=== PATIENT | female | born 1955 | race Caucasian/White ===

== ENCOUNTER 2016-05-30 17:50 | Inpatient (IN) | payer MEDICAID ==
[~2016-05-30] VITALS: Ht 165.1 cm; Wt 58.6 kg
[~2016-05-30 17:50] MED LIST: PRED20 PO; TRIA.1%T TOP; Z.0.NO CURRENT MEDS
[2016-05-30 17:57] VITALS: BP 178/81; PULSE 102; RESP 22; TEMP 98.7; O2SAT 94
[2016-05-30] MEDS ORDERED: ONDANSETRON HCL 4 MG/2 ML VIAL IVP ONE (18:00)
[2016-05-30] MEDS ORDERED: PANTOPRAZOLE SODIUM 40 MG VIAL IVP ONE (18:00)
--- NOTE | 2016-05-30 18:08 | PD ---
HPI Chief Complaint: GI Complaint Time Seen by Provider: 17:58 Travel History International Travel<30 days: No Contact w/Intl Traveler<30days: No Traveled to known affect area: No History of Present Illness HPI 60-year-old female with history of lung cancer and [employer] cancer currently being treated by Dr. Rodriguez, presents to the ER today brought in by EMS for several days history of diarrhea, feeling fatigued, and today had blood in her stools. She has been nauseous, not eating well at home. She denies any fevers or any other symptoms. Patient states that she has had C. difficile diarrhea in the past and states it feels like that. She denies any recent antibiotic use. She does not know any sick contacts. Modifying Factors: None Associated Signs & Symptoms: Nausea, diarrhea, blood in the stools Risk Factors: None PFSH Past Medical History Chemotherapy: Yes Cerebrovascular Accident: Yes Diminished Hearing: Yes (TINNITIS) Hypertension: Yes (HAS STOPPED TAKING HER MED) Musculoskeletal: Yes (POSSIBLE TYPE OF ARTHRITIS) Respiratory: Yes Menopausal: Yes Dilation and Curettage (D&C): Yes Past Surgical History Section: Yes Tonsillectomy: Yes Social History Alcohol Use: Yes (STATES SHE HAD 9 SHOTS OF VODKA LAST PM, ONLY DRINKS WHEN HANDS HURT) Tobacco Use: Yes () Substance Use: No Allergies-Medications (Allergen,Severity, Reaction): Coded Allergies: Penicillin (Verified Allergy, Severe, THROAT SWELLS, 05/30/16) Reported Meds & Prescriptions Reported Meds & Active Scripts Active Reported Dexamethasone 4 Mg Tab 4 Mg PO BID Prochlorperazine Maleate 10 Mg Tab 10 Mg PO Q6H PRN Zofran (Ondansetron HCl) 8 Mg Tab 8 Mg PO TID Review of Systems Except as stated in HPI: all other systems reviewed are Neg Physical Exam Narrative GENERAL: Well-nourished, well-developed elderly white female patient in no acute distress. Awake and oriented 3. SKIN: Warm and dry. HEAD: Normocephalic. EYES: No scleral icterus. No injection or drainage. NECK: Supple, trachea midline. CARDIOVASCULAR: Regular rate and rhythm without murmurs, gallops, or rubs. RESPIRATORY: Breath sounds equal bilaterally. No accessory muscle use. GASTROINTESTINAL: Abdomen soft, non-tender, nondistended. RECTAL EXAM: No masses or tenderness, stool is reddish brown. Hemoccult positive. MUSCULOSKELETAL: No cyanosis, or edema. BACK: Nontender without obvious deformity. No CVA tenderness. Data Data Last Documented VS Vital Signs Date Time Temp Pulse Resp B/P Pulse Ox O2 Delivery O2 Flow Rate FiO2 05/30/16 19:12 99 14 170/78 94 Room Air 05/30/16 18:03 94 05/30/16 17:57 98.7 Orders Complete Blood Count With Diff (05/30/16 17:58) Comprehensive Metabolic Panel (05/30/16 17:58) Lipase (05/30/16 17:58) Prothrombin Time / Inr (Pt) (05/30/16 17:58) Act Partial Throm Time (Ptt) (05/30/16 17:58) Urinalysis - C+S If Indicated (05/30/16 17:58) Type And Screen (05/30/16 17:58) Ecg Monitoring (05/30/16 17:58) Iv Access Insert/Monitor (05/30/16 17:58) Oximetry (05/30/16 17:58) Ondansetron Inj (Zofran Inj) (05/30/16 18:00) Pantoprazole Inj (Protonix Inj) (05/30/16 18:00) Sodium Chloride 0.9% Flush (Ns Flush) (05/30/16 18:00) C Diff Toxin Pcr (05/30/16 17:58) Admit Order (Ed Use Only) (05/30/16 19:12) Labs Laboratory Tests Test 05/30/16 05/30/16 18:05 18:50 White Blood Count 6.3 TH/MM3 Red Blood Count 2.80 MIL/MM3 Hemoglobin 10.6 GM/DL Hematocrit 30.5 % Mean Corpuscular Volume 109.1 FL Mean Corpuscular Hemoglobin 37.8 PG Mean Corpuscular Hemoglobin 34.6 % Concent Red Cell Distribution Width 15.3 % Platelet Count 146 TH/MM3 Mean Platelet Volume 7.9 FL Neutrophils (%) (Auto) 90.2 % Lymphocytes (%) (Auto) 2.6 % Monocytes (%) (Auto) 6.5 % Eosinophils (%) (Auto) 0.1 % Basophils (%) (Auto) 0.6 % Neutrophils # (Auto) 5.7 TH/MM3 Lymphocytes # (Auto) 0.2 TH/MM3 Monocytes # (Auto) 0.4 TH/MM3 Eosinophils # (Auto) 0.0 TH/MM3 Basophils # (Auto) 0.0 TH/MM3 CBC Comment DIFF FINAL Differential Comment Prothrombin Time 13.5 SEC Prothromb Time International 1.2 RATIO Ratio Activated Partial 29.7 SEC Thromboplast Time Sodium Level 130 MEQ/L Potassium Level 3.3 MEQ/L Chloride Level 85 MEQ/L Carbon Dioxide Level 26.7 MEQ/L Anion Gap 18 MEQ/L Blood Urea Nitrogen 2 MG/DL Creatinine 0.30 MG/DL Estimat Glomerular Filtration 226 ML/MIN Rate Random Glucose 56 MG/DL Calcium Level 7.6 MG/DL Total Bilirubin 1.1 MG/DL Aspartate Amino Transf 146 U/L (AST/SGOT) Alanine Aminotransferase 67 U/L (ALT/SGPT) Alkaline Phosphatase 460 U/L Total Protein 5.8 GM/DL Albumin 2.3 GM/DL Lipase 36 U/L Blood Type O POSITIVE Antibody Screen NEGATIVE Blood Bank Comment Urine Color YELLOW Urine Turbidity CLEAR Urine pH 5.5 Urine Specific [place] 1.013 Urine Protein 30 mg/dL Urine Glucose (UA) NEG mg/dL Urine Ketones 150 mg/dL Urine Occult Blood NEG Urine Nitrite NEG Urine Bilirubin SMALL Urine Urobilinogen 2.0 MG/DL Urine Leukocyte Esterase NEG Urine RBC LESS THAN 1 /hpf Urine WBC 1 /hpf Urine Squamous Epithelial 1 /hpf Cells Urine Mucus FEW /lpf Microscopic Urinalysis Comment CATH-CULT NOT IND MDM Medical Decision Making Medical Screen Exam Complete: Yes Emergency Medical Condition: Yes Medical Record Reviewed: Yes Interpretation(s) Laboratory Tests Test 05/30/16 18:05 Red Blood Count 2.80 MIL/MM3 (4.00-5.30) Hemoglobin 10.6 GM/DL (11.6-15.3) Hematocrit 30.5 % (35.0-46.0) Mean Corpuscular Volume 109.1 FL (80.0-100.0) Mean Corpuscular Hemoglobin 37.8 PG (27.0-34.0) Platelet Count 146 TH/MM3 (150-450) Neutrophils (%) (Auto) 90.2 % (16.0-70.0) Lymphocytes (%) (Auto) 2.6 % (9.0-44.0) Lymphocytes # (Auto) 0.2 TH/MM3 (1.0-4.8) Prothrombin Time 13.5 SEC (9.8-11.6) Sodium Level 130 MEQ/L (136-145) Potassium Level 3.3 MEQ/L (3.5-5.1) Chloride Level 85 MEQ/L (98-107) Anion Gap 18 MEQ/L (5-15) Blood Urea Nitrogen 2 MG/DL (7-18) Creatinine 0.30 MG/DL (0.50-1.00) Random Glucose 56 MG/DL (74-106) Calcium Level 7.6 MG/DL (8.5-10.1) Total Bilirubin 1.1 MG/DL (0.2-1.0) Aspartate Amino Transf 146 U/L (15-37) (AST/SGOT) Alanine Aminotransferase 67 U/L (10-53) (ALT/SGPT) Alkaline Phosphatase 460 U/L (45-117) Total Protein 5.8 GM/DL (6.4-8.2) Albumin 2.3 GM/DL (3.4-5.0) Lipase 36 U/L (73-393) Differential Diagnosis Nausea, diarrhea, blood in the stoolsGI bleed versus C. difficile toxin versus gastroenteritis versus diverticulitis versus dehydration versus metabolic issues Narrative Course Hemoccult test is positive. H&H is stable. Her abdomen is benign. She was given Protonix in the ER. At this point, my plan would be to admit her for further evaluation. C. difficile toxin was also ordered for further evaluation. Case was discussed with Dr. Kumar for admission. [facility] Point of Care Internal Pos. & Neg. Controls: Passed Fecal Specimen Occult Blood: Positive Diagnosis Primary Impression: GI bleed Admitting Information Admitting Physician Requests: Admit Jacqueline James MD May 30, 2016 18:08
[2016-05-30 18:19] LABS: AUTOMATED NEUTROPHIL # 5.7 TH/MM3 (1.8-7.7); BASOPHIL % 0.6 % (0.0-2.0); EOSINOPHIL % 0.1 % (0.0-4.0); HEMATOCRIT 30.5 % (35.0-46.0); HEMO FLAGS DIFF FINAL; LYMPH % 2.6 % (9.0-44.0); LYMPHOCYTE # 0.2 TH/MM3 (1.0-4.8); MEAN CELL VOLUME 109.1 FL (80.0-100.0); MEAN CORPUSCULAR HEMOGLOBIN 37.8 PG (27.0-34.0); MEAN CORPUSCULAR HGB CONC 34.6 % (32.0-36.0); MONO % 6.5 % (0.0-8.0); NEUT % 90.2 % (16.0-70.0); PLATELET COUNT 146 TH/MM3 (150-450); RED CELL DISTRIBUTION WIDTH 15.3 % (11.6-17.2); WHITE BLOOD COUNT 6.3 TH/MM3 (4.0-11.0)
[2016-05-30 18:37] LABS: APTT (PATIENT) 29.7 SEC (24.3-30.1); INTERNATIONAL NORMALIZED RATIO 1.2 RATIO; PROTHROMBIN TIME - PATIENT 13.5 SEC (9.8-11.6)
[2016-05-30 18:40] LABS: ALKALINE PHOSPHATASE 460 U/L (45-117); ALT (GPT) 67 U/L (10-53); ANION GAP 18 MEQ/L (5-15); AST (GOT) 146 U/L (15-37); BICARBONATE 26.7 MEQ/L (21.0-32.0); BLOOD UREA NITROGEN 2 MG/DL (7-18); CHLORIDE 85 MEQ/L (98-107); GLOMERULAR FILTRATION RATE 226 ML/MIN (>89); POTASSIUM 3.3 MEQ/L (3.5-5.1); SODIUM (NA) 130 MEQ/L (136-145); TOTAL BILIRUBIN ADULT 1.1 MG/DL (0.2-1.0)
[2016-05-30] MEDS ORDERED: PROC10TA PO (19:01)
[2016-05-30] MEDS ORDERED: DEXA4TAB PO (19:01)
[2016-05-30] MEDS ORDERED: ZOFR8TAB PO (19:01)
[2016-05-30 19:09] LABS: BLOOD, URINE NEG (NEG); COMMENT (UR) CATH-CULT NOT IND; CULTURE IF INDICATED CATH CULTURE NOT IND; GLUCOSE,URINE NEG (NEG); KETONE, URINE 150 mg/dL (NEG); MUCUS URINE FEW /lpf (OCC); NITRITE,URINE NEG (NEG); PH, URINE 5.5 (5.0-8.5); SQUAMOUS EPITHELIAL CELL URINE 1 /hpf (0-5); URINE COLOR YELLOW (YELLW/STRAW)
[2016-05-30] MEDS: SODIUM CHLORIDE 0.9% FLUSH 5 ML FLUSH IVF PRN (19:10)
[2016-05-30 19:12] VITALS: BP 170/78; PULSE 99; RESP 14; O2SAT 94
[2016-05-30] MEDS ORDERED: ONDANSETRON HCL 4 MG/2 ML VIAL IV PUSH PRN (19:15)
[2016-05-30] MEDS ORDERED: SODIUM CHLOR 0.9% 1000 ML INJ 1,000 ML IV SCH (20:00)
[2016-05-30 20:09] VITALS: BP 168/74; PULSE 98; RESP 14; O2SAT 96
[2016-05-30 21:20] VITALS: BP 166/68; PULSE 96; RESP 16; O2SAT 96
--- NOTE | 2016-05-30 21:35 | HHI.HP ---
[facility] Service [facility] Primary Care Physician Christian Foss Admission Diagnosis GI bleed/diarrhea Diagnoses: (1) GI bleed Diagnosis: Principal Chief Complaint: rectal bleed Travel History International Travel<30 Days: No Contact w/Intl Traveler <30 Da: No Traveled to Known Affected Are: No History of Present Illness patient is a 60 y/o female with history of cervical and lung cancer, hypertension who presented to ER with rectal bleed. she says that she had one episode of rectal bleed earlier today. she says that she passed some bright-red and blood clots. she denies any abdominal pain, nausea or vomiting but she says that she feels very weak. she says that she never had colonoscopy in the past. she denies any sob but she has some dizziness when she's standing up. she's being followed up by and the last chemo session was about two months ago. Review of Systems Constitutional: COMPLAINS OF: Fatigue, Dizziness, DENIES: Fever, Weight loss, Chills, Night Sweats Eyes: DENIES: Blurred vision, Diplopia, Vision loss, Double Vision Ears, nose, mouth, throat: DENIES: Tinnitus, Vertigo, Throat pain, Epistaxis Respiratory: DENIES: Apneas, Cough, Snoring, Wheezing, Hemoptysis, Sputum production, Shortness of breath Cardiovascular: DENIES: Chest pain, Palpitations, Syncope, Dyspnea on Exertion , PND, Lower Extremity Edema, Orthopnea, Claudication Gastrointestinal: COMPLAINS OF: Bloody stools, DENIES: Abdominal pain, Black stools, Constipation, Diarrhea, Nausea, Vomiting, Difficulty Swallowing, Anorexia Genitourinary: DENIES: Urinary frequency, Urgency, Hematuria, Dysuria Musculoskeletal: DENIES: Joint pain, Muscle aches, Stiffness, Joint Swelling Integumentary: DENIES: Rash Neurologic: DENIES: Abnormal gait, Headache, Localized weakness, Paresthesias, Seizures, Speech Problems, Tremor, Poor Balance Psychiatric: DENIES: Anxiety, Confusion, Mood changes, Depression, Hallucinations, Agitation, Suicidal Ideation, Homicidal Ideation, Delusions Past Family Social History Past Medical History cervical and lung cancer hypertension Past Surgical History tonsillectomy Reported Medications none. Allergies: Coded Allergies: Penicillin (Verified Allergy, Severe, THROAT SWELLS, 05/30/16) Active Ordered Medications Current Medications Ondansetron HCl (Zofran Inj) 4 mg ONCE ONCE IVP Last administered on at 19:09; Start 05/30/16 at 18:00; Stop 05/30/16 at 18:02; Status DC Pantoprazole Sodium (Protonix Inj) 40 mg ONCE ONCE IVP Last administered on at 19:09; Start 05/30/16 at 18:00; Stop 05/30/16 at 18:02; Status DC IV Flush (NS Flush) 2 ml UNSCH PRN IVF FLUSH AFTER USING IV ACCESS Last administered on 05/30/16at 19:10; Start 05/30/16 at 18:00 Pantoprazole Sodium 40 mg 40 mg Q24H IV PUSH ; Start 05/31/16 at 06:00 Sodium Chloride (NS 1000 ml Inj) 1,000 ml @ 100 mls/hr Q10H IV Last administered on 05/30/16at 19:57; Start 05/30/16 at 20:00 Ondansetron HCl (Zofran Inj) 4 mg Q8HR PRN IV PUSH NAUSEA; Start 05/30/16 at 19:15 Family History not relevant. Social History smokes ten cigarettes a day- drinks three times a week. Physical Exam Vital Signs Vital Signs Date Time Temp Pulse Resp B/P Pulse Ox O2 Delivery O2 Flow Rate FiO2 05/30/16 20:09 98 14 168/74 96 Room Air 05/30/16 19:12 99 14 170/78 94 Room Air 05/30/16 18:03 Room Air 94 05/30/16 17:57 98.7 102 22 178/81 94 Physical Exam GENERAL: This is a well-nourished, well-developed patient, in no apparent distress. SKIN: No rashes, ecchymoses or lesions. Cool and dry. HEAD: Atraumatic. Normocephalic. No temporal or scalp tenderness. EYES: Pupils equal round and reactive. Extraocular motions intact. No scleral icterus. No injection or drainage. ENT: Nose without bleeding, purulent drainage or septal hematoma. Throat without erythema, tonsillar hypertrophy or exudate. Uvula midline. Airway patent. NECK: Trachea midline. No JVD or lymphadenopathy. Supple, nontender, no meningeal signs. CARDIOVASCULAR: Regular rate and rhythm without murmurs, gallops, or rubs. RESPIRATORY: Clear to auscultation. Breath sounds equal bilaterally. No wheezes , rales, or rhonchi. GASTROINTESTINAL: Abdomen soft, non-tender, nondistended. No hepato-splenomegaly , or palpable masses. No guarding. MUSCULOSKELETAL: Extremities with mild bilateral pedal edema. NEUROLOGICAL: Awake and alert. Cranial nerves II through XII intact. Motor and sensory grossly within normal limits. Five out of 5 muscle strength in all muscle groups. Normal speech. Laboratory Laboratory Tests Test 05/30/16 05/30/16 18:05 18:50 White Blood Count 6.3 Red Blood Count 2.80 Hemoglobin 10.6 Hematocrit 30.5 Mean Corpuscular Volume 109.1 Mean Corpuscular Hemoglobin 37.8 Mean Corpuscular Hemoglobin 34.6 Concent Red Cell Distribution Width 15.3 Platelet Count 146 Mean Platelet Volume 7.9 Neutrophils (%) (Auto) 90.2 Lymphocytes (%) (Auto) 2.6 Monocytes (%) (Auto) 6.5 Eosinophils (%) (Auto) 0.1 Basophils (%) (Auto) 0.6 Neutrophils # (Auto) 5.7 Lymphocytes # (Auto) 0.2 Monocytes # (Auto) 0.4 Eosinophils # (Auto) 0.0 Basophils # (Auto) 0.0 CBC Comment DIFF FINAL Differential Comment Prothrombin Time 13.5 Prothromb Time International 1.2 Ratio Activated Partial 29.7 Thromboplast Time Sodium Level 130 Potassium Level 3.3 Chloride Level 85 Carbon Dioxide Level 26.7 Anion Gap 18 Blood Urea Nitrogen 2 Creatinine 0.30 Estimat Glomerular Filtration 226 Rate Random Glucose 56 Calcium Level 7.6 Total Bilirubin 1.1 Aspartate Amino Transf 146 (AST/SGOT) Alanine Aminotransferase 67 (ALT/SGPT) Alkaline Phosphatase 460 Total Protein 5.8 Albumin 2.3 Lipase 36 Blood Type O POSITIVE Antibody Screen NEGATIVE Blood Bank Comment Urine Color YELLOW Urine Turbidity CLEAR Urine pH 5.5 Urine Specific [place] 1.013 Urine Protein 30 Urine Glucose (UA) NEG Urine Ketones 150 Urine Occult Blood NEG Urine Nitrite NEG Urine Bilirubin SMALL Urine Urobilinogen 2.0 Urine Leukocyte Esterase NEG Urine RBC LESS THAN 1 Urine WBC 1 Urine Squamous Epithelial 1 Cells Urine Mucus FEW Microscopic Urinalysis Comment CATH-CULT NOT IND Result Diagram: 05/30/16180405/30/161804 Assessment and Plan Assessment and Plan A/P -rectal bleed with diarrhea monitor H/H- continue PPI- will consult GI check the stool for culture -hyponatremia; start IV NS and monitor the level; BMP in am -mild hypokalemia; will replace and monitor -generalized weakness- will consult PT -elevated LFT's- check liver sonogram -history of cervical and lung cancer- f/u with -hypertension; vasotec prn for now- will monitor -DVT prophylaxis with SCD's- no chemical prophylaxis because of GI bleed Discussed Condition With the ER physician and the patient. Problem Qualifiers (1) GI bleed: Qualified Code: K92.2 - Gastrointestinal hemorrhage, unspecified gastrointestinal hemorrhage type Gina Hale MD May 30, 2016 21:35
[2016-05-30] MEDS ORDERED: ENALAPRILAT 1.25 MG/ML VIAL IV PUSH PRN (21:45)
[2016-05-30 22:19] VITALS: BP 170/72; PULSE 97; RESP 16; O2SAT 95
[2016-05-30] MEDS: NS + KCL 20 MEQ INJ 1,000 ML IV SCH (22:27)
--- NOTE | 2016-05-30 22:42 | RADRPT ---
EXAM DATE/TIME: 05/30/2016 21:55 [facility] COMPARISON: No previous studies available for comparison. INDICATIONS : Abnormal labs. MEDICAL HISTORY : Stroke. Hypertension. Tinnitis. Melena. Arthritis. Lung cancer. SURGICAL HISTORY : Tonsillectomy. section. D&C. Chemotherapy. Right chest port. ENCOUNTER: Initial ACUITY: 1 day PAIN SCORE: 1/10 LOCATION: Right upper quadrant MEASUREMENTS: LIVER: 20.2 cm length COMMON DUCT: 7 mm RIGHT KIDNEY: 9.8 x 4.4 x 6.8 cm SPLEEN: 8.4 cm length FINDINGS: The liver is slightly echogenic which maybe due to fatty infiltration and or hepatocellular dysfuncti on. There is sludge within the gallbladder with slight pericholecystic fluid and gallbladder wall tree sures 2 mm. The visualized head of the pancreas, and right kidney appear grossly intact for technique . CONCLUSION: 1. The liver is slightly echogenic which maybe due to fatty infiltration and or hepatocellular dysfun ction. 2. Sludge in the gallbladder with mild pericholecystic fluid nonspecific. No definite gallstones. Shantel Pryor MD on May 30, 2016 at 22:38 Board Certified Radiologist. This report was verified electronically.
[2016-05-30 22:44] VITALS: BP 146/79; PULSE 94; RESP 18; TEMP 98; O2SAT 98
[2016-05-31 02:02] LABS: HEMATOCRIT 29.2 % (35.0-46.0)
[2016-05-31 04:16] VITALS: BP 121/57; PULSE 99; RESP 16; TEMP 98.2; O2SAT 94
[2016-05-31 04:28] LABS: AUTOMATED NEUTROPHIL # 4.9 TH/MM3 (1.8-7.7); BASOPHIL % 0.2 % (0.0-2.0); EOSINOPHIL % 0.4 % (0.0-4.0); HEMATOCRIT 27.6 % (35.0-46.0); HEMO FLAGS DIFF FINAL; LYMPH % 3.3 % (9.0-44.0); LYMPHOCYTE # 0.2 TH/MM3 (1.0-4.8); MEAN CELL VOLUME 108.1 FL (80.0-100.0); MEAN CORPUSCULAR HEMOGLOBIN 38.1 PG (27.0-34.0); MEAN CORPUSCULAR HGB CONC 35.2 % (32.0-36.0); MONO % 6.2 % (0.0-8.0); NEUT % 89.9 % (16.0-70.0); PLATELET COUNT 121 TH/MM3 (150-450); RED BLOOD COUNT 2.55 MIL/MM3 (4.00-5.30); RED CELL DISTRIBUTION WIDTH 14.8 % (11.6-17.2); WHITE BLOOD COUNT 5.4 TH/MM3 (4.0-11.0)
[2016-05-31 04:56] LABS: BICARBONATE 25.9 MEQ/L (21.0-32.0)
[2016-05-31 05:01] LABS: POTASSIUM 2.8 MEQ/L (3.5-5.1)
[2016-05-31] MEDS ORDERED: POTASSIUM CHLOR 20 MEQ PREMIX 100 ML IV ONE (05:15)
[2016-05-31 05:24] LABS: CALCIUM-PROTEIN CORRECTED 8.6 MG/DL (8.5-10.1)
[2016-05-31] MEDS ORDERED: PANTOPRAZOLE SODIUM 40 MG VIAL IV PUSH SCH (06:00)
[2016-05-31 08:15] VITALS: BP 140/72; PULSE 95; RESP 18; TEMP 99; O2SAT 93
[2016-05-31 08:15] LABS: C. DIFF EPI 027 PRESUMPTIVE NEGATIVE (NEGATIVE)
[2016-05-31 08:57] LABS: C. DIFF TOXIN PCR POSITIVE (NEGATIVE)
--- NOTE | 2016-05-31 09:33 | MB ---
cc: CINTHIA VÁSQUEZ MD DATE OF CONSULTATION 05/31/2016 TYPE OF CONSULTATION GI consult REFERRING PHYSICIAN Dr. Hale CONSULTING PHYSICIAN Dr. Vásquez REASON FOR CONSULTATION Bleeding per rectum HISTORY OF PRESENT ILLNESS This is a 60-year-old female patient with a past medical history of hypertension, lung and cervical CA status post chemotherapy who presented to the emergency room complaining of rectal bleeding. The rectal bleeding was earlier that day and she had two episodes of similar bleeding in the past that were described as fresh bright red in color with occasional clots. She denies any abdominal pain, change in bowel habits, although she sometimes mentions attacks of diarrhea and constipation. She denies change in weight or appetite and she also overall feels weak, but no other associated symptoms. The patient denies any nausea or vomiting, jaundice or any other gastrointestinal symptoms. REVIEW OF SYSTEMS GENERAL: The patient is complaining of fatigue and generalized weakness, but denies any change in weight or appetite. No weight loss, fevers, chills or rigors. CARDIAC: Denies any chest pain, shortness of breath or palpitations. CHEST: Denies any shortness of breath, dyspnea, orthopnea or PND. GASTROINTESTINAL: Denies any symptoms other than the ones mentioned in the history of present illness. GENITOURINARY: Denies any polyuria, aneuria or dysuria. NEUROLOGIC: No headache, dizziness, loss of consciousness. SKIN: Denies any skin rash, itching or skin discoloration. PAST MEDICAL HISTORY Positive for: 1. Cervical and lung CA 2. Hypertension PAST SURGICAL HISTORY 1. Tonsillectomy 2. MEDICATIONS None ALLERGIES PENICILLIN, REACTION, THROAT SWELLS. FAMILY HISTORY Noncontributory PSYCHOSOCIAL HISTORY The patient is a smoker and drinks alcohol occasionally. PHYSICAL EXAM On examination, the patient appeared to be comfortable and not in distress or in pain. Hemodynamically stable with a blood pressure of 150/75, respiratory rate of 14, pulse of 98. HEAD AND NECK: Normocephalic, atraumatic. Pupils equal and reactive to light. Supple neck. No lymphadenopathy. No thyromegaly. CHEST: Chest examination clear to auscultation bilaterally. No crackles or wheezes. HEART: Regular rate and rhythm. No murmurs. ABDOMEN: Soft, nontender. No hepatosplenomegaly. No palpable masses. EXTREMITIES: Normal pulses. No edema. NEUROLOGIC EXAMINATION: Nonfocal. Cranial nerves II-XII grossly intact. SKIN: No rashes. LABORATORY DATA Hemoglobin 10.6 down to 9.7 today, hematocrit 30.5 down to 27.6. Indices suggestive of macrocytic picture. PT/PTT within normal limits. Chemistry potassium of 2.8, creatinine 0.3, otherwise unremarkable labs. LABORATORY DATA His liver ultrasound fat infiltration of the liver noted with sludge in the gallbladder and mild pericholecystic fluids and no stones. ASSESSMENT/PLAN A 60-year-old female patient with past medical history of lung and cervical CA and hypertension who presented with: 1. Bleeding per rectum described as intermittent with fresh blood red in color and painless. 2. No previous endoscopy evaluation, colonoscopy or endoscopy. 3. Significant past medical history for malignancies. 4. A drop in her blood counts and anemia since admission. 5. Macrocytic normochromic anemia. RECOMMENDATIONS We will schedule the patient for endoscopy evaluation including endoscopy and a colonoscopy. We will start her on a clear liquid diet and GoLYTELY in the afternoon in addition to Dulcolax for bowel cleansing. A full explanation of the procedure including risks, benefits and possible complications was explained to the patient and she agreed to proceed with that. Further recommendations to follow. Cinthia SALES /8:59 AM /9:[address]
[2016-05-31 11:56] VITALS: BP 137/97; PULSE 99; RESP 18; TEMP 97.8; O2SAT 95
--- NOTE | 2016-05-31 15:11 | HHI.PR ---
Subjective Remarks Laying in bed, she is little anxious about the procedure tomorrow No chest pain or short of breath or headache Objective Vitals Vital Signs Date Time Temp Pulse Resp B/P Pulse Ox O2 Delivery O2 Flow Rate FiO2 05/31/16 11:56 97.8 99 18 137/97 95 05/31/16 08:15 99.0 95 18 140/72 93 05/31/16 04:16 98.2 99 16 121/57 94 05/30/16 22:44 98.0 94 18 146/79 98 05/30/16 22:19 97 16 170/72 95 Room Air 05/30/16 21:20 96 16 166/68 96 Room Air 05/30/16 20:09 98 14 168/74 96 Room Air 05/30/16 19:12 99 14 170/78 94 Room Air 05/30/16 18:03 Room Air 94 05/30/16 17:57 98.7 102 22 178/81 94 Result Diagram: 05/31/16 0353 05/31/16 0353 Objective Remarks GENERAL: This is a well-nourished, well-developed patient, in no apparent distress. SKIN: No rashes, warm and dry HEAD: Atraumatic. Normocephalic. EYES: Pupils equal round and reactive. Extraocular motions intact. No scleral icterus. ENT: Nose without bleeding, or drainage, Airway patent. NECK: Trachea midline. Supple CARDIOVASCULAR: Regular rate and rhythm without murmurs, gallops, or rubs. RESPIRATORY: Fair air entry bilaterally. No wheezes, rales, or rhonchi. GASTROINTESTINAL: Abdomen soft, non-tender, nondistended. Positive bowel sounds MUSCULOSKELETAL: Extremities without clubbing, cyanosis, or edema. Pedal pulses appreciated NEUROLOGICAL: Awake and alert. Moves all extremity. Normal speech.no focal neurological deficit A/P Problem List: (1) GI bleed ICD Code: K92.2 Status: Acute Assessment and Plan C. difficile diarrhea Acute rectal bleed Hyponatremia Hypokalemia Elevated LFT Generalized weakness Hypertension History of cervical and lung cancer following up with Dr. Montano DVT prophylaxis with SCD only due to GI bleed Plan: Continue IVF fluid, IV Protonix Appreciate GI consultation, plan for EGD and colonoscopy tomorrow Monitor H&H Personally reviewed liver ultrasound showing changes consistent with fatty liver , pericholecystic fluid nonspecific PT OT Problem Qualifiers (1) GI bleed: Qualified Code: K92.2 - Gastrointestinal hemorrhage, unspecified gastrointestinal hemorrhage type Katie Mishra MD May 31, 2016 15:11
[2016-05-31 15:47] VITALS: BP 111/66; PULSE 100; RESP 18; O2SAT 94
[2016-05-31] MEDS: NS + KCL 20 MEQ INJ 1,000 ML IV SCH ×2 (15:53→17:33)
[2016-05-31] MEDS ORDERED: PEG (High)/E-LYTE SOLN 4000 ML BTL PO ONE (16:00)
[2016-05-31] MEDS ORDERED: BISACODYL EC 5 MG TABEC PO ONE (16:00)
[2016-05-31] MEDS: PANTOPRAZOLE SODIUM 40 MG VIAL IV PUSH SCH (17:33)
[2016-05-31 19:13] VITALS: BP 154/81; PULSE 103; RESP 20; TEMP 97.6; O2SAT 95
[2016-05-31 19:59] LABS: BICARBONATE 30.6 MEQ/L (21.0-32.0); MAGNESIUM 0.7 MG/DL (1.5-2.5); POTASSIUM 3.1 MEQ/L (3.5-5.1)
[2016-05-31] MEDS ORDERED: DEXAMETHASONE 4 MG TAB PO SCH (21:00)
[2016-05-31 23:27] VITALS: BP 127/73; PULSE 92; RESP 20; TEMP 97.6; O2SAT 95
[2016-06-01] MEDS: NS + KCL 20 MEQ INJ 1,000 ML IV SCH ×2 (03:24→12:52)
[2016-06-01 03:59] VITALS: BP 138/83; PULSE 90; RESP 20; TEMP 97.6; O2SAT 95
[2016-06-01 04:50] LABS: BICARBONATE 31.5 MEQ/L (21.0-32.0)
[2016-06-01 04:51] LABS: POTASSIUM 2.5 MEQ/L (3.5-5.1)
[2016-06-01 05:10] LABS: CALCIUM-PROTEIN CORRECTED 8.3 MG/DL (8.5-10.1)
[2016-06-01] MEDS ORDERED: MAGNESIUM SULFATE INJ 4 GM in DEXTROSE 5% IN WATER 100ML INJ 92 ML IV SCH ×2 (05:15)
[2016-06-01] MEDS ORDERED: POTASSIUM PHOSPHATE INJ 30 MMOL in SODIUM CHLOR 0.9% 250 ML INJ 250 ML IV ONE (05:15)
[2016-06-01] MEDS ORDERED: POTASSIUM CL 40 MEQ/30 ML LIQ UDC PO ONE (05:15)
[2016-06-01] MEDS ORDERED: MAGNESIUM SULFATE 1 GM PREMIX 100 ML IV SCH (05:15)
[2016-06-01] MEDS: PANTOPRAZOLE SODIUM 40 MG VIAL IV PUSH SCH ×2 (05:37→17:56)
[2016-06-01 07:34] VITALS: BP 117/71; PULSE 88; RESP 16; TEMP 97.6; O2SAT 94
[2016-06-01 11:47] VITALS: BP 121/69; PULSE 88; RESP 16; TEMP 97.3; O2SAT 94
[2016-06-01] MEDS ORDERED: BISACODYL EC 5 MG TABEC PO ONE (12:00)
--- NOTE | 2016-06-01 15:14 | HHI.PR ---
Subjective Remarks Patient not happy about changing GI procedure scope till tomorrow "Either today or never " Afebrile, she stated the diarrhea still bad No abdominal pain or fever Objective Vitals Vital Signs Date Time Temp Pulse Resp B/P Pulse Ox O2 Delivery O2 Flow Rate FiO2 06/01/16 11:47 97.3 88 16 121/69 94 06/01/16 07:34 97.6 88 16 117/71 94 06/01/16 03:59 97.6 90 20 138/83 95 05/31/16 23:27 97.6 92 20 127/73 95 05/31/16 19:13 97.6 103 20 154/81 95 05/31/16 15:47 100 18 111/66 94 I/O 05/31/16 05/31/16 05/31/16 06/01/16 06/01/16 06/01/16 07:00 15:00 23:00 07:00 15:00 23:00 Intake Total 800 ml Balance 800 ml Intake Oral 400 ml IV Total 400 ml # Voids 2 1 2 # Bowel Movements 1 2 5 Result Diagram: 05/31/16 0353 06/01/16 0355 Objective Remarks GENERAL: This is a well-nourished, well-developed patient, in no apparent distress. SKIN: No rashes, warm and dry HEAD: Atraumatic. Normocephalic. EYES: Pupils equal round and reactive. Extraocular motions intact. No scleral icterus. ENT: Nose without bleeding, or drainage, Airway patent. NECK: Trachea midline. Supple CARDIOVASCULAR: Regular rate and rhythm without murmurs, gallops, or rubs. RESPIRATORY: Fair air entry bilaterally. No wheezes, rales, or rhonchi. GASTROINTESTINAL: Abdomen soft, non-tender, nondistended. Positive bowel sounds MUSCULOSKELETAL: Extremities without clubbing, cyanosis, or edema. Pedal pulses appreciated NEUROLOGICAL: Awake and alert. Moves all extremity. Normal speech.no focal neurological deficit A/P Problem List: (1) GI bleed ICD Code: K92.2 Status: Acute Assessment and Plan C. difficile diarrhea Acute rectal bleed Hyponatremia Hypokalemia Elevated LFT Generalized weakness Hypertension History of cervical and lung cancer following up with Dr. Montano DVT prophylaxis with SCD only due to GI bleed Plan: Potassium was 2.3 last night, will repeat BMP and replace as needed Continue IVF fluid, IV Protonix Appreciate GI consultation, plan was for EGD and colonoscopy today but change tomorrow due to not optimal bowel preparation Monitor H&H Personally reviewed liver ultrasound showing changes consistent with fatty liver , pericholecystic fluid nonspecific PT OT Problem Qualifiers (1) GI bleed: Qualified Code: K92.2 - Gastrointestinal hemorrhage, unspecified gastrointestinal hemorrhage type Katie Mishra MD Jun 01, 2016 15:14
[2016-06-01] MEDS ORDERED: MAGNESIUM CITRATE SOLN 300 ML BTL PO ONE (16:00)
[2016-06-01 16:34] VITALS: BP 113/74; PULSE 89; RESP 16; TEMP 97.4; O2SAT 96
[2016-06-01 16:48] LABS: BICARBONATE 30.7 MEQ/L (21.0-32.0)
[2016-06-01 17:20] LABS: CALCIUM-PROTEIN CORRECTED 8.1 MG/DL (8.5-10.1)
[2016-06-01 18:37] LABS: REVIEW FLAG FINAL
[2016-06-01 20:23] VITALS: BP 134/70; PULSE 82; RESP 18; TEMP 98.4; O2SAT 97
[2016-06-02] VITALS (7 sets, daily range): BP systolic 121–145; BP diastolic 70–90; PULSE 74–95; RESP 16–18; TEMP 97.2–98.9; O2SAT 96–99
[2016-06-02 04:02] LABS: HEMATOCRIT 30.6 % (35.0-46.0); REVIEW FLAG FINAL
[2016-06-02] MEDS: PANTOPRAZOLE SODIUM 40 MG VIAL IV PUSH SCH ×2 (05:55→16:56)
[2016-06-02 06:16] LABS: BICARBONATE 31.2 MEQ/L (21.0-32.0)
[2016-06-02 06:19] LABS: POTASSIUM 2.9 MEQ/L (3.5-5.1)
[2016-06-02 07:02] LABS: CALCIUM-PROTEIN CORRECTED 7.9 MG/DL (8.5-10.1)
--- NOTE | 2016-06-02 09:30 | HHI.GIFU ---
Subjective Remarks Resting in bed. States that she absolutely does not want to pursue the EGD/ Colonoscopy. D/W patient the rationale, risks, benefits- pt states she understands, but still does not wish to pursue. (Adrianna Coyne) Objective Vitals I&O Vital Signs Date Time Temp Pulse Resp B/P Pulse Ox O2 Delivery O2 Flow Rate FiO2 06/02/16 07:39 97.7 80 18 121/90 97 06/02/16 04:26 98.9 74 18 135/70 98 06/02/16 00:20 98.8 74 18 134/74 97 06/01/16 20:23 98.4 82 18 134/70 97 06/01/16 16:34 97.4 89 16 113/74 96 06/01/16 11:47 97.3 88 16 121/69 94 I/O 06/01/16 06/01/16 06/01/16 06/02/16 06/02/16 06/02/16 07:00 15:00 23:00 07:00 15:00 23:00 Intake Total 800 ml 0 ml 0 ml Balance 800 ml 0 ml 0 ml Intake Oral 400 ml 0 ml 0 ml IV Total 400 ml # Voids 1 2 2 1 # Bowel Movements 2 5 3 1 Laboratory Laboratory Tests Test 06/01/16 06/01/16 06/02/16 06/02/16 16:00 18:17 03:46 05:30 Sodium Level 134 134 Potassium Level 3.0 2.9 Chloride Level 94 94 Carbon Dioxide Level 30.7 31.2 Anion Gap 9 9 Blood Urea Nitrogen 1 1 Creatinine 0.62 0.40 Estimat Glomerular Filtration 98 162 Rate Random Glucose 123 115 Calcium Level 7.1 6.9 Protein Corrected Calcium 8.1 7.9 Total Protein 5.3 5.1 Hemoglobin 11.0 10.8 Hematocrit 32.0 30.6 Imaging Last Impressions Liver Ultrasound 05/30/16 0000 Signed Impressions: Service Date/Time: Monday, May 30, 2016 21:55 - CONCLUSION: 1. The liver is slightly echogenic which maybe due to fatty infiltration and or hepatocellular dysfunction. 2. Sludge in the gallbladder with mild pericholecystic fluid nonspecific. No definite gallstones. Shantel Pryor MD Physical Exam HEENT: Normocephalic; atraumatic; no jaundice. CHEST: CTA CARDIAC: RRR ABDOMEN: Soft, nondistended, nontender; no hepatosplenomegaly; bowel sounds are present in all four quadrants. EXTREMITIES: No clubbing, cyanosis, or edema. SKIN: Multiple ecchymotic areas AIRPLANE INSPECTOR: No focal deficits; alert and oriented times three. (Adrianna Coyne) Assessment and Plan Plan ASSESSMENT: - BRBPR. Pt was scheduled for EGD/Colonoscopy today, she only sipped on prep yesterday and is now completely refusing procedures. D/W patient rationale, risks, benefits. She verbalizes understanding and is completely refusing. No further bleeding. HH stable - Anemia, macrocytic. 10.8/30.6. - Hypokalemia, Hypocalcemia, Hyponatremia. Per primary PLAN: - Regular diet - Cont. PPI - Check folate/B12 level - Pt refusing GI workup- EGD/Colonoscopy, will sign off - Pt seen and examined by Dr. Prieto and myself and this note is written on his behalf (Adrianna Coyne) Physician Comments Agree with plan as above, please notify us if needed. (Cinthia Prieto MD) Adrianna Coyne Jun 02, 2016 09:30 Cinthia Prieto MD Jun 02, 2016 16:23
[2016-06-02] MEDS ORDERED: PROT40TA PO (10:14)
[2016-06-02] MEDS ORDERED: POTASSIUM CHLORIDE 20 MEQ CONTROLLED RELEASE TAB PO SCH (10:15)
--- NOTE | 2016-06-02 10:15 | HHI.DCPOC ---
Discharge Care Plan Additional Problems rectal bleed Goals to Promote Your Health * To prevent worsening of your condition and complications * To maintain your health at the optimal level Directions to Meet Your Goals Take your medications as prescribed Follow your dietary instruction Follow activity as directed Keep your appointments as scheduled Take your immunizations and boosters as scheduled If your symptoms worsen call your PCP, if no PCP go to Urgent Care Center or Emergency Room Smoking is Dangerous to Your Health. Avoid second hand smoke Call the 24-hour hour crisis hotline for domestic abuse at Katie Mishra MD Jun 02, 2016 10:15
--- NOTE | 2016-06-02 10:24 | HHI.DS ---
Discharge Summary Admission Date May 30, 2016 at 19:13 Admitting Diagnosis GI bleed/diarrhea (1) GI bleed ICD Code: K92.2 Diagnosis: Principal Procedures none Brief History - From Admission patient is a 60 y/o female with history of cervical and lung cancer, hypertension who presented to ER with rectal bleed. she says that she had one episode of rectal bleed earlier today. she says that she passed some bright-red and blood clots. she denies any abdominal pain, nausea or vomiting but she says that she feels very weak. she says that she never had colonoscopy in the past. she denies any sob but she has some dizziness when she's standing up. she's being followed up by and the last chemo session was about two months ago. CBC/BMP: 06/02/16 0346 06/02/16 0530 Significant Findings Laboratory Tests Test 05/30/16 05/30/16 05/31/16 05/31/16 18:05 18:50 01:43 03:53 Red Blood Count 2.80 MIL/MM3 2.55 MIL/MM3 (4.00-5.30) (4.00-5.30) Hemoglobin 10.6 GM/DL 10.5 GM/DL 9.7 GM/DL (11.6-15.3) (11.6-15.3) (11.6-15.3) Hematocrit 30.5 % 29.2 % 27.6 % (35.0-46.0) (35.0-46.0) (35.0-46.0) Mean Corpuscular Volume 109.1 FL 108.1 FL (80.0-100.0) (80.0-100.0) Mean Corpuscular Hemoglobin 37.8 PG 38.1 PG (27.0-34.0) (27.0-34.0) Platelet Count 146 TH/MM3 121 TH/MM3 (150-450) (150-450) Neutrophils (%) (Auto) 90.2 % 89.9 % (16.0-70.0) (16.0-70.0) Lymphocytes (%) (Auto) 2.6 % 3.3 % (9.0-44.0) (9.0-44.0) Lymphocytes # (Auto) 0.2 TH/MM3 0.2 TH/MM3 (1.0-4.8) (1.0-4.8) Prothrombin Time 13.5 SEC (9.8-11.6) Sodium Level 130 MEQ/L 133 MEQ/L (136-145) (136-145) Potassium Level 3.3 MEQ/L 2.8 MEQ/L (3.5-5.1) (3.5-5.1) Chloride Level 85 MEQ/L 90 MEQ/L (98-107) (98-107) Anion Gap 18 MEQ/L (5-15) 17 MEQ/L (5-15) Blood Urea Nitrogen 2 MG/DL (7-18) 3 MG/DL (7-18) Creatinine 0.30 MG/DL 0.35 MG/DL (0.50-1.00) (0.50-1.00) Random Glucose 56 MG/DL 60 MG/DL (74-106) (74-106) Calcium Level 7.6 MG/DL 7.3 MG/DL (8.5-10.1) (8.5-10.1) Total Bilirubin 1.1 MG/DL (0.2-1.0) Aspartate Amino Transf 146 U/L (15-37) (AST/SGOT) Alanine Aminotransferase 67 U/L (10-53) (ALT/SGPT) Alkaline Phosphatase 460 U/L (45-117) Total Protein 5.8 GM/DL 4.8 GM/DL (6.4-8.2) (6.4-8.2) Albumin 2.3 GM/DL (3.4-5.0) Lipase 36 U/L (73-393) Urine Protein 30 mg/dL (NEG-TRACE) Urine Ketones 150 mg/dL (NEG) Urine Bilirubin SMALL (NEG) Urine Mucus FEW /lpf (OCC) Test 05/31/16 05/31/16 06/01/16 06/01/16 06:00 19:00 03:55 16:00 Stool C. difficile Toxin (PCR) POSITIVE (NEGATIVE) Sodium Level 130 MEQ/L 134 MEQ/L 134 MEQ/L (136-145) (136-145) (136-145) Potassium Level 3.1 MEQ/L 2.5 MEQ/L 3.0 MEQ/L (3.5-5.1) (3.5-5.1) (3.5-5.1) Chloride Level 88 MEQ/L 92 MEQ/L 94 MEQ/L (98-107) (98-107) (98-107) Blood Urea Nitrogen 3 MG/DL (7-18) 1 MG/DL (7-18) 1 MG/DL (7-18) Random Glucose 116 MG/DL 110 MG/DL 123 MG/DL (74-106) (74-106) (74-106) Calcium Level 7.5 MG/DL 7.0 MG/DL 7.1 MG/DL (8.5-10.1) (8.5-10.1) (8.5-10.1) Phosphorus Level 1.3 MG/DL (2.5-4.9) Magnesium Level 0.7 MG/DL (1.5-2.5) Creatinine 0.33 MG/DL (0.50-1.00) Protein Corrected Calcium 8.3 MG/DL 8.1 MG/DL (8.5-10.1) (8.5-10.1) Total Protein 4.7 GM/DL 5.3 GM/DL (6.4-8.2) (6.4-8.2) Test 06/01/16 06/02/16 06/02/16 18:17 03:46 05:30 Hemoglobin 11.0 GM/DL 10.8 GM/DL (11.6-15.3) (11.6-15.3) Hematocrit 32.0 % 30.6 % (35.0-46.0) (35.0-46.0) Sodium Level 134 MEQ/L (136-145) Potassium Level 2.9 MEQ/L (3.5-5.1) Chloride Level 94 MEQ/L (98-107) Blood Urea Nitrogen 1 MG/DL (7-18) Creatinine 0.40 MG/DL (0.50-1.00) Random Glucose 115 MG/DL (74-106) Calcium Level 6.9 MG/DL (8.5-10.1) Protein Corrected Calcium 7.9 MG/DL (8.5-10.1) Total Protein 5.1 GM/DL (6.4-8.2) PE at Discharge GENERAL: This is a well-nourished, well-developed patient, in no apparent distress. SKIN: No rashes, warm and dry HEAD: Atraumatic. Normocephalic. EYES: Pupils equal round and reactive. Extraocular motions intact. No scleral icterus. ENT: Nose without bleeding, or drainage, Airway patent. NECK: Trachea midline. Supple CARDIOVASCULAR: Regular rate and rhythm without murmurs, gallops, or rubs. RESPIRATORY: Fair air entry bilaterally. No wheezes, rales, or rhonchi. GASTROINTESTINAL: Abdomen soft, non-tender, nondistended. Positive bowel sounds MUSCULOSKELETAL: Extremities without clubbing, cyanosis, or edema. Pedal pulses appreciated NEUROLOGICAL: Awake and alert. Moves all extremity. Normal speech.no focal neurological deficit Hospital Course 60 y/o female admitted for Acute rectal bleed, C. difficile diarrhea, Hyponatremia, Hypokalemia Elevated LFT, Generalized weakness, she has a hx of Hypertension, History of cervical and lung cancer following up with Dr. Montano DVT prophylaxis with SCD only due to GI bleed pt started IV Protonix,GI consultation, plan was for EGD and colonoscopy but pt was not compliant with optimal bowel preparation, and eventually she completely refused the procedure. Patient started on po Flagyl for c diff , with daily Potassium, BMP monitoring in replacement Also H&H monitoring liver ultrasound showing changes consistent with fatty liver, pericholecystic fluid nonspecific PT OT consulted, patient is extremely weak and debilitated She also had lower extremity edema left more than right for which she had a workup with 2-D echo, and abdominal and pelvic CT as well as duplex ultrasound which all where unremarkable, so hypoalbuminemia mostly was the reason, patient started on trial diuresing with albumin with some good response. Continued on Lasix. GI was reconsulted for persistent diarrhea and abdominal pain despite over 10 days of Flagyl, they recommended abdominal x-ray to rule out ileus which came back negative, eventually stool just started to firm up, GI recommended extra 10 days of Flagyl. Her hemoglobin was stable, we resumed PPI once daily per GI recommendation. PT OT continue to recommend rehabilitation, there was no pain sores coverage, continued efforts with PT to get patient able to go home with home health care Pt Condition on Discharge: Stable Discharge Disposition: Discharge Home Discharge Time: > 30 minutes Discharge Instructions DIET: Follow Instructions for: Heart Healthy Diet Activities you can perform: Weight Bearing as Rosa New Medications: Metronidazole (Flagyl) 500 Mg Tab 500 MG PO TID Infection #30 Ref 0 TAB Pantoprazole (Protonix) 40 Mg Tab 40 MG PO DAILY Reflux #30 Ref 0 TAB Potassium Chloride ER (K-Tab) 10 Meq Tab 10 MEQ PO DAILY Electrolyte Replacement #30 Ref 0 TAB Furosemide (Furosemide) 20 Mg Tab 40 MG PO DAILY leg edema #30 TAB Lactobacillus Acidophilus (Acidophilus/l-Sporogenes) 1 Tab Tab 1 TAB PO TID c diff #30 TAB Oyster Shell (Oyster Shell Calcium) 500 Mg Tab 500 MG PO Q12HR Calcium Supplement #30 TAB Continued Medications: Ondansetron (Zofran) 8 Mg Tab 8 MG PO TID Nausea/Vomiting Ref 0 TAB Prochlorperazine Maleate (Prochlorperazine Maleate) 10 Mg Tab 10 MG PO Q6H PRN NAUSEA OR VOMITING Ref 0 TAB Katie Mishra MD Jun 02, 2016 10:24
[2016-06-02] MEDS ORDERED: METR-1 PO (10:26)
[2016-06-02] MEDS: POTASSIUM CHLORIDE 20 MEQ CONTROLLED RELEASE TAB PO SCH ×2 (11:00→20:01)
[2016-06-02] MEDS ORDERED: POTASSIUM CHLORIDE 20 MEQ CONTROLLED RELEASE TAB PO ONE (11:00)
[2016-06-02] MEDS: CALCIUM CARBONATE 1.25 GM (CA 500 MG) TAB PO SCH ×2 (11:33→20:01)
[2016-06-02] MEDS: NS + KCL 20 MEQ INJ 1,000 ML IV SCH (11:41)
[2016-06-02 12:01] LABS: HEMATOCRIT 32.2 % (35.0-46.0); REVIEW FLAG FINAL
--- NOTE | 2016-06-02 12:56 | HHI.PR ---
Subjective Remarks Patient refused to have EGD and colonoscopy Still having diarrhea I discussed with the nurse she told me still bloody Still having hypokalemia. No abdominal pain afebrile Despite patient refused GI workup, but due to continuous diarrhea and electrolyte imbalance will continue monitoring patient, hemoglobin has been stable, tried to discuss with her again, but she still refusing Objective Vitals Vital Signs Date Time Temp Pulse Resp B/P Pulse Ox O2 Delivery O2 Flow Rate FiO2 06/02/16 11:11 98.0 84 18 145/80 96 06/02/16 07:39 97.7 80 18 121/90 97 06/02/16 04:26 98.9 74 18 135/70 98 06/02/16 00:20 98.8 74 18 134/74 97 06/01/16 20:23 98.4 82 18 134/70 97 06/01/16 16:34 97.4 89 16 113/74 96 I/O 06/01/16 06/01/16 06/01/16 06/02/16 06/02/16 06/02/16 07:00 15:00 23:00 07:00 15:00 23:00 Intake Total 800 ml 0 ml 0 ml Balance 800 ml 0 ml 0 ml Intake Oral 400 ml 0 ml 0 ml IV Total 400 ml # Voids 1 2 2 1 # Bowel Movements 2 5 3 1 Result Diagram: 06/02/16 1120 06/02/16 0530 Objective Remarks GENERAL: This is a well-nourished, well-developed patient, in no apparent distress. SKIN: No rashes, warm and dry HEAD: Atraumatic. Normocephalic. EYES: Pupils equal round and reactive. Extraocular motions intact. No scleral icterus. ENT: Nose without bleeding, or drainage, Airway patent. NECK: Trachea midline. Supple CARDIOVASCULAR: Regular rate and rhythm without murmurs, gallops, or rubs. RESPIRATORY: Fair air entry bilaterally. No wheezes, rales, or rhonchi. GASTROINTESTINAL: Abdomen soft, non-tender, nondistended. Positive bowel sounds MUSCULOSKELETAL: Extremities without clubbing, cyanosis, or edema. Pedal pulses appreciated NEUROLOGICAL: Awake and alert. Moves all extremity. Normal speech.no focal neurological deficit Procedures none A/P Problem List: (1) GI bleed ICD Code: K92.2 Status: Acute Assessment and Plan C. difficile diarrhea Acute rectal bleed Hyponatremia Hypokalemia persistent Elevated LFT Generalized weakness Hypertension History of cervical and lung cancer following up with Dr. Montano DVT prophylaxis with SCD only due to GI bleed Plan: Continue to have diarrhea with hematochezia Continue replacing potassium, repeat BMP , mag and phosphorus and replace as needed Continue IVF fluid, Flagyl Appreciate GI consultation, patient refused EGD and colonoscopy, GI signed off Monitor H&H Personally reviewed liver ultrasound showing changes consistent with fatty liver , pericholecystic fluid nonspecific PT OT Problem Qualifiers (1) GI bleed: Qualified Code: K92.2 - Gastrointestinal hemorrhage, unspecified gastrointestinal hemorrhage type Katie Mishra MD Jun 02, 2016 12:56
[2016-06-02] MEDS: metroNIDAZOLE 500 MG TAB PO SCH ×2 (14:23→22:27)
[2016-06-02 19:38] LABS: ANION GAP 9 MEQ/L (5-15); BICARBONATE 28.5 MEQ/L (21.0-32.0); BLOOD UREA NITROGEN LESS THAN 1 MG/DL (7-18); CHLORIDE 95 MEQ/L (98-107); GLOMERULAR FILTRATION RATE 145 ML/MIN (>89); POTASSIUM 3.9 MEQ/L (3.5-5.1); SODIUM (NA) 132 MEQ/L (136-145)
[2016-06-02] MEDS ORDERED: POTASSIUM CHLORIDE 25 MEQ EFFERVESCENT TAB PO ONE (19:45)
[2016-06-02] MEDS ORDERED: ACETAMINOPHEN/CODEINE 300 MG/30 MG TAB PO ONE (19:45)
[2016-06-02 19:52] LABS: CALCIUM-PROTEIN CORRECTED 7.5 MG/DL (8.5-10.1)
[2016-06-02] MEDS ORDERED: CALCIUM GLUCONATE INJ 2 GM in DEXTROSE 5% IN WATER 100ML INJ 100 ML IV ONE ×2 (20:00)
[2016-06-03 00:43] VITALS: BP 143/79; PULSE 91; RESP 16; TEMP 96.6; O2SAT 94
[2016-06-03] MEDS ORDERED: MAGNESIUM SULFATE 1 GM PREMIX 100 ML IV ONE (02:30)
[2016-06-03] MEDS ORDERED: ACETAMINOPHEN/CODEINE 300 MG/30 MG TAB PO ONE (02:30)
[2016-06-03] MEDS ORDERED: MAGNESIUM OXIDE 400 MG TAB PO ONE (02:30)
[2016-06-03] MEDS: NS + KCL 20 MEQ INJ 1,000 ML IV SCH ×3 (02:53→17:45)
[2016-06-03 04:16] VITALS: BP 149/91; PULSE 84; RESP 16; TEMP 96.4; O2SAT 98
[2016-06-03] MEDS: SODIUM CHLORIDE 0.9% FLUSH 5 ML FLUSH IVF PRN (05:11)
[2016-06-03] MEDS: PANTOPRAZOLE SODIUM 40 MG VIAL IV PUSH SCH ×2 (05:11→18:40)
[2016-06-03] MEDS: metroNIDAZOLE 500 MG TAB PO SCH ×3 (05:11→21:17)
[2016-06-03 08:00] VITALS: BP 136/92; PULSE 83; RESP 14; TEMP 98; O2SAT 98
[2016-06-03] MEDS: CALCIUM CARBONATE 1.25 GM (CA 500 MG) TAB PO SCH ×2 (09:53→21:18)
[2016-06-03] MEDS: POTASSIUM CHLORIDE 20 MEQ CONTROLLED RELEASE TAB PO SCH ×2 (09:54→21:18)
[2016-06-03] MEDS ORDERED: MAGNESIUM SULFATE 1 GM PREMIX 100 ML IV SCH (11:00)
[2016-06-03] MEDS: IBUPROFEN 400 MG TAB PO PRN ×2 (11:35→19:39)
[2016-06-03 12:00] VITALS: BP 130/88; PULSE 90; RESP 14; TEMP 97.9; O2SAT 97
[2016-06-03] MEDS: traMADol HCL 50 MG TAB PO PRN ×2 (12:48→18:40)
--- NOTE | 2016-06-03 12:55 | HHI.PR ---
Subjective Remarks Complain of left lower extremity edema and worsening swelling Afebrile, still having diarrhea about no more blood I discussed with the nurse which he confirmed Objective Vitals Vital Signs Date Time Temp Pulse Resp B/P Pulse Ox O2 Delivery O2 Flow Rate FiO2 06/03/16 12:00 97.9 90 14 130/88 97 06/03/16 08:00 98.0 83 14 136/92 98 06/03/16 04:16 96.4 84 16 149/91 98 06/03/16 00:43 96.6 91 16 143/79 94 06/02/16 23:57 98.8 74 18 135/78 97 06/02/16 19:44 98.8 95 18 134/79 98 06/02/16 15:57 97.2 80 16 137/84 99 I/O 06/02/16 06/02/16 06/02/16 06/03/16 06/03/16 06/03/16 07:00 15:00 23:00 07:00 15:00 23:00 Intake Total 0 ml 739 ml Output Total 200 ml Balance 0 ml 539 ml Intake Oral 0 ml 300 ml IV Total 439 ml Output Urine Total 200 ml # Voids 1 1 # Bowel Movements 1 1 1 Result Diagram: 06/02/16 1120 06/02/16 1802 Objective Remarks - - GENERAL: This is a well-nourished, well-developed patient, in no apparent distress. SKIN: No rashes, warm and dry HEAD: Atraumatic. Normocephalic. EYES: Pupils equal round and reactive. Extraocular motions intact. No scleral icterus. ENT: Nose without bleeding, or drainage, Airway patent. NECK: Trachea midline. Supple CARDIOVASCULAR: Regular rate and rhythm without murmurs, gallops, or rubs. RESPIRATORY: Fair air entry bilaterally. No wheezes, rales, or rhonchi. GASTROINTESTINAL: Abdomen soft, non-tender, nondistended. Positive bowel sounds MUSCULOSKELETAL: +2 pitting edema thigh high in the left LE, RE no edema or cyanosis or clubbing NEUROLOGICAL: Awake and alert. Moves all extremity. Normal speech.no focal neurological deficit Procedures none A/P Problem List: (1) GI bleed ICD Code: K92.2 Status: Acute Assessment and Plan C. difficile diarrhea Worsening left LE edema and pain Acute rectal bleed Hyponatremia Hypokalemia persistent Elevated LFT Generalized weakness Hypertension History of cervical and lung cancer following up with Dr. Montano DVT prophylaxis with SCD only due to GI bleed Plan: Check Doppler ultrasound of the left lower extremity rule out DVT. This negative will consider abdominal/pelvic CT Continue to have diarrhea but no more bleeding Continue replacing potassium, magnesium and calcium and phosphorus repeat BMP Check LFT Continue IVF fluid, Flagyl Appreciate GI consultation, patient refused EGD and colonoscopy, GI signed off Monitor H&H Personally reviewed liver ultrasound showing changes consistent with fatty liver , pericholecystic fluid nonspecific PT OT Problem Qualifiers (1) GI bleed: Qualified Code: K92.2 - Gastrointestinal hemorrhage, unspecified gastrointestinal hemorrhage type Katie Mishra MD Jun 03, 2016 12:55
[2016-06-03] MEDS ORDERED: CALCIUM GLUCONATE INJ 1 GM in SODIUM CHLORIDE 0.9% INJ 100 ML IV ONE (13:00)
[2016-06-03] MEDS: POTASSIUM PHOSPHATE/SODIUM PHOSPHATE 250 MG TAB PO SCH ×2 (13:23→21:18)
[2016-06-03 16:00] VITALS: BP 142/95; PULSE 88; RESP 16; TEMP 98.4; O2SAT 96
[2016-06-03 20:00] VITALS: BP 158/85; PULSE 85; RESP 16; TEMP 97.1; O2SAT 94
[2016-06-04] VITALS (7 sets, daily range): BP systolic 117–171; BP diastolic 72–95; PULSE 85–94; RESP 16–20; TEMP 95.4–97.6; O2SAT 92–98
[2016-06-04] MEDS: traMADol HCL 50 MG TAB PO PRN ×4 (00:40→21:04)
[2016-06-04] MEDS: IBUPROFEN 400 MG TAB PO PRN ×2 (03:41→12:02)
[2016-06-04] MEDS: NS + KCL 20 MEQ INJ 1,000 ML IV SCH ×3 (03:41→21:05)
[2016-06-04] MEDS: metroNIDAZOLE 500 MG TAB PO SCH ×3 (05:50→21:03)
[2016-06-04] MEDS: PANTOPRAZOLE SODIUM 40 MG VIAL IV PUSH SCH ×2 (05:51→16:42)
[2016-06-04] MEDS: POTASSIUM PHOSPHATE/SODIUM PHOSPHATE 250 MG TAB PO SCH ×3 (05:51→21:02)
[2016-06-04] MEDS: POTASSIUM CHLORIDE 20 MEQ CONTROLLED RELEASE TAB PO SCH ×2 (08:21→21:02)
[2016-06-04] MEDS: CALCIUM CARBONATE 1.25 GM (CA 500 MG) TAB PO SCH ×2 (08:21→21:03)
[2016-06-04 11:28] LABS: AUTOMATED NEUTROPHIL # 2.5 TH/MM3 (1.8-7.7); BASOPHIL % 0.4 % (0.0-2.0); EOSINOPHIL % 0.9 % (0.0-4.0); HEMATOCRIT 33.1 % (35.0-46.0); HEMO FLAGS DIFF FINAL; LYMPH % 5.4 % (9.0-44.0); LYMPHOCYTE # 0.2 TH/MM3 (1.0-4.8); MEAN CELL VOLUME 109.9 FL (80.0-100.0); MEAN CORPUSCULAR HEMOGLOBIN 37.5 PG (27.0-34.0); MEAN CORPUSCULAR HGB CONC 34.1 % (32.0-36.0); MONO % 8.8 % (0.0-8.0); NEUT % 84.5 % (16.0-70.0); PLATELET COUNT 135 TH/MM3 (150-450); RED BLOOD COUNT 3.01 MIL/MM3 (4.00-5.30); RED CELL DISTRIBUTION WIDTH 14.7 % (11.6-17.2); WHITE BLOOD COUNT 2.9 TH/MM3 (4.0-11.0)
[2016-06-04 11:57] LABS: ANION GAP 5 MEQ/L (5-15); BICARBONATE 29.8 MEQ/L (21.0-32.0); BLOOD UREA NITROGEN LESS THAN 1 MG/DL (7-18); CHLORIDE 96 MEQ/L (98-107); GLOMERULAR FILTRATION RATE 189 ML/MIN (>89); POTASSIUM 4.2 MEQ/L (3.5-5.1); SODIUM (NA) 131 MEQ/L (136-145)
[2016-06-04 12:15] LABS: CALCIUM-PROTEIN CORRECTED 8.3 MG/DL (8.5-10.1)
--- NOTE | 2016-06-04 13:00 | RADRPT ---
EXAM DATE/TIME: 06/04/2016 11:08 [facility] COMPARISON: No previous studies available for comparison. INDICATIONS : Left leg edema and pain. MEDICAL HISTORY : Stroke. Hypertension. Tinnitis. Melena. Arthritis. Lung cancer. SURGICAL HISTORY : Tonsillectomy. section. D&C. Chemotherapy. Right chest port. ENCOUNTER: Initial ACUITY: 1 week PAIN SCORE: 8/10 LOCATION: Left leg. TECHNIQUE: Venous ultrasound of the leg was performed from the inguinal ligament to the proximal calf. Real-dione e, color Doppler and spectral tracing, compression and augmentation techniques were used. FINDINGS: There is normal compressibility of the deep venous system from the inguinal region to the proximal ca lf. No echogenic clot is seen in the lumen of the common femoral, femoral, popliteal, and posterior tibial veins. There is a normal response of the venous system to proximal and distal augmentation an d respiration. CONCLUSION: No DVT is present within the left lower extremity. Subcutaneous edema is visualized. Darrick Hi MD on June 04, 2016 at 12:58 Board Certified Radiologist. This report was verified electronically.
[2016-06-04] MEDS ORDERED: traMADol HCL 50 MG TAB PO ONE (16:30)
--- NOTE | 2016-06-04 19:24 | HHI.PR ---
Subjective Remarks Patient seen earlier in the morning Sitting in bed, reported diarrhea is better little firmer, she had one bowel movement today, no fever, she declined EGD and colonoscopy. Left lower extremity is high thigh edema, lower extremity ultrasound was pending in the morning Objective Vitals Vital Signs Date Time Temp Pulse Resp B/P Pulse Ox O2 Delivery O2 Flow Rate FiO2 06/04/16 15:30 96.3 87 20 147/81 98 Automatic Cuff 06/04/16 11:30 97.6 90 20 165/87 97 06/04/16 08:43 140/72 06/04/16 07:30 95.4 94 20 171/88 98 06/04/16 04:20 96.4 87 16 171/90 92 06/04/16 00:00 97.0 85 16 159/95 96 06/03/16 20:00 97.1 85 16 158/85 94 I/O 06/03/16 06/03/16 06/03/16 06/04/16 06/04/16 06/04/16 06:59 14:59 22:59 06:59 14:59 22:59 Intake Total 739 ml 840 ml 500 ml 2325 ml 920 ml Output Total 200 ml 400 ml 500 ml Balance 539 ml 840 ml 100 ml 1825 ml 920 ml Intake Oral 300 ml 840 ml 500 ml 450 ml 320 ml IV Total 439 ml 1875 ml 600 ml Output Urine Total 200 ml 400 ml 500 ml # Voids 2 2 3 # Bowel Movements 1 1 3 0 2 Result Diagram: 06/04/16 1030 06/04/16 1030 Objective Remarks - - GENERAL: This is a well-nourished, well-developed patient, in no apparent distress. SKIN: No rashes, warm and dry HEAD: Atraumatic. Normocephalic. EYES: Pupils equal round and reactive. Extraocular motions intact. No scleral icterus. ENT: Nose without bleeding, or drainage, Airway patent. NECK: Trachea midline. Supple CARDIOVASCULAR: Regular rate and rhythm without murmurs, gallops, or rubs. RESPIRATORY: Fair air entry bilaterally. No wheezes, rales, or rhonchi. GASTROINTESTINAL: Abdomen soft, non-tender, nondistended. Positive bowel sounds MUSCULOSKELETAL: +2 pitting edema thigh high in the left LE, RE no edema or cyanosis or clubbing NEUROLOGICAL: Awake and alert. Moves all extremity. Normal speech.no focal neurological deficit Procedures none A/P Problem List: (1) GI bleed ICD Code: K92.2 Status: Acute Assessment and Plan C. difficile diarrhea Worsening left LE edema and pain Acute rectal bleed Hyponatremia Hypokalemia persistent Elevated LFT Generalized weakness Hypertension History of cervical and lung cancer following up with Dr. Montano DVT prophylaxis with SCD only due to GI bleed Plan: Doppler ultrasound of the left lower extremity has been done later today and was negative for DVT. Will order abdominal/pelvic CT Diarrhea slightly improved with firmer stool Continue replacing potassium, magnesium and calcium and phosphorus repeat BMP Monitor H&H hemoglobin 10.9 on 06/02 Continue IVF fluid, Flagyl Appreciate GI consultation, patient refused EGD and colonoscopy, GI signed off Personally reviewed liver ultrasound showing changes consistent with fatty liver , pericholecystic fluid nonspecific PT OT Discharge Planning When diarrhea and electrolyte imbalance improved Problem Qualifiers (1) GI bleed: Qualified Code: K92.2 - Gastrointestinal hemorrhage, unspecified gastrointestinal hemorrhage type Katie Mishra MD Jun 04, 2016 19:24
[2016-06-04] MEDS ORDERED: DIATRIZOATE MEGLUM/DIATRIZOATE SOD 9 ML CUP PO ONE (20:00)
--- NOTE | 2016-06-05 00:32 | RADRPT ---
EXAM DATE/TIME: 06/05/2016 00:06 [facility] COMPARISON: No previous studies available for comparison. INDICATIONS : Left lower extremity edema. Evaluate fluid. ORAL CONTRAST: Partial prescribed oral contrast ingested. RADIATION DOSE: 5.44 CTDIvol (mGy) MEDICAL HISTORY : Hypertension. Carcinoma, lung. SURGICAL HISTORY : section. ENCOUNTER: Initial ACUITY: 1 day PAIN SCALE: 0/10 LOCATION: abdomen TECHNIQUE: Volumetric scanning of the abdomen and pelvis was performed. Using automated exposure control and ad justment of the mA and/or kV according to patient size, radiation dose was kept as low as reasonably achievable to obtain optimal diagnostic quality images. FINDINGS: LOWER LUNGS: The visualized lower lungs are clear. Tiny pleural effusions bilaterally. LIVER: Slightly nodular without lesion. There is no dilation of the biliary tree. No calcified gallstones. Small bowel ascites. SPLEEN: Normal size without lesion. PANCREAS: Within normal limits. KIDNEYS: Normal in size and shape. There is no mass, stone, or hydronephrosis. ADRENAL GLANDS: Within normal limits. VASCULAR: There is no aortic aneurysm. BOWEL/MESENTERY: The stomach, small bowel, and colon demonstrate no acute abnormality. There is no free intraperitone al air or fluid. ABDOMINAL WALL: Within normal limits. RETROPERITONEUM: There is no lymphadenopathy. BLADDER: No wall thickening or mass. REPRODUCTIVE: Within normal limits. INGUINAL: There is no lymphadenopathy or hernia. MUSCULOSKELETAL: Diffuse anasarca. There is slight depression of the superior plate of T12. CONCLUSION: 1. Liver slightly nodular could be from early morphologic changes of cirrhosis. 2. Mild abdominal ascites and tiny bilateral pleural effusions. 3. Mild superior endplate compression fracture at T12 likely old. 4. Diffuse anasarca. Aristides Barbosa MD on June 05, 2016 at 0:26 Board Certified Radiologist. This report was verified electronically.
[2016-06-05] MEDS: traMADol HCL 50 MG TAB PO PRN ×6 (01:14→21:06)
[2016-06-05 03:35] VITALS: BP 160/89; PULSE 96; RESP 18; TEMP 97.9; O2SAT 98
[2016-06-05] MEDS: metroNIDAZOLE 500 MG TAB PO SCH ×3 (05:01→21:07)
[2016-06-05] MEDS: POTASSIUM PHOSPHATE/SODIUM PHOSPHATE 250 MG TAB PO SCH ×3 (05:01→21:06)
[2016-06-05] MEDS: PANTOPRAZOLE SODIUM 40 MG VIAL IV PUSH SCH ×2 (05:02→19:29)
[2016-06-05] MEDS: ONDANSETRON HCL 4 MG/2 ML VIAL IV PUSH PRN (05:56)
[2016-06-05 07:36] LABS: AUTOMATED NEUTROPHIL # 2.4 TH/MM3 (1.8-7.7); BASOPHIL % 0.4 % (0.0-2.0); HEMO FLAGS DIFF FINAL; LYMPH % 4.7 % (9.0-44.0); LYMPHOCYTE # 0.1 TH/MM3 (1.0-4.8); MEAN CELL VOLUME 108.5 FL (80.0-100.0); MEAN CORPUSCULAR HEMOGLOBIN 37.3 PG (27.0-34.0); MEAN CORPUSCULAR HGB CONC 34.4 % (32.0-36.0); MONO % 11.3 % (0.0-8.0); NEUT % 82.6 % (16.0-70.0); PLATELET COUNT 137 TH/MM3 (150-450); RED BLOOD COUNT 2.95 MIL/MM3 (4.00-5.30); RED CELL DISTRIBUTION WIDTH 14.6 % (11.6-17.2); WHITE BLOOD COUNT 2.9 TH/MM3 (4.0-11.0)
[2016-06-05 08:00] VITALS: BP 140/87; PULSE 99; RESP 18; TEMP 97.4; O2SAT 99
[2016-06-05 08:10] LABS: ANION GAP 8 MEQ/L (5-15); BICARBONATE 28.9 MEQ/L (21.0-32.0); BLOOD UREA NITROGEN LESS THAN 1 MG/DL (7-18); CHLORIDE 95 MEQ/L (98-107); GLOMERULAR FILTRATION RATE 235 ML/MIN (>89); POTASSIUM 3.5 MEQ/L (3.5-5.1); SODIUM (NA) 132 MEQ/L (136-145)
[2016-06-05 08:38] LABS: CALCIUM-PROTEIN CORRECTED 8.4 MG/DL (8.5-10.1)
[2016-06-05] MEDS: CALCIUM CARBONATE 1.25 GM (CA 500 MG) TAB PO SCH ×2 (08:45→21:07)
[2016-06-05] MEDS: POTASSIUM CHLORIDE 20 MEQ CONTROLLED RELEASE TAB PO SCH ×2 (08:46→21:07)
[2016-06-05] MEDS: NS + KCL 20 MEQ INJ 1,000 ML IV SCH ×2 (08:48→10:47)
--- NOTE | 2016-06-05 11:00 | HHI.PR ---
Subjective Remarks Follow up on C. difficile diarrhea, and rectal bleed , GI consulted patient refused EGD and colonoscopy, started on Flagyl for C. difficile, multiple electrolyte imbalance and dehydration started on nightly fluid, later on she developed swelling, Lasix 2 days IVP started, monitor improvement, left lower extremity ultrasound was negative, abdominal and pelvic CT showed nodular liver mostly cirrhotic changes. Today Patient stated her stool is less watery more on the soft side today No abdominal pain chest pain Objective Vitals Vital Signs Date Time Temp Pulse Resp B/P Pulse Ox O2 Delivery O2 Flow Rate FiO2 06/05/16 09:46 18 06/05/16 08:00 97.4 99 18 140/87 99 06/05/16 03:35 97.9 96 18 160/89 98 06/04/16 20:44 96.9 90 18 117/76 98 06/04/16 15:30 96.3 87 20 147/81 98 Automatic Cuff 06/04/16 11:30 97.6 90 20 165/87 97 I/O 06/04/16 06/04/16 06/04/16 06/05/16 06/05/16 06/05/16 07:00 15:00 23:00 07:00 15:00 23:00 Intake Total 2325 ml 920 ml Output Total 500 ml Balance 1825 ml 920 ml Intake Oral 450 ml 320 ml IV Total 1875 ml 600 ml Output Urine Total 500 ml # Voids 3 2 # Bowel Movements 0 2 3 Result Diagram: 06/05/16 0716 06/05/16 0723 Objective Remarks - - GENERAL: This is a well-nourished, well-developed patient, in no apparent distress. SKIN: No rashes, warm and dry HEAD: Atraumatic. Normocephalic. EYES: Pupils equal round and reactive. Extraocular motions intact. No scleral icterus. ENT: Nose without bleeding, or drainage, Airway patent. NECK: Trachea midline. Supple CARDIOVASCULAR: Regular rate and rhythm without murmurs, gallops, or rubs. RESPIRATORY: Fair air entry bilaterally. No wheezes, rales, or rhonchi. GASTROINTESTINAL: Abdomen soft, non-tender, nondistended. Positive bowel sounds MUSCULOSKELETAL: +2 pitting edema thigh high in the left LE, RE no edema or cyanosis or clubbing NEUROLOGICAL: Awake and alert. Moves all extremity. Normal speech.no focal neurological deficit Procedures none A/P Problem List: (1) GI bleed ICD Code: K92.2 Status: Acute Assessment and Plan C. difficile diarrhea Worsening left LE edema and pain Acute rectal bleed Hyponatremia, Hypokalemia persistent, hypomagnesemia and hypocalcemia Elevated LFT Generalized weakness Hypertension History of cervical and lung cancer following up with Dr. Montano DVT prophylaxis with SCD only due to GI bleed Plan: Doppler ultrasound of the left lower extremitywas negative for DVT. abdominal/ pelvic CT personally reviewed by me showed Nodular liver could be due to early cirrhotic changes, mild abdominal ascites with tiny bilateral pleural effusion, mild compression fracture T12 mostly old, diffuse anasarca DC IVF fluid, will give Lasix IV 40 mg every 12 hours 2 doses and monitor I/O, cautiously due to diarrhea, check 2-D echo Considering patient history of cervical lung cancer, and currently the nodular liver with ascites and pleural effusion, as well as the rectal bleed we may consider oncology consultation to rule out any underlying malignancy/metastasis Diarrhea started to improve with firmer stool Continue replacing potassium, magnesium and calcium and phosphorus Monitor H&H hemoglobin has been stable Continue Flagyl Appreciate GI consultation, patient refused EGD and colonoscopy, GI signed off liver ultrasound earlier showing changes consistent with fatty liver, pericholecystic fluid nonspecific PT OT Discharge Planning When diarrhea, and edema improved, consider oncology consultation if suspicion for malignancy metastasis to liver is high Problem Qualifiers (1) GI bleed: Qualified Code: K92.2 - Gastrointestinal hemorrhage, unspecified gastrointestinal hemorrhage type Katie Mishra MD Jun 05, 2016 11:00
[2016-06-05 12:00] VITALS: BP 153/85; PULSE 99; RESP 16; TEMP 97.6; O2SAT 97
[2016-06-05] MEDS: MAGNESIUM SULFATE 1 GM PREMIX 100 ML IV SCH ×2 (12:52→13:07)
[2016-06-05] MEDS: FUROSEMIDE 40 MG/4 ML VIAL IV PUSH SCH (12:53)
[2016-06-05 15:00] VITALS: BP 153/85
[2016-06-05 16:00] VITALS: BP 137/76; PULSE 96; RESP 18; TEMP 97.9; O2SAT 98
[2016-06-05 20:00] VITALS: BP 129/72; PULSE 93; RESP 16; TEMP 97.5; O2SAT 96
[2016-06-06] VITALS: BP 150/78; PULSE 89; RESP 18; TEMP 97.5; O2SAT 96
[2016-06-06] MEDS: traMADol HCL 50 MG TAB PO PRN ×7 (00:10→20:31)
[2016-06-06] MEDS: FUROSEMIDE 40 MG/4 ML VIAL IV PUSH SCH ×2 (00:10→13:32)
[2016-06-06 04:00] VITALS: BP 125/74; PULSE 94; RESP 16; TEMP 97.8; O2SAT 97
[2016-06-06] MEDS: metroNIDAZOLE 500 MG TAB PO SCH ×3 (05:13→20:31)
[2016-06-06] MEDS: POTASSIUM PHOSPHATE/SODIUM PHOSPHATE 250 MG TAB PO SCH (05:14)
[2016-06-06] MEDS: PANTOPRAZOLE SODIUM 40 MG VIAL IV PUSH SCH ×2 (05:14→17:00)
[2016-06-06 07:50] VITALS: BP 152/83; PULSE 94; RESP 20; TEMP 98.6; O2SAT 97
[2016-06-06] MEDS: CALCIUM CARBONATE 1.25 GM (CA 500 MG) TAB PO SCH ×2 (08:54→20:31)
[2016-06-06] MEDS: POTASSIUM CHLORIDE 20 MEQ CONTROLLED RELEASE TAB PO SCH ×2 (08:54→20:31)
--- NOTE | 2016-06-06 10:48 | HHI.PR ---
Subjective Remarks Follow up on C. difficile diarrhea with GI bleed, initially consulted gastroenterology palpation definitely declined GI scope, since that time hemoglobin has been stable, however her electrolytes has been always drained, she is on Flagyl for C. difficile, 2 days ago start developing lower extremity edema, and found to have small pleural effusion and ascites, ultrasound of the liver showed nodular most likely cirrhotic changes, suspecting alcohol underlying cause which is consistent with her microcytic hyperchromic anemia, despite patient denying. She does have hypoalbuminemia home she was given 2 doses of Lasix, will continue, along with monitoring her electrolytes, will check 2-D echo, and monitor BMP and BNP Also 2 days ago patient started having neutropenia with her chronic thrombocytopenia, possibly due to infection, continue monitoring for any fever patient still having diarrhea today, stated had 3 bowel movements since the morning Feeling extremely fatigued and tired, she can even move out of bed Still with worsening leg edema Objective Vitals Vital Signs Date Time Temp Pulse Resp B/P Pulse Ox O2 Delivery O2 Flow Rate FiO2 06/06/16 07:50 98.6 94 20 152/83 97 06/06/16 04:00 97.8 94 16 125/74 97 06/06/16 00:00 97.5 89 18 150/78 96 06/05/16 20:00 97.5 93 16 129/72 96 06/05/16 18:07 18 06/05/16 16:00 97.9 96 18 137/76 98 06/05/16 15:00 153/85 06/05/16 12:00 97.6 99 16 153/85 97 I/O 06/05/16 06/05/16 06/05/16 06/06/16 06/06/16 06/06/16 07:00 15:00 23:00 07:00 15:00 23:00 Intake Total 1460 ml 720 ml 780 ml Balance 1460 ml 720 ml 780 ml Intake Oral 960 ml 720 ml 780 ml IV Total 500 ml # Voids 4 2 4 1 # Bowel Movements 3 1 Result Diagram: 06/05/16 0716 06/05/16 0723 Objective Remarks - - GENERAL: This is a well-nourished, well-developed patient, in no apparent distress. SKIN: No rashes, warm and dry HEAD: Atraumatic. Normocephalic. EYES: Pupils equal round and reactive. Extraocular motions intact. No scleral icterus. ENT: Nose without bleeding, or drainage, Airway patent. NECK: Trachea midline. Supple CARDIOVASCULAR: Regular rate and rhythm without murmurs, gallops, or rubs. RESPIRATORY: Fair air entry bilaterally. No wheezes, rales, or rhonchi. GASTROINTESTINAL: Abdomen soft, non-tender, nondistended. Positive bowel sounds MUSCULOSKELETAL: +2 pitting edema thigh high in the left LE, RE no edema or cyanosis or clubbing NEUROLOGICAL: Awake and alert. Moves all extremity. Normal speech.no focal neurological deficit Procedures none A/P Problem List: (1) GI bleed ICD Code: K92.2 Status: Acute Assessment and Plan C. difficile diarrhea Acute neutropenia, possibly due to infection Worsening left LE edema Acute rectal bleed Thrombocytopenia mostly chronic possibly due to alcohol Hyponatremia, Hypokalemia persistent, hypomagnesemia and hypocalcemia Elevated LFT possibly due to cirrhosis Generalized weakness Hypertension History of cervical and lung cancer following up with Dr. Montano DVT prophylaxis with SCD only due to GI bleed Plan: Follow up on C. difficile diarrhea with GI bleed, initially consulted gastroenterology palpation definitely declined GI scope, since that time hemoglobin has been stable, however her electrolytes has been always drained, she is on Flagyl for C. difficile, 2 days ago start developing lower extremity edema, and found to have small pleural effusion and ascites, ultrasound of the liver showed nodular most likely cirrhotic changes, suspecting alcohol underlying cause which is consistent with her microcytic hyperchromic anemia, despite patient denying. She does have hypoalbuminemia home she was given 2 doses of Lasix, will continue, along with monitoring her electrolytes, will check 2-D echo, and monitor BMP and BNP Also 2 days ago patient started having neutropenia with her chronic thrombocytopenia, possibly due to infection, continue monitoring for any fever Consider reconsulting GI Doppler ultrasound of the left lower extremitywas negative for DVT. abdominal/ pelvic CT personally reviewed by me showed Nodular liver could be due to early cirrhotic changes, mild abdominal ascites with tiny bilateral pleural effusion, mild compression fracture T12 mostly old, diffuse anasarca Continue Lasix IV 40 mg every 12 hours monitor I/O, cautiously due to diarrhea , pending 2-D echo Considering patient history of cervical lung cancer, and currently the nodular liver with ascites and pleural effusion, as well as the rectal bleed we may consider oncology consultation to rule out any underlying malignancy/metastasis Continue replacing potassium, magnesium and calcium and phosphorus Monitor H&H hemoglobin has been stable Continue Flagyl Appreciate GI consultation, patient refused EGD and colonoscopy, GI signed off liver ultrasound earlier showing changes consistent with fatty liver, pericholecystic fluid nonspecific PT OT Discharge Planning Patient still sick, when clinically improved Problem Qualifiers (1) GI bleed: Qualified Code: K92.2 - Gastrointestinal hemorrhage, unspecified gastrointestinal hemorrhage type Katie Mishra MD Jun 06, 2016 10:48
[2016-06-06 11:05] VITALS: BP 136/74; PULSE 90; RESP 20; TEMP 97.6; O2SAT 96
[2016-06-06 13:00] LABS: AUTOMATED NEUTROPHIL # 3.7 TH/MM3 (1.8-7.7); BASOPHIL % 0.3 % (0.0-2.0); EOSINOPHIL % 0.7 % (0.0-4.0); HEMATOCRIT 33.9 % (35.0-46.0); HEMO FLAGS DIFF FINAL; LYMPH % 4.2 % (9.0-44.0); LYMPHOCYTE # 0.2 TH/MM3 (1.0-4.8); MEAN CELL VOLUME 109.8 FL (80.0-100.0); MEAN CORPUSCULAR HGB CONC 33.7 % (32.0-36.0); MONO % 9.1 % (0.0-8.0); NEUT % 85.7 % (16.0-70.0); PLATELET COUNT 170 TH/MM3 (150-450); RED BLOOD COUNT 3.09 MIL/MM3 (4.00-5.30); RED CELL DISTRIBUTION WIDTH 14.7 % (11.6-17.2); WHITE BLOOD COUNT 4.4 TH/MM3 (4.0-11.0)
[2016-06-06 13:22] LABS: BICARBONATE 30.1 MEQ/L (21.0-32.0); MAGNESIUM 1.1 MG/DL (1.5-2.5); POTASSIUM 3.7 MEQ/L (3.5-5.1)
[2016-06-06] MEDS: LACTOBACILLUS ACIDOPHILUS TAB PO SCH ×2 (13:32→17:00)
[2016-06-06 15:00] VITALS: BP 147/76; PULSE 87; RESP 20; TEMP 97.5; O2SAT 93
[2016-06-06] MEDS: ONDANSETRON HCL 4 MG/2 ML VIAL IV PUSH PRN (17:00)
--- NOTE | 2016-06-06 17:23 | MB ---
cc: EDWIN BUSTOS M.D. DATE OF CONSULTATION: 06/06/2016. REASON FOR CONSULTATION: Oncology was consulted to render opinion regarding a patient with cervical cancer. ATTENDING PHYSICIAN: Dr. Mishra. HISTORY OF PRESENT ILLNESS: The patient is a 60-year-old female who presented to the hospital with increased weakness. She stated she had a rectal bleed one time before presentation. She also been having diarrhea about a week prior to presentation. She became very weak and decided to come to the hospital. She denies any abdominal pain. She was subsequently found to have C. difficile colitis. She was evaluated GI but she refused EGD and colonoscopy. She has had nausea and vomiting but stated that it had resolved. She only complained of being very weak. She has not been ambulating since her admission. She denies any fever, chills, night sweats, chest pain. Denies shortness of breath. Denies any cough. Denies any dysuria or hematuria. She was diagnosed with cervical cancer around July of 2015. She stated that she received radiation and chemotherapy. She was under the care of Dr. Rodriguez at [facility]. The patient stated about two months ago she was found to have a lung mass. She did not have any biopsy. She was given a chemotherapy once about two months ago and stated she became very sick and was admitted to the hospital. The chemotherapy was put on hold. She last saw Dr. Rodriguez about ten days ago and was told that they would restart chemotherapy after the holiday. PAST MEDICAL HISTORY: 1. Cervical cancer. 2. Lung mass. 3. Hypertension. PAST MEDICAL HISTORY: 1. Tonsillectomy. 2. . 3. Port placement. FAMILY HISTORY: She has five children and three siblings, all healthy. SOCIAL HISTORY: She smokes 1-1/2 packs a day since [age] years old and decreased to ten cigarettes a day about a year ago. She used to drink vodka about five days a week and now she drinks about three days a week. She lives with her son. ALLERGIES: PENICILLIN. MEDICATIONS: 1. Lactinex. 2. Lasix. 3. Flagyl. 4. Potassium. 5. Calcium. 6. Protonix. REVIEW OF SYSTEMS: CONSTITUTIONAL: She has increased fatigue and weakness. Denies any weight loss, fever or chills. EYES: Denies any blurry vision or double vision. ENT: Denies any mouth sores or voice changes. CARDIOVASCULAR: Denies any chest pressure or palpitations. RESPIRATORY: Denies any shortness of breath or cough. GI: As above. : Denies any dysuria or hematuria. MUSCULOSKELETAL: Denies any pain. HEMATOLOGIC: Negative. ENDOCRINE: Negative. DERMATOLOGIC: Negative. PSYCHIATRIC: Negative. NEUROLOGIC: Negative. PHYSICAL EXAMINATION: VITAL SIGNS: Temperature 97.6, blood pressure 136/74, 02 saturation 96% on room air. GENERAL: She is alert and oriented times three and in no acute distress. She looks weak. HEAD, EYES, EARS, NOSE, THROAT: Atraumatic, normocephalic. Pupils equal, round, reactive to light. Extraocular muscles intact. No scleral icterus. OROPHARYNX: Dry mucosa. No lesions. No thrush. No mucositis. NECK: No thyromegaly. No palpable mass. LYMPHATIC: No palpable cervical, clavicular, axillary or inguinal lymph nodes. CARDIOVASCULAR: Regular S1 and S2. No murmur. LUNGS: Clear to auscultation. No wheezing or rhonchi. ABDOMEN: Abdomen soft and nontender. I could palpate liver or spleen. EXTREMITIES: No cyanosis or clubbing. She has 2+ lower extremity edema. No calf tenderness. BACK: No paravertebral tenderness. SKIN: No rash or petechiae. NEUROLOGIC EXAM: Generalized weakness. LABORATORY DATA: Reviewed. ASSESSMENT: 1. Cervical cancer diagnosed in May of 2016. She was treated with radiation and concurrent chemotherapy. She also stated that she had lung cancer, but from her description, it sounds like she has metastatic disease to the lung from cervical cancer. She stated that she has a lung mass but was never biopsied. She was given chemotherapy about two months ago. She only received one cycle and became very sick and was admitted to the hospital. She saw her oncologist about ten days ago and was told that she would restart chemotherapy after the holiday. At this point, the patient denies any pulmonary symptoms. She had diarrhea from the C. difficile colitis, otherwise she has no abdominal pain. CT of the abdomen and pelvis showed mildly nodular liver which could be early cirrhosis and mild ascites. CT, however, did not show clear evidence of mass or metastatic disease in the abdomen. Since she is being followed by Dr. Rodriguez at [facility] closely I do not plan to re-do all the workup as she has no new symptoms. She can follow with Dr. Rodriguez after discharge from the hospital to continue her treatment. 2. C. difficile colitis. She presented with diarrhea. She currently is on Flagyl. 3. Rectal bleed times one before her presentation. She was evaluated by gastroenterology but refused EGD and colonoscopy. She has no recurrent rectal bleeding. 4. Anasarca, likely due to her hypo-albumin state. 5. Hypertension. RECOMMENDATIONS: 1. The patient has no clear evidence of progression of disease in the abdomen or pelvis. She also has no pulmonary symptoms. I do not recommend further oncologic workup at this time. She is being followed closely by Dr. Rodriguez at [facility] and she can followup with her after discharge to continue her cancer treatment. 2. Continue supportive care. Thank you Dr. Mishra for asking me to see this patient. MD CAN Ann/JCSunil /3:12 PM /5:[address]
[2016-06-06 20:00] VITALS: BP 139/83; PULSE 96; RESP 16; TEMP 98.4; O2SAT 95
[2016-06-06] MEDS: ACETAMINOPHEN/HYDROcodone 325 MG/10 MG TAB PO PRN (21:58)
[2016-06-07] VITALS: BP 136/71; PULSE 88; RESP 16; TEMP 96.9; O2SAT 95
[2016-06-07] MEDS: ACETAMINOPHEN/HYDROcodone 325 MG/10 MG TAB PO PRN ×6 (01:56→22:05)
[2016-06-07 04:00] VITALS: BP 142/70; PULSE 77; RESP 17; TEMP 96.1; O2SAT 96
[2016-06-07] MEDS: PANTOPRAZOLE SODIUM 40 MG VIAL IV PUSH SCH (06:07)
[2016-06-07] MEDS: metroNIDAZOLE 500 MG TAB PO SCH ×3 (06:07→20:18)
[2016-06-07 08:00] VITALS: BP 133/78; PULSE 96; RESP 18; TEMP 96.1; O2SAT 96
--- NOTE | 2016-06-07 08:41 | PD.ONC.PN ---
Subjective Subjective Remarks Afebrile overnight. Pt sitting up in bed c/o bilateral leg pain. She states she is waiting for her pain pill to work. She denies SOB or chest pain. She states she only had one episode of diarrhea overnight. Objective Data Date Time Temp Pulse Resp B/P Pulse Ox O2 Delivery O2 Flow Rate FiO2 06/07/16 04:00 96.1 77 17 142/70 96 06/07/16 00:00 96.9 88 16 136/71 95 06/06/16 20:00 98.4 96 16 139/83 95 06/06/16 15:00 97.5 87 20 147/76 93 06/06/16 11:05 97.6 90 20 136/74 96 Result Diagram: 06/06/16 1219 06/06/16 1219 Laboratory Results Laboratory Tests Test 06/06/16 06/07/16 12:19 07:11 White Blood Count 4.4 TH/MM3 Red Blood Count 3.09 MIL/MM3 Hemoglobin 11.4 GM/DL Hematocrit 33.9 % Mean Corpuscular Volume 109.8 FL Mean Corpuscular Hemoglobin 37.0 PG Mean Corpuscular Hemoglobin 33.7 % Concent Red Cell Distribution Width 14.7 % Platelet Count 170 TH/MM3 Mean Platelet Volume 8.7 FL Neutrophils (%) (Auto) 85.7 % Lymphocytes (%) (Auto) 4.2 % Monocytes (%) (Auto) 9.1 % Eosinophils (%) (Auto) 0.7 % Basophils (%) (Auto) 0.3 % Neutrophils # (Auto) 3.7 TH/MM3 Lymphocytes # (Auto) 0.2 TH/MM3 Monocytes # (Auto) 0.4 TH/MM3 Eosinophils # (Auto) 0.0 TH/MM3 Basophils # (Auto) 0.0 TH/MM3 CBC Comment DIFF FINAL Differential Comment Sodium Level 130 MEQ/L Potassium Level 3.7 MEQ/L Chloride Level 90 MEQ/L Carbon Dioxide Level 30.1 MEQ/L Anion Gap 10 MEQ/L Blood Urea Nitrogen 1 MG/DL Creatinine 0.37 MG/DL Estimat Glomerular Filtration 178 ML/MIN Rate Random Glucose 107 MG/DL Calcium Level 7.8 MG/DL Phosphorus Level 3.3 MG/DL Magnesium Level 1.1 MG/DL B-Type Natriuretic Peptide 231 PG/ML 215 PG/ML Culture Results Administered Medications Medications (Trade) Dose Ordered Sig/Rachelle Route PRN Reason Start Time Stop Time Status Last Admin Dose Admin IV Flush (NS Flush) 2 ml UNSCH PRN IVF FLUSH AFTER USING IV ACCESS 05/30/16 18:00 06/03/16 05:11 Pantoprazole Sodium (Protonix Inj) 40 mg Q12H IV PUSH 05/31/16 18:00 06/07/16 06:07 Calcium Carbonate (Oscal) 500 mg Q12HR PO 06/02/16 10:15 06/06/16 20:31 Metronidazole (Flagyl) 500 mg Q8HR PO 06/02/16 14:00 06/16/16 13:59 06/07/16 06:07 Potassium Chloride (KCl) 20 meq BID PO 06/02/16 11:00 06/06/16 20:31 Ondansetron HCl (Zofran Inj) 4 mg Q8H PRN IV PUSH NAUSEA 06/04/16 21:08 06/06/16 17:00 Furosemide (Lasix Inj) 40 mg DAILY IV PUSH 06/06/16 11:00 06/08/16 09:01 06/06/16 13:32 Lactobacillus Acidophilus (Lactinex) 1 tab TID PO 06/06/16 13:00 06/06/16 17:00 Acetaminophen/ Hydrocodone Bitart ([place] 10-325 Mg) 1 tab Q4H PRN PO PAIN 6-10 06/06/16 22:00 06/07/16 06:08 Objective Remarks GENERAL: Chronically ill appearing female in no acute distress. SKIN: Warm and dry. HEAD: ALopecia. EYES: No injection or drainage. NECK: Supple, trachea midline. CARDIOVASCULAR: +S1/S2. RESPIRATORY: Lungs clear. Breathing easy and unlabored. GASTROINTESTINAL: Abdomen soft, non-tender, nondistended. EXTREMITIES: 1+ edema RLE, 2+ edema LLE. NEUROLOGICAL: No obvious focal deficit. Awake, alert, and oriented x3. Assessment/Plan Problem List: (1) Cervical cancer Status: Acute Plan: -- Followup with Dr. Rodriguez at [facility] after discharge. -- She is not having any new symptoms associated with her cancer so no new workup will be done at this time. Hx: Per pt she was diagnosed with cervical cancer in Jul 2015. She has been treated with radiation and chemotherapy by Dr. Rodriguez at [facility]. She states she also has a lung mass, but this was never biopsied. She was treated with chemotherapy for the lung mass but became very sick and was hospitalized. Per the pt, she is to followup with Dr. Rodriguez after the holidays to resume chemotherapy. (2) Diarrhea Status: Acute Plan: -- Improving -- On Flagyl 500mg po Q8H. -- On Lactinex (3) Anasarca Status: Acute Plan: -- Likely due to low albumin Assessment 60 y/o female who presents to the ER with c/o fatigue, diarrhea and blood in her stools. Plan 1. No further oncologic workup at this time. 2. Followup with Dr. Rodriguez at [facility] after discharge. 3. Supportive care. Attending Statement The exam, history, and the medical decision-making described in the above note were completed with the assistance of the mid-level provider. I reviewed and agree with the findings presented. I attest that I had a [id number] encounter with the patient on the same day, and personally performed and documented my assessment and findings in the medical record. Diarrhea has improved. No CP/SOB. No clear progression of cervical cancer. She can f/u with in [place] to continue her treatment. No other recommendation at this time. I will sign off. Thank you. Karo Monahan Jun 07, 2016 08:41 Andrés Wilson MD Jun 07, 2016 11:26
[2016-06-07] MEDS: FUROSEMIDE 40 MG/4 ML VIAL IV PUSH SCH (08:43)
[2016-06-07] MEDS: LACTOBACILLUS ACIDOPHILUS TAB PO SCH ×3 (08:44→17:55)
[2016-06-07] MEDS: CALCIUM CARBONATE 1.25 GM (CA 500 MG) TAB PO SCH ×2 (08:44→20:18)
[2016-06-07] MEDS: POTASSIUM CHLORIDE 20 MEQ CONTROLLED RELEASE TAB PO SCH ×2 (08:44→20:18)
--- NOTE | 2016-06-07 09:20 | HHI.PR ---
Subjective Remarks Follow-up for C. difficile colitis, lower extremity edema. Patient is currently doing well. Denies any chest pain, shortness of breath, fever or chills. She was having some pain in her lower extremities. However currently she reports no significant pain. Per RN report, bowel movement does not lose any more. Patient is tolerating by mouth intake pretty well. Objective Vitals Vital Signs Date Time Temp Pulse Resp B/P Pulse Ox O2 Delivery O2 Flow Rate FiO2 06/07/16 08:00 96.1 96 18 133/78 96 06/07/16 04:00 96.1 77 17 142/70 96 06/07/16 00:00 96.9 88 16 136/71 95 06/06/16 20:00 98.4 96 16 139/83 95 06/06/16 15:00 97.5 87 20 147/76 93 06/06/16 11:05 97.6 90 20 136/74 96 I/O 06/06/16 06/06/16 06/06/16 06/07/16 06/07/16 06/07/16 07:00 15:00 23:00 07:00 15:00 23:00 Intake Total 780 ml 240 ml 480 ml 480 ml Balance 780 ml 240 ml 480 ml 480 ml Intake Oral 780 ml 240 ml 480 ml 480 ml # Voids 4 5 1 3 # Bowel Movements 3 1 Result Diagram: 06/06/16 1219 06/06/16 1219 Imaging Last Impressions Lower Extremity Ultrasound 06/04/16 0000 Signed Impressions: Service Date/Time: May 11:08 - CONCLUSION: No DVT is present within the left lower extremity. Subcutaneous edema is visualized. Darrick Hi MD Abdomen/Pelvis CT 06/04/16 0000 Signed Impressions: Service Date/Time: Sunday, June 05, 2016 00:06 - CONCLUSION: 1. Liver slightly nodular could be from early morphologic changes of cirrhosis. 2. Mild abdominal ascites and tiny bilateral pleural effusions. 3. Mild superior endplate compression fracture at T12 likely old. 4. Diffuse anasarca. Aristides Barbosa MD Liver Ultrasound 05/30/16 0000 Signed Impressions: Service Date/Time: Monday, May 30, 2016 21:55 - CONCLUSION: 1. The liver is slightly echogenic which maybe due to fatty infiltration and or hepatocellular dysfunction. 2. Sludge in the gallbladder with mild pericholecystic fluid nonspecific. No definite gallstones. Shantel Pryor MD Objective Remarks GENERAL: alert, NAD. SKIN: Warm and dry. HEAD: Normocephalic. EYES: No scleral icterus. No injection or drainage. NECK: Supple, trachea midline. No JVD or lymphadenopathy. CARDIOVASCULAR: Regular rate and rhythm without murmurs, gallops, or rubs. RESPIRATORY: Breath sounds equal bilaterally. No accessory muscle use. GASTROINTESTINAL: Abdomen soft, non-tender, nondistended. MUSCULOSKELETAL: No cyanosis. 1+ edema in both lower ext. Left lower ext swelling worse than right LLE. BACK: Nontender without obvious deformity. No CVA tenderness. Procedures none A/P Problem List: (1) C. difficile colitis ICD Code: A04.7 Status: Acute (2) Hypomagnesemia ICD Code: E83.42 Status: Acute (3) GI bleed ICD Code: K92.2 Status: Acute (4) Cervical cancer ICD Code: C53.9 Status: Acute Assessment and Plan Ms. Mccauley is a 60-year-old female with a history of cervical cancer, hypertension who presented to the emergency department on 05/30/2016 due to rectal bleed. She was evaluated by GI but refused EGD and colonoscopy. She has not had any further GI bleed. She was also diagnosed with C. difficile colitis for which she has been taking Flagyl. She also has anasarca especially bilateral lower extremity edema. Doppler ultrasound of the left lower extremity was negative for any DVT. C. difficile colitis - Continue Flagyl 500 mg by mouth every 8 hours, Lactinex 1 tablet by mouth 3 times a day. Hypomagnesemia - Magnesium 1.1 on 06/06/2016. We'll replace with magnesium sulfate 2 g today patient will likely need more IV magnesium sulfate. - BMP with Mg tomorrow AM. GI bleed - patient has refused EGD and colonoscopy. No further GI bleed. Hemoglobin stable. Switch Protonix 40 mg IV every 12 hours to Protonix 40 mg BID. - Anasarca - likely due to low albumin. Echo pending - likely to be done tomorrow 06/08/2016. - History of cervical cancer - patient to continue follow-up with Dr. Rodriguez at [facility] Full code. Discussed with patient regarding DVT prophylaxis with heparin subcutaneously. Given the risk and benefit, I do recommend heparin for DVT prophylaxis. However patient refuses at this point. Problem Qualifiers (1) GI bleed: Qualified Code: K92.2 - Gastrointestinal hemorrhage, unspecified gastrointestinal hemorrhage type Peña Montero DO Jun 07, 2016 09:20
[2016-06-07 12:00] VITALS: BP 111/70; PULSE 101; RESP 18; TEMP 96.8; O2SAT 96
[2016-06-07] MEDS: MAGNESIUM SULFATE 1 GM PREMIX 100 ML IV SCH ×2 (12:48→14:24)
[2016-06-07 16:00] VITALS: BP 133/70; PULSE 86; RESP 16; TEMP 96.4; O2SAT 96
[2016-06-07 20:00] VITALS: BP 134/68; PULSE 91; RESP 17; TEMP 96.3; O2SAT 93
[2016-06-07] MEDS: PANTOPRAZOLE SOD 40 MG DELAYED RELEASE TAB PO SCH (20:18)
[2016-06-08] VITALS: BP_SYST 101; BP_SYST 145; BP_DIAS 55; BP_DIAS 70; PULSE 84; PULSE 91; RESP 16; RESP 21; TEMP 96.1; TEMP 96.5; O2SAT 94; O2SAT 98
[2016-06-08] MEDS: ACETAMINOPHEN/HYDROcodone 325 MG/10 MG TAB PO PRN ×6 (01:49→23:44)
[2016-06-08 04:00] VITALS: BP 154/70; PULSE 91; RESP 16; TEMP 96; O2SAT 94
[2016-06-08] MEDS: metroNIDAZOLE 500 MG TAB PO SCH ×3 (05:40→19:51)
[2016-06-08 07:50] VITALS: BP 148/72; PULSE 98; RESP 20; TEMP 96.8; O2SAT 94
[2016-06-08 08:28] LABS: BICARBONATE 32.4 MEQ/L (21.0-32.0); MAGNESIUM 1.3 MG/DL (1.5-2.5); POTASSIUM 3.6 MEQ/L (3.5-5.1)
[2016-06-08] MEDS: MORPHINE SULFATE 4 MG/ML INJ IV PUSH PRN ×2 (09:38→21:19)
[2016-06-08] MEDS: CALCIUM CARBONATE 1.25 GM (CA 500 MG) TAB PO SCH ×2 (09:41→19:48)
[2016-06-08] MEDS: LACTOBACILLUS ACIDOPHILUS TAB PO SCH ×3 (09:41→17:28)
[2016-06-08] MEDS: FUROSEMIDE 40 MG/4 ML VIAL IV PUSH SCH (09:41)
[2016-06-08] MEDS: ONDANSETRON HCL 4 MG/2 ML VIAL IV PUSH PRN (09:41)
[2016-06-08] MEDS: POTASSIUM CHLORIDE 20 MEQ CONTROLLED RELEASE TAB PO SCH ×2 (09:41→19:48)
[2016-06-08] MEDS: PANTOPRAZOLE SOD 40 MG DELAYED RELEASE TAB PO SCH ×2 (09:41→19:48)
[2016-06-08 11:50] VITALS: BP 121/73; PULSE 99; RESP 20; TEMP 97.3; O2SAT 91
[2016-06-08] MEDS: MAGNESIUM SULFATE 1 GM PREMIX 100 ML IV SCH ×4 (12:26→17:29)
[2016-06-08] MEDS: diphenhydrAMINE HCL 25 MG CAP PO PRN (15:32)
[2016-06-08 15:45] VITALS: BP 135/65; PULSE 86; RESP 20; TEMP 98.6; O2SAT 95
--- NOTE | 2016-06-08 16:06 | HHI.PR ---
Subjective Remarks Follow-up for C. difficile colitis, lower extremity edema. Ms. Mccauley is doing well. She denies any chest pain, fever, chills. Legs are improving. We discussed discharge plan. Patient does not want to go to rehab. Moreover, due to patient's insurance, she will likely not qualify to go to any rehab other than [facility]. She takes care of her disable son which is why she does not want to go to rehab. Objective Vitals Vital Signs Date Time Temp Pulse Resp B/P Pulse Ox O2 Delivery O2 Flow Rate FiO2 06/08/16 11:50 97.3 99 20 121/73 91 06/08/16 07:50 96.8 98 20 148/72 94 06/08/16 04:00 96.0 91 16 154/70 94 06/08/16 00:00 96.1 84 16 145/70 94 06/07/16 20:00 96.3 91 17 134/68 93 06/07/16 16:00 96.4 86 16 133/70 96 I/O 06/07/16 06/07/16 06/07/16 06/08/16 06/08/16 06/08/16 07:00 15:00 23:00 07:00 15:00 23:00 Intake Total 480 ml 920 ml 720 ml 480 ml 200 ml Balance 480 ml 920 ml 720 ml 480 ml 200 ml Intake Oral 480 ml 720 ml 720 ml 480 ml IV Total 200 ml 200 ml # Voids 3 5 1 2 # Bowel Movements 1 1 Result Diagram: 06/06/16 1219 06/08/16 0725 Imaging Last Impressions Lower Extremity Ultrasound 06/04/16 0000 Signed Impressions: Service Date/Time: May 11:08 - CONCLUSION: No DVT is present within the left lower extremity. Subcutaneous edema is visualized. Darrick Hi MD Abdomen/Pelvis CT 06/04/16 0000 Signed Impressions: Service Date/Time: Sunday, June 05, 2016 00:06 - CONCLUSION: 1. Liver slightly nodular could be from early morphologic changes of cirrhosis. 2. Mild abdominal ascites and tiny bilateral pleural effusions. 3. Mild superior endplate compression fracture at T12 likely old. 4. Diffuse anasarca. Aristides Barbosa MD Liver Ultrasound 05/30/16 0000 Signed Impressions: Service Date/Time: Monday, May 30, 2016 21:55 - CONCLUSION: 1. The liver is slightly echogenic which maybe due to fatty infiltration and or hepatocellular dysfunction. 2. Sludge in the gallbladder with mild pericholecystic fluid nonspecific. No definite gallstones. Shantel Pryor MD Objective Remarks GENERAL: alert, NAD. SKIN: Warm and dry. HEAD: Normocephalic. EYES: No scleral icterus. No injection or drainage. NECK: Supple, trachea midline. No JVD or lymphadenopathy. CARDIOVASCULAR: Regular rate and rhythm without murmurs, gallops, or rubs. RESPIRATORY: Breath sounds equal bilaterally. No accessory muscle use. GASTROINTESTINAL: Abdomen soft, non-tender, nondistended. MUSCULOSKELETAL: No cyanosis. 1+ edema in both lower ext. Left lower ext swelling worse than right LLE. BACK: Nontender without obvious deformity. No CVA tenderness. Procedures none A/P Problem List: (1) C. difficile colitis ICD Code: A04.7 Status: Acute (2) Hypomagnesemia ICD Code: E83.42 Status: Acute (3) GI bleed ICD Code: K92.2 Status: Acute (4) Cervical cancer ICD Code: C53.9 Status: Acute Assessment and Plan Ms. Mccauley is a 60-year-old female with a history of cervical cancer, hypertension who presented to the emergency department on 05/30/2016 due to rectal bleed. She was evaluated by GI but refused EGD and colonoscopy. She has not had any further GI bleed. She was also diagnosed with C. difficile colitis for which she has been taking Flagyl. She also has anasarca especially bilateral lower extremity edema. Doppler ultrasound of the left lower extremity was negative for any DVT. C. difficile colitis - Continue Flagyl 500 mg by mouth every 8 hours, Lactinex 1 tablet by mouth 3 times a day. Hypomagnesemia - Magnesium 1.3 on 06/08/2016. - BMP --> K+ 3.6, Na 131. will replaceMg with IV Magnesium sulfate IV. GI bleed - patient has refused EGD and colonoscopy. No further GI bleed. Hemoglobin stable. Switch Protonix 40 mg IV every 12 hours to Protonix 40 mg BID. - Anasarca - likely due to low albumin. Echo pending - likely to be done tomorrow 06/08/2016. - History of cervical cancer - patient to continue follow-up with Dr. Rodriguez at [facility] Full code. On 06/07/2016, discussed with patient regarding DVT prophylaxis with heparin subcutaneously. Given the risk and benefit, I do recommend heparin for DVT prophylaxis. However patient refuses at this point. Problem Qualifiers (1) GI bleed: Qualified Code: K92.2 - Gastrointestinal hemorrhage, unspecified gastrointestinal hemorrhage type Peña Montero DO Jun 08, 2016 4:06 pm
--- NOTE | 2016-06-08 17:09 | EC ---
Study Study Date:06/08/2016 STUDY CONCLUSIONS SUMMARY - Left ventricle: The cavity size was normal. Wall thickness was normal. Systolic function was normal. The estimated ejection fraction was in the range of 55% to 60%. Wall motion was normal; there were no regional wall motion abnormalities. - Mitral valve: Mild regurgitation. - Tricuspid valve: Mild regurgitation. If LV function is below 40, please consider prescribing an ACEI or ARB or document rationale for non-use. PROCEDURE DATA STUDY STATUS: Elective. Procedure: Transthoracic echocardiography. Image quality was good. Scanning was performed from the parasternal, apical, and subcostal acoustic windows. Study completion: The patient tolerated the procedure well. Transthoracic echocardiography. M-mode, complete 2D, complete spectral Doppler, and color Doppler. Patient status: Inpatient. CARDIAC ANATOMY LEFT VENTRICLE: The cavity size was normal. Wall thickness was normal. Systolic function was normal. The estimated ejection fraction was in the range of 55% to 60%. Wall motion was normal; there were no regional wall motion abnormalities. AORTIC VALVE: Trileaflet; normal thickness leaflets. Doppler: Transvalvular velocity was within the normal range. There was no stenosis. No regurgitation. AORTA: Aortic root: The aortic root was normal in size. MITRAL VALVE: Structurally normal valve. Doppler: Transvalvular velocity was within the normal range. There was no evidence for stenosis. Mild regurgitation. LEFT ATRIUM: The atrium was normal in size. RIGHT VENTRICLE: The cavity size was normal. Wall thickness was normal. PULMONIC VALVE: Doppler: Transvalvular velocity was within the normal range. There was no evidence for stenosis. No regurgitation. TRICUSPID VALVE: Structurally normal valve. Doppler: Transvalvular velocity was within the normal range. Mild regurgitation. PULMONARY ARTERY: The main pulmonary artery was normal-sized. Systolic pressure was within the normal range. RIGHT ATRIUM: The atrium was normal in size. PERICARDIUM: There was no pericardial effusion. SYSTEMIC VEINS: Inferior vena cava: The vessel was normal in size. BASIC MEASUREMENTS ADULT NORMAL Left ventricle LV internal dimension, ED, chordal level, 44.9 mm 43-52 PLAX LV internal dimension, ES, chordal level, 30.3 mm 23-38 PLAX Fractional shortening, chordal level, PLAX 33 % >29 LV posterior wall thickness, ED 8.41 mm IVS/LVPW ratio, ED 1.17 <1.3 Ventricular septum Septal thickness, ED 9.87 mm Aortic valve Leaflet separation 22 mm 15-26 Right ventricle RV internal dimension, ED, PLAX 23.4 mm 19-38 BASIC MEASUREMENTS ADULT NORMAL Aortic valve Leaflet separation 22 mm 15-26 Aorta Root diameter, ED 32 mm 20-37 Left atrium Anterior-posterior dimension, ES 35 mm 19-40 LA/aortic root ratio 1.09 LEGEND: Mean values are shown as u=mean value. Asterisk (*) diego values outside specified normal range. Prepared and signed by Delfino Dominguez [id number]
[2016-06-08 20:00] VITALS: BP 137/68; PULSE 86; RESP 18; TEMP 96.7; O2SAT 95
[2016-06-09] VITALS: BP 128/59; PULSE 86; RESP 16; TEMP 96.8; O2SAT 95
[2016-06-09] MEDS: MORPHINE SULFATE 4 MG/ML INJ IV PUSH PRN ×4 (03:02→19:28)
[2016-06-09 04:00] VITALS: BP 136/65; PULSE 86; RESP 18; TEMP 96.8; O2SAT 93
[2016-06-09] MEDS: ACETAMINOPHEN/HYDROcodone 325 MG/10 MG TAB PO PRN ×4 (06:32→18:37)
[2016-06-09] MEDS: metroNIDAZOLE 500 MG TAB PO SCH ×3 (06:32→19:50)
[2016-06-09 08:00] VITALS: BP 129/70; PULSE 76; RESP 16; TEMP 97.6; O2SAT 95
[2016-06-09] MEDS: LACTOBACILLUS ACIDOPHILUS TAB PO SCH ×3 (08:40→18:36)
[2016-06-09] MEDS: PANTOPRAZOLE SOD 40 MG DELAYED RELEASE TAB PO SCH ×2 (08:40→19:50)
[2016-06-09] MEDS: POTASSIUM CHLORIDE 20 MEQ CONTROLLED RELEASE TAB PO SCH ×2 (08:40→19:50)
[2016-06-09] MEDS: CALCIUM CARBONATE 1.25 GM (CA 500 MG) TAB PO SCH ×2 (08:40→19:50)
[2016-06-09 12:00] VITALS: BP 124/76; PULSE 82; RESP 16; TEMP 96.3; O2SAT 96
[2016-06-09] MEDS: diphenhydrAMINE HCL 25 MG CAP PO PRN (14:57)
[2016-06-09 16:00] VITALS: BP 121/72; PULSE 78; RESP 16; TEMP 97.7; O2SAT 95
--- NOTE | 2016-06-09 18:23 | HHI.PR ---
Subjective Remarks Follow-up for C. difficile colitis, lower extremity edema. Ms. Mccauley is doing well. Denies any chest pain, SOB, fever, chills. She does complain of a long standing problem with her dysphagia. When she eats, she feels like her food is getting stuck in her throat. Objective Vitals Vital Signs Date Time Temp Pulse Resp B/P Pulse Ox O2 Delivery O2 Flow Rate FiO2 06/09/16 16:00 97.7 78 16 121/72 95 06/09/16 12:00 96.3 82 16 124/76 96 06/09/16 08:00 97.6 76 16 129/70 95 06/09/16 04:00 96.8 86 18 136/65 93 06/09/16 00:00 96.8 86 16 128/59 95 06/08/16 20:00 96.7 86 18 137/68 95 I/O 06/08/16 06/08/16 06/08/16 06/09/16 06/09/16 06/09/16 06:59 14:59 22:59 06:59 14:59 22:59 Intake Total 480 ml 240 ml 440 ml 480 ml Balance 480 ml 240 ml 440 ml 480 ml Intake Oral 480 ml 240 ml 240 ml 480 ml IV Total 200 ml # Voids 2 8 1 2 # Bowel Movements 0 Result Diagram: 06/06/16 1219 06/08/16 0725 Imaging Last Impressions Lower Extremity Ultrasound 06/04/16 0000 Signed Impressions: Service Date/Time: May 11:08 - CONCLUSION: No DVT is present within the left lower extremity. Subcutaneous edema is visualized. Darrick Hi MD Abdomen/Pelvis CT 06/04/16 0000 Signed Impressions: Service Date/Time: Sunday, June 05, 2016 00:06 - CONCLUSION: 1. Liver slightly nodular could be from early morphologic changes of cirrhosis. 2. Mild abdominal ascites and tiny bilateral pleural effusions. 3. Mild superior endplate compression fracture at T12 likely old. 4. Diffuse anasarca. Aristides Barbosa MD Liver Ultrasound 05/30/16 0000 Signed Impressions: Service Date/Time: Monday, May 30, 2016 21:55 - CONCLUSION: 1. The liver is slightly echogenic which maybe due to fatty infiltration and or hepatocellular dysfunction. 2. Sludge in the gallbladder with mild pericholecystic fluid nonspecific. No definite gallstones. Shantel Pryor MD Objective Remarks GENERAL: alert, NAD. SKIN: Warm and dry. HEAD: Normocephalic. EYES: No scleral icterus. No injection or drainage. NECK: Supple, trachea midline. No JVD or lymphadenopathy. CARDIOVASCULAR: Regular rate and rhythm without murmurs, gallops, or rubs. RESPIRATORY: Breath sounds equal bilaterally. No accessory muscle use. GASTROINTESTINAL: Abdomen soft, non-tender, nondistended. MUSCULOSKELETAL: No cyanosis. 1+ edema in both lower ext. Left lower ext swelling worse than right LLE. BACK: Nontender without obvious deformity. No CVA tenderness. Procedures Echo 06/08/2016 - Left ventricle: The cavity size was normal. Wall thickness was normal. Systolic function was normal. The estimated ejection fraction was in the range of 55% to 60%. Wall motion was normal; there were no regional wall motion abnormalities. - Mitral valve: Mild regurgitation. - Tricuspid valve: Mild regurgitation. A/P Problem List: (1) C. difficile colitis ICD Code: A04.7 Status: Acute (2) Hypomagnesemia ICD Code: E83.42 Status: Acute (3) GI bleed ICD Code: K92.2 Status: Acute (4) Cervical cancer ICD Code: C53.9 Status: Acute Assessment and Plan Ms. Mccauley is a 60-year-old female with a history of cervical cancer, hypertension who presented to the emergency department on 05/30/2016 due to rectal bleed. She was evaluated by GI but refused EGD and colonoscopy. She has not had any further GI bleed. She was also diagnosed with C. difficile colitis for which she has been taking Flagyl. She also has anasarca especially bilateral lower extremity edema. Doppler ultrasound of the left lower extremity was negative for any DVT. C. difficile colitis - Continue Flagyl 500 mg by mouth every 8 hours, Lactinex 1 tablet by mouth 3 times a day. Hypomagnesemia - Magnesium 1.3 on 06/08/2016. - BMP --> K+ 3.6, Na 131. Replaced Mg with IV Magnesium sulfate IV. GI bleed - patient has refused EGD and colonoscopy. No further GI bleed. Hemoglobin stable. Switched Protonix 40 mg IV every 12 hours to Protonix 40 mg BID. - Dysphagia - will consult Speech for swallow eval. If needed, we can obtain Modified barium swallow study and then GI consult. - Anasarca - likely due to low albumin. Echo done --> EF 55-60%. Essentially unremarkable Echo. - History of cervical cancer - patient to continue follow-up with Dr. Rodriguez at [facility] Full code. On 06/07/2016, discussed with patient regarding DVT prophylaxis with heparin subcutaneously. Given the risk and benefit, I do recommend heparin for DVT prophylaxis. However patient refuses at this point. Discharge plan: [facility] is evaluating patient. Problem Qualifiers (1) GI bleed: Qualified Code: K92.2 - Gastrointestinal hemorrhage, unspecified gastrointestinal hemorrhage type Peña Montero DO Jun 09, 2016 18:22
[2016-06-09 20:00] VITALS: BP 144/78; PULSE 86; RESP 18; TEMP 96.6; O2SAT 99
[2016-06-10] VITALS: BP 135/87; PULSE 90; RESP 18; TEMP 96.3; O2SAT 92
[2016-06-10] MEDS: ACETAMINOPHEN/HYDROcodone 325 MG/10 MG TAB PO PRN ×5 (00:23→23:15)
[2016-06-10] MEDS: MORPHINE SULFATE 4 MG/ML INJ IV PUSH PRN ×6 (02:37→22:31)
[2016-06-10 04:00] VITALS: BP 113/57; PULSE 78; RESP 18; TEMP 96.5; O2SAT 96
[2016-06-10] MEDS: ACETAMINOPHEN/HYDROcodone 325 MG/5 MG TAB PO PRN ×2 (04:41→20:46)
[2016-06-10] MEDS: metroNIDAZOLE 500 MG TAB PO SCH ×3 (04:41→20:47)
[2016-06-10 08:00] VITALS: BP 126/73; PULSE 85; RESP 18; TEMP 97.4; O2SAT 94
[2016-06-10] MEDS: LACTOBACILLUS ACIDOPHILUS TAB PO SCH ×3 (08:26→18:14)
[2016-06-10] MEDS: PANTOPRAZOLE SOD 40 MG DELAYED RELEASE TAB PO SCH ×2 (08:27→20:47)
[2016-06-10] MEDS: POTASSIUM CHLORIDE 20 MEQ CONTROLLED RELEASE TAB PO SCH ×2 (08:27→20:47)
[2016-06-10] MEDS: CALCIUM CARBONATE 1.25 GM (CA 500 MG) TAB PO SCH ×2 (08:27→20:47)
--- NOTE | 2016-06-10 09:20 | HHI.PR ---
Subjective Remarks Follow-up for C. difficile colitis, lower extremity edema. Ms. Mccauley is doing well. Denies any acute concerns. Objective Vitals Vital Signs Date Time Temp Pulse Resp B/P Pulse Ox O2 Delivery O2 Flow Rate FiO2 06/10/16 04:00 96.5 78 18 113/57 96 06/10/16 00:00 96.3 90 18 135/87 92 06/09/16 20:00 96.6 86 18 144/78 99 06/09/16 16:00 97.7 78 16 121/72 95 06/09/16 12:00 96.3 82 16 124/76 96 I/O 06/09/16 06/09/16 06/09/16 06/10/16 06/10/16 06/10/16 07:00 15:00 23:00 07:00 15:00 23:00 Intake Total 480 ml 720 ml 480 ml 550 ml Balance 480 ml 720 ml 480 ml 550 ml Intake Oral 480 ml 720 ml 480 ml 550 ml # Voids 2 2 2 1 Result Diagram: 06/06/16 1219 06/08/16 0725 Objective Remarks GENERAL: alert, NAD. SKIN: Warm and dry. HEAD: Normocephalic. EYES: No scleral icterus. No injection or drainage. NECK: Supple, trachea midline. No JVD or lymphadenopathy. CARDIOVASCULAR: Regular rate and rhythm without murmurs, gallops, or rubs. RESPIRATORY: Breath sounds equal bilaterally. No accessory muscle use. GASTROINTESTINAL: Abdomen soft, non-tender, nondistended. MUSCULOSKELETAL: No cyanosis. 1+ edema in both lower ext. Left lower ext swelling worse than right LLE. BACK: Nontender without obvious deformity. No CVA tenderness. Procedures Echo 06/08/2016 - Left ventricle: The cavity size was normal. Wall thickness was normal. Systolic function was normal. The estimated ejection fraction was in the range of 55% to 60%. Wall motion was normal; there were no regional wall motion abnormalities. - Mitral valve: Mild regurgitation. - Tricuspid valve: Mild regurgitation. A/P Problem List: (1) C. difficile colitis ICD Code: A04.7 Status: Acute (2) Hypomagnesemia ICD Code: E83.42 Status: Acute (3) GI bleed ICD Code: K92.2 Status: Acute (4) Cervical cancer ICD Code: C53.9 Status: Acute Assessment and Plan Ms. Mccauley is a 60-year-old female with a history of cervical cancer, hypertension who presented to the emergency department on 05/30/2016 due to rectal bleed. She was evaluated by GI but refused EGD and colonoscopy. She has not had any further GI bleed. She was also diagnosed with C. difficile colitis for which she has been taking Flagyl. She also has anasarca especially bilateral lower extremity edema. Doppler ultrasound of the left lower extremity was negative for any DVT. C. difficile colitis - Continue Flagyl 500 mg by mouth every 8 hours, Lactinex 1 tablet by mouth 3 times a day. Hypomagnesemia - Magnesium 1.3 on 06/08/2016. - BMP --> K+ 3.6, Na 131. Replaced Mg with IV Magnesium sulfate IV. GI bleed - patient has refused EGD and colonoscopy. No further GI bleed. Hemoglobin stable. Switched Protonix 40 mg IV every 12 hours to Protonix 40 mg BID. - Dysphagia - will consult Speech for swallow eval. If needed, we can obtain Modified barium swallow study and then GI consult. - Anasarca - likely due to low albumin. Echo done --> EF 55-60%. Essentially unremarkable Echo. - History of cervical cancer - patient to continue follow-up with Dr. Rodriguez at [facility] Full code. On 06/07/2016, discussed with patient regarding DVT prophylaxis with heparin subcutaneously. Given the risk and benefit, I do recommend heparin for DVT prophylaxis. However patient refuses at this point. Discharge plan: [facility] is evaluating patient. If [facility] accepts patient, we will discharge her. Otherwise discharge would be somewhat complicated. Problem Qualifiers (1) GI bleed: Qualified Code: K92.2 - Gastrointestinal hemorrhage, unspecified gastrointestinal hemorrhage type Peña Montero DO Jun 10, 2016 9:20 am
[2016-06-10 12:00] VITALS: BP 130/76; PULSE 87; RESP 18; TEMP 97.3; O2SAT 93
[2016-06-10] MEDS: diphenhydrAMINE HCL 25 MG CAP PO PRN (12:13)
[2016-06-10 16:00] VITALS: BP 147/72; PULSE 96; RESP 16; TEMP 97.3; O2SAT 95
[2016-06-10 20:00] VITALS: BP 137/64; PULSE 97; RESP 18; TEMP 97.8; O2SAT 96
[2016-06-11] VITALS: BP 132/76; PULSE 90; RESP 18; TEMP 96.3; O2SAT 96
[2016-06-11] MEDS: MORPHINE SULFATE 4 MG/ML INJ IV PUSH PRN ×6 (01:54→23:40)
[2016-06-11 04:00] VITALS: BP 133/65; PULSE 91; RESP 18; TEMP 96.7; O2SAT 96
[2016-06-11] MEDS: metroNIDAZOLE 500 MG TAB PO SCH ×3 (05:08→22:15)
[2016-06-11] MEDS: ONDANSETRON HCL 4 MG/2 ML VIAL IV PUSH PRN (05:13)
[2016-06-11] MEDS: ACETAMINOPHEN/HYDROcodone 325 MG/10 MG TAB PO PRN ×4 (07:18→22:19)
[2016-06-11 08:00] VITALS: BP 147/82; PULSE 93; RESP 16; TEMP 96.1; O2SAT 97
[2016-06-11] MEDS: PANTOPRAZOLE SOD 40 MG DELAYED RELEASE TAB PO SCH ×2 (08:49→20:09)
[2016-06-11] MEDS: CALCIUM CARBONATE 1.25 GM (CA 500 MG) TAB PO SCH ×2 (08:49→20:10)
[2016-06-11] MEDS: POTASSIUM CHLORIDE 20 MEQ CONTROLLED RELEASE TAB PO SCH (08:49)
[2016-06-11] MEDS: LACTOBACILLUS ACIDOPHILUS TAB PO SCH ×3 (08:50→18:26)
[2016-06-11] MEDS: diphenhydrAMINE HCL 25 MG CAP PO PRN ×2 (11:47→20:09)
[2016-06-11 12:00] VITALS: BP 156/82; PULSE 82; RESP 16; TEMP 96.8; O2SAT 98
--- NOTE | 2016-06-11 13:23 | HHI.PR ---
Subjective Remarks Follow up visit CD[facility]. Pt. seen today. C/o "itching" BLE. Noted scratching with fingernails. Discuss plan for placement. Pt. is adamant staying in the hospital. Will have case management input. Pt. denies pain/ discomfort for now , denies c/p, n/v, fevers, chills. Objective Vitals Vital Signs Date Time Temp Pulse Resp B/P Pulse Ox O2 Delivery O2 Flow Rate FiO2 06/11/16 08:00 96.1 93 16 147/82 97 06/11/16 05:17 18 06/11/16 04:00 96.7 91 18 133/65 96 06/11/16 00:15 18 06/11/16 00:00 96.3 90 18 132/76 96 06/10/16 21:46 18 06/10/16 20:00 97.8 97 18 137/64 96 06/10/16 16:00 97.3 96 16 147/72 95 I/O 06/10/16 06/10/16 06/10/16 06/11/16 06/11/16 06/11/16 07:00 15:00 23:00 07:00 15:00 23:00 Intake Total 550 ml 1080 ml 480 ml 200 ml Balance 550 ml 1080 ml 480 ml 200 ml Intake Oral 550 ml 1080 ml 480 ml 200 ml # Voids 1 2 1 2 Result Diagram: 06/08/16 0725 Imaging Last Impressions Lower Extremity Ultrasound 06/04/16 0000 Signed Impressions: Service Date/Time: May 11:08 - CONCLUSION: No DVT is present within the left lower extremity. Subcutaneous edema is visualized. Darrick Hi MD Abdomen/Pelvis CT 06/04/16 0000 Signed Impressions: Service Date/Time: Sunday, June 05, 2016 00:06 - CONCLUSION: 1. Liver slightly nodular could be from early morphologic changes of cirrhosis. 2. Mild abdominal ascites and tiny bilateral pleural effusions. 3. Mild superior endplate compression fracture at T12 likely old. 4. Diffuse anasarca. Aristides Barbosa MD Liver Ultrasound 05/30/16 0000 Signed Impressions: Service Date/Time: Monday, May 30, 2016 21:55 - CONCLUSION: 1. The liver is slightly echogenic which maybe due to fatty infiltration and or hepatocellular dysfunction. 2. Sludge in the gallbladder with mild pericholecystic fluid nonspecific. No definite gallstones. Shantel Pryor MD Objective Remarks GENERAL: alert, NAD. SKIN: Warm and dry. Dermatitis, erythematous macular rash BLE. HEAD: Normocephalic. EYES: No scleral icterus. No injection or drainage. NECK: Supple, trachea midline. No JVD or lymphadenopathy. CARDIOVASCULAR: Regular rate and rhythm without murmurs, gallops, or rubs. Rt SC port in place, RESPIRATORY: Breath sounds equal bilaterally. No accessory muscle use. GASTROINTESTINAL: Abdomen soft, non-tender, nondistended. MUSCULOSKELETAL: No cyanosis. 1+ edema in both lower ext. Left lower ext swelling worse than right LLE. BACK: Nontender without obvious deformity. No CVA tenderness. Procedures Echo 06/08/2016 - Left ventricle: The cavity size was normal. Wall thickness was normal. Systolic function was normal. The estimated ejection fraction was in the range of 55% to 60%. Wall motion was normal; there were no regional wall motion abnormalities. - Mitral valve: Mild regurgitation. - Tricuspid valve: Mild regurgitation. A/P Problem List: (1) C. difficile colitis ICD Code: A04.7 Status: Acute (2) Hypomagnesemia ICD Code: E83.42 Status: Acute (3) GI bleed ICD Code: K92.2 Status: Acute (4) Cervical cancer ICD Code: C53.9 Status: Acute Assessment and Plan Ms. Mccauley is a 60-year-old female with a history of cervical cancer, hypertension who presented to the emergency department on 05/30/2016 due to rectal bleed. She was evaluated by GI but refused EGD and colonoscopy. She has not had any further GI bleed. She was also diagnosed with C. difficile colitis for which she has been taking Flagyl. She also has anasarca especially bilateral lower extremity edema. Doppler ultrasound of the left lower extremity was negative for any DVT. C. difficile colitis - Continue Flagyl 500 mg by mouth every 8 hours, Lactinex 1 tablet by mouth 3 times a day. Hypomagnesemia - Magnesium 1.3 on 06/08/2016. - BMP --> K+ 3.6, Na 131. Replaced Mg with IV Magnesium sulfate IV. GI bleed - patient has refused EGD and colonoscopy. No further GI bleed. Hemoglobin stable. Switched Protonix 40 mg IV every 12 hours to Protonix 40 mg BID. - Dysphagia - will consult Speech for swallow eval. If needed, we can obtain Modified barium swallow study and then GI consult. - Anasarca - likely due to low albumin. Echo done --> EF 55-60%. Essentially unremarkable Echo. - History of cervical cancer - patient to continue follow-up with Dr. Rodriguez at [facility] - Pruritis/ Uticaria - Dermatitis noted. Benadryl PRN. Hydrocortisone cream BID. Discussed with patient avoid using her nails scratching. Full code. On 06/07/2016, discussed with patient regarding DVT prophylaxis with heparin subcutaneously. Given the risk and benefit, I do recommend heparin for DVT prophylaxis. However patient refuses at this point. Discharge plan: [facility] is evaluated patient and declined. Will have case management arrange transfer to [place] [facility] if possible. Written by Kadie Peters, acting as scribe for Dr. Montero on 06/11/16 at 13:11. The documentation accurately reflects the work performed [id number] by me on at 13:11. Discharge Planning Barriers for DC discussed with case management. Possible transfer to [place] [facility]. Problem Qualifiers (1) GI bleed: Qualified Code: K92.2 - Gastrointestinal hemorrhage, unspecified gastrointestinal hemorrhage type Kadie Nieves Jun 11, 2016 13:23 Peña Montero DO Jun 11, 2016 23:08
[2016-06-11] MEDS: HYDROCORTISONE 1% CREAM 30 GM TOPICAL SCH ×2 (14:25→22:16)
[2016-06-11 16:39] VITALS: BP 132/75; PULSE 89; RESP 16; TEMP 96.2; O2SAT 99
[2016-06-11 20:00] VITALS: BP 167/75; PULSE 96; RESP 17; TEMP 97.1; O2SAT 98
[2016-06-11] MEDS: POTASSIUM CHLORIDE 10 MEQ CONTROLLED RELEASE TAB PO SCH (20:10)
[2016-06-11] MEDS: FUROSEMIDE 20 MG TAB PO SCH (20:23)
[2016-06-12] VITALS: BP 138/73; PULSE 95; RESP 16; TEMP 96.4; O2SAT 97
[2016-06-12] MEDS: ACETAMINOPHEN/HYDROcodone 325 MG/10 MG TAB PO PRN ×4 (03:47→22:17)
[2016-06-12] MEDS: diphenhydrAMINE HCL 25 MG CAP PO PRN ×2 (03:49→19:40)
[2016-06-12 04:00] VITALS: BP 131/67; PULSE 95; RESP 16; TEMP 97.6; O2SAT 94
[2016-06-12] MEDS: MORPHINE SULFATE 4 MG/ML INJ IV PUSH PRN ×3 (06:40→19:40)
[2016-06-12] MEDS: metroNIDAZOLE 500 MG TAB PO SCH ×3 (06:44→22:17)
[2016-06-12 08:00] VITALS: BP 124/80; PULSE 97; RESP 16; TEMP 96.9; O2SAT 97
[2016-06-12] MEDS: HYDROCORTISONE 1% CREAM 30 GM TOPICAL SCH ×2 (09:00→21:00)
[2016-06-12] MEDS: POTASSIUM CHLORIDE 10 MEQ CONTROLLED RELEASE TAB PO SCH ×2 (10:30→19:41)
[2016-06-12] MEDS: FUROSEMIDE 20 MG TAB PO SCH (10:30)
[2016-06-12] MEDS: PANTOPRAZOLE SOD 40 MG DELAYED RELEASE TAB PO SCH ×2 (10:30→19:41)
[2016-06-12] MEDS: CALCIUM CARBONATE 1.25 GM (CA 500 MG) TAB PO SCH ×2 (10:30→19:41)
[2016-06-12] MEDS: LACTOBACILLUS ACIDOPHILUS TAB PO SCH ×3 (10:30→17:29)
[2016-06-12 12:00] VITALS: BP 144/67; PULSE 96; RESP 16; TEMP 97.5; O2SAT 93
[2016-06-12 16:00] VITALS: BP 138/70; PULSE 96; RESP 16; TEMP 97.7; O2SAT 95
--- NOTE | 2016-06-12 16:28 | HHI.PR ---
Subjective Remarks Follow-up for C. difficile colitis, lower extremity edema. Ms. Mccauley is doing well. Tolerating diet well. No acute concerns. [facility] declined. Patient is waiting to get strength back so that she can be discharged home. Per CM, no realistic option to discharge patient to SNF. Objective Vitals Vital Signs Date Time Temp Pulse Resp B/P Pulse Ox O2 Delivery O2 Flow Rate FiO2 06/12/16 08:00 96.9 97 16 124/80 97 06/12/16 07:02 20 06/12/16 05:40 18 06/12/16 04:00 97.6 95 16 131/67 94 06/12/16 00:00 96.4 95 16 138/73 97 06/11/16 20:00 97.1 96 17 167/75 98 06/11/16 16:39 96.2 89 16 132/75 99 I/O 06/11/16 06/11/16 06/11/16 06/12/16 06/12/16 06/12/16 07:00 15:00 23:00 07:00 15:00 23:00 Intake Total 200 ml 480 ml 240 ml 240 ml Output Total 0 ml Balance 200 ml 480 ml 240 ml 240 ml Intake Oral 200 ml 480 ml 240 ml 240 ml Output Urine Total 0 ml # Voids 2 1 1 1 # Bowel Movements 1 1 0 Result Diagram: 06/08/16 0725 Objective Remarks GENERAL: alert, NAD. SKIN: Warm and dry. HEAD: Normocephalic. EYES: No scleral icterus. No injection or drainage. NECK: Supple, trachea midline. No JVD or lymphadenopathy. CARDIOVASCULAR: Regular rate and rhythm without murmurs, gallops, or rubs. RESPIRATORY: Breath sounds equal bilaterally. No accessory muscle use. GASTROINTESTINAL: Abdomen soft, non-tender, nondistended. MUSCULOSKELETAL: No cyanosis. 1+ edema in both lower ext. Left lower ext swelling worse than right LLE. BACK: Nontender without obvious deformity. No CVA tenderness. Procedures Echo 06/08/2016 - Left ventricle: The cavity size was normal. Wall thickness was normal. Systolic function was normal. The estimated ejection fraction was in the range of 55% to 60%. Wall motion was normal; there were no regional wall motion abnormalities. - Mitral valve: Mild regurgitation. - Tricuspid valve: Mild regurgitation. A/P Problem List: (1) CLinnette difficile colitis ICD Code: A04.7 Status: Acute (2) Hypomagnesemia ICD Code: E83.42 Status: Acute (3) GI bleed ICD Code: K92.2 Status: Acute (4) Cervical cancer ICD Code: C53.9 Status: Acute Assessment and Plan Ms. Mccauley is a 60-year-old female with a history of cervical cancer, hypertension who presented to the emergency department on 05/30/2016 due to rectal bleed. She was evaluated by GI but refused EGD and colonoscopy. She has not had any further GI bleed. She was also diagnosed with C. difficile colitis for which she has been taking Flagyl. She also has anasarca especially bilateral lower extremity edema. Doppler ultrasound of the left lower extremity was negative for any DVT. C. difficile colitis - Continue Flagyl 500 mg by mouth every 8 hours, Lactinex 1 tablet by mouth 3 times a day. Hypomagnesemia - Magnesium 1.3 on 06/08/2016. - BMP --> K+ 3.6, Na 131. Replaced Mg with IV Magnesium sulfate IV. GI bleed - patient has refused EGD and colonoscopy. No further GI bleed. Hemoglobin stable. Switched Protonix 40 mg IV every 12 hours to Protonix 40 mg BID. - Dysphagia - will consult Speech for swallow eval. If needed, we can obtain Modified barium swallow study and then GI consult. - Anasarca - likely due to low albumin. Echo done --> EF 55-60%. Essentially unremarkable Echo. - History of cervical cancer - patient to continue follow-up with Dr. Rodriguez at [facility] - Pruritis/ Uticaria - Dermatitis noted. Benadryl PRN. Hydrocortisone cream BID. Discussed with patient avoid using her nails scratching. Full code. On 06/07/2016, discussed with patient regarding DVT prophylaxis with heparin subcutaneously. Given the risk and benefit, I do recommend heparin for DVT prophylaxis. However patient refuses at this point. Discharge plan: [facility] is evaluated patient and declined. If patient does not improve within a few days, patient could be potentially transferred to [facility]. Problem Qualifiers (1) GI bleed: Qualified Code: K92.2 - Gastrointestinal hemorrhage, unspecified gastrointestinal hemorrhage type Peña Montero DO Jun 12, 2016 16:28
[2016-06-12 20:00] VITALS: BP 127/77; PULSE 94; RESP 16; TEMP 98.4; O2SAT 96
[2016-06-13] VITALS: BP 138/77; PULSE 95; RESP 16; TEMP 97.7; O2SAT 95
[2016-06-13] MEDS: MORPHINE SULFATE 4 MG/ML INJ IV PUSH PRN ×5 (01:11→22:49)
[2016-06-13] MEDS: ACETAMINOPHEN/HYDROcodone 325 MG/10 MG TAB PO PRN ×4 (02:35→21:08)
[2016-06-13] MEDS: diphenhydrAMINE HCL 25 MG CAP PO PRN ×2 (04:27→21:08)
[2016-06-13 04:35] VITALS: BP 127/63; PULSE 84; RESP 19; TEMP 97.2; O2SAT 85; O2SAT 95
[2016-06-13] MEDS: metroNIDAZOLE 500 MG TAB PO SCH ×3 (06:25→21:06)
[2016-06-13 08:00] VITALS: BP 127/85; PULSE 101; RESP 18; TEMP 97.8; O2SAT 96
[2016-06-13 08:32] LABS: BICARBONATE 32.9 MEQ/L (21.0-32.0); POTASSIUM 3.5 MEQ/L (3.5-5.1)
[2016-06-13] MEDS: LACTOBACILLUS ACIDOPHILUS TAB PO SCH ×3 (08:47→18:06)
[2016-06-13] MEDS: CALCIUM CARBONATE 1.25 GM (CA 500 MG) TAB PO SCH ×2 (08:48→21:08)
[2016-06-13] MEDS: POTASSIUM CHLORIDE 10 MEQ CONTROLLED RELEASE TAB PO SCH ×2 (08:50→21:08)
[2016-06-13] MEDS: Infusaport/Implanted VAD PRN NS Lock Flush IVF (08:50)
[2016-06-13] MEDS: PANTOPRAZOLE SOD 40 MG DELAYED RELEASE TAB PO SCH (08:50)
[2016-06-13] MEDS: FUROSEMIDE 20 MG TAB PO SCH (08:50)
[2016-06-13] MEDS: HYDROCORTISONE 1% CREAM 30 GM TOPICAL SCH ×2 (09:00→21:06)
[2016-06-13 12:00] VITALS: BP 127/77; PULSE 78; RESP 18; TEMP 97; O2SAT 95
--- NOTE | 2016-06-13 12:14 | HHI.PR ---
Subjective Remarks Patient eating her lunch sitting in bed, she is not pleasant I try to obtain information about her stool, as per the nurse she was told by report that to start to firm up, she seems to have 4 bowel movements yesterday Patient is poor historian due to her attitude She is afebrile Still having lower extremity pitting edema more on the left leg Objective Vitals Vital Signs Date Time Temp Pulse Resp B/P Pulse Ox O2 Delivery O2 Flow Rate FiO2 06/13/16 08:00 97.8 101 18 127/85 96 06/13/16 07:30 19 06/13/16 04:40 19 06/13/16 04:35 97.2 84 19 127/63 85 06/13/16 00:00 97.7 95 16 138/77 95 06/12/16 20:00 98.4 94 16 127/77 96 06/12/16 16:00 97.7 96 16 138/70 95 06/12/16 12:00 97.5 96 16 144/67 93 I/O 06/12/16 06/12/16 06/12/16 06/13/16 06/13/16 06/13/16 07:00 15:00 23:00 07:00 15:00 23:00 Intake Total 240 ml 720 ml 240 ml 360 ml 360 ml Balance 240 ml 720 ml 240 ml 360 ml 360 ml Intake Oral 240 ml 720 ml 240 ml 360 ml 360 ml # Voids 1 1 2 2 1 # Bowel Movements 0 1 2 1 Result Diagram: 06/13/16 0710 Objective Remarks - - GENERAL: This is a well-nourished, well-developed patient, in no apparent distress. SKIN: No rashes, warm and dry HEAD: Atraumatic. Normocephalic. EYES: Pupils equal round and reactive. Extraocular motions intact. No scleral icterus. ENT: Nose without bleeding, or drainage, Airway patent. NECK: Trachea midline. Supple CARDIOVASCULAR: Regular rate and rhythm without murmurs, gallops, or rubs. RESPIRATORY: Fair air entry bilaterally. No wheezes, rales, or rhonchi. GASTROINTESTINAL: Abdomen soft, non-tender, nondistended. Positive bowel sounds MUSCULOSKELETAL: +2 pitting edema thigh high in the left lower extremities L>R, NEUROLOGICAL: Awake and alert. Moves all extremity. Normal speech.no focal neurological deficit Procedures Echo 06/08/2016 - Left ventricle: The cavity size was normal. Wall thickness was normal. Systolic function was normal. The estimated ejection fraction was in the range of 55% to 60%. Wall motion was normal; there were no regional wall motion abnormalities. - Mitral valve: Mild regurgitation. - Tricuspid valve: Mild regurgitation. A/P Problem List: (1) C. difficile colitis ICD Code: A04.7 Status: Acute (2) Hypomagnesemia ICD Code: E83.42 Status: Acute (3) GI bleed ICD Code: K92.2 Status: Acute (4) Cervical cancer ICD Code: C53.9 Status: Acute Assessment and Plan Ms. Mccauley is a 60-year-old female with a history of cervical cancer, hypertension who presented to the emergency department on 05/30/2016 due to rectal bleed. She was evaluated by GI but refused EGD and colonoscopy. She has not had any further GI bleed. She was also diagnosed with C. difficile colitis for which she has been taking Flagyl. She also has anasarca especially bilateral lower extremity edema. Doppler ultrasound of the left lower extremity was negative for any DVT. C. difficile colitis - Continue Flagyl 500 mg by mouth every 8 hours, Lactinex 1 tablet by mouth 3 times a day. Day #12, if no improvement, will consider reconsulting GI Hypomagnesemia, hypokalemia -Monitor level and replace as needed GI bleed - patient has refused EGD and colonoscopy. No further GI bleed. Hemoglobin stable. Patient was on Protonix 40 mg BID we'll change to once daily considering her C. difficile - Dysphagia - will consult Speech for swallow eval. If needed, we can obtain Modified barium swallow study and then GI consult. - Anasarca - likely due to low albumin. Echo done --> EF 55-60%. Essentially unremarkable Echo. Echo of the lower extremity as well as CT of the abdomen and pelvic has been done which showed anasarca without specific etiology I will start trial of dopamine with Lasix, check potassium at 1800, check BMP, BNP in a.m. - History of cervical cancer - patient to continue follow-up with Dr. Rodriguez at [facility] - Pruritis/ Uticaria - Dermatitis noted. Benadryl PRN. Hydrocortisone cream BID. Full code. DVT prophylaxis SCD, not on chemical prophylaxis due to recent GI bleed, previously discussed with the patient resuming heparin subcutaneous, considering her history of cervical cancer and her risk of thrombosis however she refused Discharge plan: [facility] is evaluated patient and declined. If patient does not improve within a few days, patient could be potentially transferred to [facility]. Discharge Planning Patient still sick, when clinically improved Problem Qualifiers (1) GI bleed: Qualified Code: K92.2 - Gastrointestinal hemorrhage, unspecified gastrointestinal hemorrhage type Katie Mishra MD Jun 13, 2016 12:14 Katie Mishra MD Jun 13, 2016 12:14
[2016-06-13 16:00] VITALS: BP 143/87; PULSE 80; RESP 18; TEMP 97; O2SAT 97
[2016-06-13] MEDS: ALBUMIN HUMAN 5% 25 GM/500 ML BOTTLE IV SCH (18:06)
[2016-06-13] MEDS: FUROSEMIDE 40 MG/4 ML VIAL IV PUSH SCH (18:21)
[2016-06-13 20:00] VITALS: BP 142/78; PULSE 103; RESP 18; TEMP 98.3; O2SAT 95
[2016-06-14] VITALS: BP 133/76; PULSE 105; RESP 18; TEMP 97.4; O2SAT 97
[2016-06-14 04:00] VITALS: BP 117/77; PULSE 96; RESP 16; TEMP 97.3; O2SAT 95
[2016-06-14] MEDS: ACETAMINOPHEN/HYDROcodone 325 MG/10 MG TAB PO PRN ×5 (04:22→22:41)
[2016-06-14] MEDS: MORPHINE SULFATE 4 MG/ML INJ IV PUSH PRN ×4 (05:44→20:26)
[2016-06-14] MEDS: metroNIDAZOLE 500 MG TAB PO SCH ×3 (05:45→22:19)
[2016-06-14 06:22] LABS: BICARBONATE 31.9 MEQ/L (21.0-32.0); POTASSIUM 3.4 MEQ/L (3.5-5.1)
[2016-06-14 06:23] LABS: AUTOMATED NEUTROPHIL # 2.6 TH/MM3 (1.8-7.7); BASOPHIL % 0.8 % (0.0-2.0); EOSINOPHIL # 0.1 TH/MM3 (0-0.4); EOSINOPHIL % 1.9 % (0.0-4.0); HEMATOCRIT 27.7 % (35.0-46.0); HEMO FLAGS DIFF FINAL; LYMPH % 6.9 % (9.0-44.0); LYMPHOCYTE # 0.2 TH/MM3 (1.0-4.8); MEAN CELL VOLUME 107.5 FL (80.0-100.0); MEAN CORPUSCULAR HEMOGLOBIN 36.7 PG (27.0-34.0); MEAN CORPUSCULAR HGB CONC 34.2 % (32.0-36.0); MONO % 8.3 % (0.0-8.0); NEUT % 82.1 % (16.0-70.0); PLATELET COUNT 182 TH/MM3 (150-450); RED BLOOD COUNT 2.57 MIL/MM3 (4.00-5.30); RED CELL DISTRIBUTION WIDTH 14.6 % (11.6-17.2); WHITE BLOOD COUNT 3.2 TH/MM3 (4.0-11.0)
[2016-06-14 08:00] VITALS: BP 148/73; PULSE 88; RESP 20; TEMP 97; O2SAT 98
[2016-06-14] MEDS: POTASSIUM CHLORIDE 10 MEQ CONTROLLED RELEASE TAB PO SCH ×2 (08:12→20:28)
[2016-06-14] MEDS: LACTOBACILLUS ACIDOPHILUS TAB PO SCH ×3 (08:12→17:21)
[2016-06-14] MEDS: PANTOPRAZOLE SOD 40 MG DELAYED RELEASE TAB PO SCH (08:12)
[2016-06-14] MEDS: CALCIUM CARBONATE 1.25 GM (CA 500 MG) TAB PO SCH ×2 (08:12→20:28)
[2016-06-14] MEDS: HYDROCORTISONE 1% CREAM 30 GM TOPICAL SCH ×2 (08:13→20:28)
[2016-06-14 12:00] VITALS: BP 150/84; PULSE 98; RESP 20; TEMP 97.7; O2SAT 98
[2016-06-14] MEDS: ALBUMIN HUMAN 5% 25 GM/500 ML BOTTLE IV SCH (12:00)
[2016-06-14] MEDS: FUROSEMIDE 40 MG/4 ML VIAL IV PUSH SCH (13:21)
[2016-06-14 15:30] VITALS: BP 146/86; PULSE 90; RESP 20; TEMP 96.4; O2SAT 98
--- NOTE | 2016-06-14 18:35 | HHI.PR ---
Subjective Remarks Patient seems to be doing well as far as the leg swelling with the albumin and Lasix She had 2 small bowel movement that soft today as per the nurse, per the patient she had 4-5 bowel movements, however she still have abdominal pain to palpation No fever no leukocytosis, hemoglobin is 9.5 Objective Vitals Vital Signs Date Time Temp Pulse Resp B/P Pulse Ox O2 Delivery O2 Flow Rate FiO2 06/14/16 15:30 96.4 90 20 146/86 98 06/14/16 12:00 97.7 98 20 150/84 98 06/14/16 08:00 97.0 88 20 148/73 98 06/14/16 06:25 20 06/14/16 05:40 19 06/14/16 04:00 97.3 96 16 117/77 95 06/14/16 00:00 97.4 105 18 133/76 97 06/13/16 20:00 98.3 103 18 142/78 95 I/O 06/13/16 06/13/16 06/13/16 06/14/16 06/14/16 06/14/16 07:00 15:00 23:00 07:00 15:00 23:00 Intake Total 360 ml 720 ml 1320 ml 720 ml 1200 ml 500 ml Balance 360 ml 720 ml 1320 ml 720 ml 1200 ml 500 ml Intake Oral 360 ml 720 ml 1320 ml 720 ml 1200 ml IV Total 500 ml # Voids 2 1 2 2 4 1 # Bowel Movements 1 4 1 3 1 Result Diagram: 06/14/16 0424 06/14/16 0424 Objective Remarks - - GENERAL: This is a well-nourished, well-developed patient, in no apparent distress. SKIN: No rashes, warm and dry HEAD: Atraumatic. Normocephalic. EYES: Pupils equal round and reactive. Extraocular motions intact. No scleral icterus. ENT: Nose without bleeding, or drainage, Airway patent. NECK: Trachea midline. Supple CARDIOVASCULAR: Regular rate and rhythm without murmurs, gallops, or rubs. RESPIRATORY: Fair air entry bilaterally. No wheezes, rales, or rhonchi. GASTROINTESTINAL: Abdomen soft, non-tender, nondistended. Positive bowel sounds MUSCULOSKELETAL: +2 pitting edema thigh high in the left lower extremities L>R, NEUROLOGICAL: Awake and alert. Moves all extremity. Normal speech.no focal neurological deficit Procedures Echo 06/08/2016 - Left ventricle: The cavity size was normal. Wall thickness was normal. Systolic function was normal. The estimated ejection fraction was in the range of 55% to 60%. Wall motion was normal; there were no regional wall motion abnormalities. - Mitral valve: Mild regurgitation. - Tricuspid valve: Mild regurgitation. A/P Problem List: (1) C. difficile colitis ICD Code: A04.7 Status: Acute (2) Hypomagnesemia ICD Code: E83.42 Status: Acute (3) GI bleed ICD Code: K92.2 Status: Acute (4) Cervical cancer ICD Code: C53.9 Status: Acute Assessment and Plan Ms. Mccauley is a 60-year-old female with a history of cervical cancer, hypertension who presented to the emergency department on 05/30/2016 due to rectal bleed. She was evaluated by GI but refused EGD and colonoscopy. She has not had any further GI bleed. She was also diagnosed with C. difficile colitis for which she has been taking Flagyl. She also has anasarca especially bilateral lower extremity edema. Doppler ultrasound of the left lower extremity was negative for any DVT. C. difficile colitis - Continue Flagyl 500 mg by mouth every 8 hours, Lactinex 1 tablet by mouth 3 times a day. Day #13, will reconsult GI considering her continuing abdominal pain, and for further recommendation prior to discharge Hypomagnesemia, hypokalemia -Monitor level and replace as needed GI bleed - patient has refused EGD and colonoscopy. No further GI bleed. Hemoglobin stable. Patient was on Protonix 40 mg BID we'll change to once daily considering her C. difficile - Dysphagia - will consult Speech for swallow eval. If needed, we can obtain Modified barium swallow study and then GI consult. - Anasarca - likely due to low albumin. Echo done --> EF 55-60%. Essentially unremarkable Echo. Echo of the lower extremity as well as CT of the abdomen and pelvic has been done which showed anasarca without specific etiology . Patient doing well with trial of albumin with Lasix, continue monitoring BMP, BNP in a.m. BNP trending down today, will continue on Lasix IV - History of cervical cancer - patient to continue follow-up with Dr. Rodriguez at [facility] - Pruritis/ Uticaria - Dermatitis noted. Benadryl PRN. Hydrocortisone cream BID. Full code. DVT prophylaxis SCD, not on chemical prophylaxis due to recent GI bleed, previously discussed with the patient resuming heparin subcutaneous, considering her history of cervical cancer and her risk of thrombosis however she refused Discharge plan: [facility] is evaluated patient and declined. If patient does not improve within a few days, patient could be potentially transferred to [facility]. Discharge Planning Patient still sick, when clinically improved Problem Qualifiers (1) GI bleed: Qualified Code: K92.2 - Gastrointestinal hemorrhage, unspecified gastrointestinal hemorrhage type Katie Mishra MD Jun 14, 2016 18:35
[2016-06-14 20:00] VITALS: BP 136/72; PULSE 90; RESP 18; TEMP 97.4; O2SAT 97
[2016-06-14] MEDS: ONDANSETRON HCL 4 MG/2 ML VIAL IV PUSH PRN (20:16)
[2016-06-15] VITALS: BP 151/86; PULSE 86; RESP 16; TEMP 98.2; O2SAT 98
[2016-06-15] MEDS: MORPHINE SULFATE 4 MG/ML INJ IV PUSH PRN ×5 (00:34→20:30)
[2016-06-15 04:00] VITALS: BP 133/75; PULSE 96; RESP 16; TEMP 98.3; O2SAT 95
[2016-06-15] MEDS: ACETAMINOPHEN/HYDROcodone 325 MG/10 MG TAB PO PRN ×4 (04:18→22:26)
[2016-06-15] MEDS: metroNIDAZOLE 500 MG TAB PO SCH ×3 (06:14→22:26)
[2016-06-15] MEDS: diphenhydrAMINE HCL 25 MG CAP PO PRN ×2 (06:14→16:06)
[2016-06-15] MEDS: Infusaport/Implanted VAD PRN NS Lock Flush IVF (06:14)
[2016-06-15 07:34] LABS: BICARBONATE 33.6 MEQ/L (21.0-32.0); POTASSIUM 3.3 MEQ/L (3.5-5.1)
[2016-06-15 08:00] VITALS: BP 132/72; PULSE 93; RESP 20; TEMP 97; O2SAT 96
[2016-06-15] MEDS: LACTOBACILLUS ACIDOPHILUS TAB PO SCH ×3 (08:54→17:25)
[2016-06-15] MEDS: PANTOPRAZOLE SOD 40 MG DELAYED RELEASE TAB PO SCH (08:54)
[2016-06-15] MEDS: FUROSEMIDE 40 MG/4 ML VIAL IV PUSH SCH ×2 (08:55→17:25)
[2016-06-15] MEDS: HYDROCORTISONE 1% CREAM 30 GM TOPICAL SCH ×2 (08:55→20:31)
[2016-06-15] MEDS: POTASSIUM CHLORIDE 10 MEQ CONTROLLED RELEASE TAB PO SCH ×2 (08:55→20:31)
[2016-06-15] MEDS: CALCIUM CARBONATE 1.25 GM (CA 500 MG) TAB PO SCH ×2 (08:55→20:31)
[2016-06-15 12:00] VITALS: BP 129/68; PULSE 89; RESP 20; TEMP 97.6; O2SAT 97
--- NOTE | 2016-06-15 12:03 | HHI.GIFU ---
Subjective Remarks Resting in bed. EMR reports 8 bowel movements- patient states that she has had formed bowel movements for a few days and only 2 today. She has had worsening abdominal distention since last night with associated pain. She has a umbilical hernia which is reducible. (Adrianna Coyne) Objective Vitals I&O Vital Signs Date Time Temp Pulse Resp B/P Pulse Ox O2 Delivery O2 Flow Rate FiO2 06/15/16 08:00 97.0 93 20 132/72 96 06/15/16 04:00 98.3 96 16 133/75 95 06/15/16 00:00 98.2 86 16 151/86 98 06/14/16 20:00 97.4 90 18 136/72 97 06/14/16 15:30 96.4 90 20 146/86 98 06/14/16 12:00 97.7 98 20 150/84 98 I/O 06/14/16 06/14/16 06/14/16 06/15/16 06/15/16 06/15/16 07:00 15:00 23:00 07:00 15:00 23:00 Intake Total 720 ml 1200 ml 1580 ml 720 ml Balance 720 ml 1200 ml 1580 ml 720 ml Intake Oral 720 ml 1200 ml 1080 ml 720 ml IV Total 500 ml # Voids 2 4 6 2 # Bowel Movements 1 3 5 Laboratory Laboratory Tests Test 06/15/16 04:40 Sodium Level 137 Potassium Level 3.3 Chloride Level 96 Carbon Dioxide Level 33.6 Anion Gap 7 Blood Urea Nitrogen 3 Creatinine 0.36 Estimat Glomerular Filtration 183 Rate Random Glucose 101 Calcium Level 8.3 B-Type Natriuretic Peptide 318 Imaging Last Impressions Lower Extremity Ultrasound 06/04/16 0000 Signed Impressions: Service Date/Time: May 11:08 - CONCLUSION: No DVT is present within the left lower extremity. Subcutaneous edema is visualized. Darrick Hi MD Abdomen/Pelvis CT 06/04/16 0000 Signed Impressions: Service Date/Time: Sunday, June 05, 2016 00:06 - CONCLUSION: 1. Liver slightly nodular could be from early morphologic changes of cirrhosis. 2. Mild abdominal ascites and tiny bilateral pleural effusions. 3. Mild superior endplate compression fracture at T12 likely old. 4. Diffuse anasarca. Aristides Barbosa MD Liver Ultrasound 05/30/16 0000 Signed Impressions: Service Date/Time: Monday, May 30, 2016 21:55 - CONCLUSION: 1. The liver is slightly echogenic which maybe due to fatty infiltration and or hepatocellular dysfunction. 2. Sludge in the gallbladder with mild pericholecystic fluid nonspecific. No definite gallstones. Shantel Pryor MD Physical Exam HEENT: Normocephalic; atraumatic; no jaundice. CHEST: CTA CARDIAC: RRR ABDOMEN: Soft, mildly distended, mild tenderness; no hepatosplenomegaly; bowel sounds are present in all four quadrants. EXTREMITIES: No clubbing, cyanosis, or edema. 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 (Adrianna Coyne) Assessment and Plan Plan ASSESSMENT: - Abdominal pain. Pt reports that she started having more abdominal pain yesterday and that she has an umbilical hernia. This is reducible. She does have mild abdominal distention today. Will get KUB to r /o ileus. - CDiff Colitis. This is her second episode. Pt is on Flagyl. The emr reports that she had 8 bm's, but patient reports that she has not and that she is having formed stool. She reports 2 formed stool today. - BRBPR. No further episodes. Refused egd/colonoscopy. - Anemia, macrocytic. 9.5/27.7. - Hypokalemia, Hypocalcemia, Hyponatremia. Per primary PLAN: - Regular diet - KUB - Cont. PPI - Monitor stool output. - Would recommend an additional 7 days of Flagyl at discharge - Supportive care - Further recommendations to follow based on results of above - Pt seen and examined by Dr. Quinonez and myself and this note is written on his behalf (Adrianna Coyne) Physician Comments Patient was seen and examined Agree with above Continue with current supportive care Monitor labs We will obtain an x-ray (Danielito Carrington MD) Adrianna Coyne Jun 15, 2016 12:03 Danielito Carrington MD Jun 15, 2016 14:44
--- NOTE | 2016-06-15 15:36 | RADRPT ---
EXAM DATE/TIME: 06/15/2016 14:50 [place] COMPARISON: No previous studies available for comparison. INDICATIONS : Ileus. Diarrhea. MEDICAL HISTORY : C-diff SURGICAL HISTORY : section. D&C ENCOUNTER: Initial ACUITY: 1 week PAIN SCORE: 4/10 LOCATION: Bilateral abdomen FINDINGS: Degenerative changes and scoliosis of the thoracolumbar spine are noted. There is no bowel obstructi on, ileus or perforation. CONCLUSION: 1. No evidence of bowel obstruction, ileus or perforation. 2. Degenerative changes and mild scoliosis of the thoracolumbar spine. Maged Shore MD on June 15, 2016 at 15:24 Board Certified Radiologist. This report was verified electronically.
--- NOTE | 2016-06-15 15:54 | HHI.PR ---
Subjective Remarks Patient looks very debilitated, fatigue and tired She stated she had one bowel movement today that was semi-firm Still having periumbilical pain that significant to palpation She is afebrile, still on Flagyl I discussed with GI they ordered KUB earlier today, they will follow up to rule out ileus and they recommended additional week of Flagyl at discharge Her leg still swollen but much better than before she still on diuretic Objective Vitals Vital Signs Date Time Temp Pulse Resp B/P Pulse Ox O2 Delivery O2 Flow Rate FiO2 06/15/16 12:00 97.6 89 20 129/68 97 06/15/16 08:00 97.0 93 20 132/72 96 06/15/16 04:00 98.3 96 16 133/75 95 06/15/16 00:00 98.2 86 16 151/86 98 06/14/16 20:00 97.4 90 18 136/72 97 I/O 06/14/16 06/14/16 06/14/16 06/15/16 06/15/16 06/15/16 07:00 15:00 23:00 07:00 15:00 23:00 Intake Total 720 ml 1200 ml 1580 ml 720 ml 480 ml Balance 720 ml 1200 ml 1580 ml 720 ml 480 ml Intake Oral 720 ml 1200 ml 1080 ml 720 ml 480 ml IV Total 500 ml # Voids 2 4 6 2 3 # Bowel Movements 1 3 5 1 Result Diagram: 06/14/16 0424 06/15/16 0440 Objective Remarks - - GENERAL: This is a well-nourished, well-developed patient, in no apparent distress. SKIN: No rashes, warm and dry HEAD: Atraumatic. Normocephalic. EYES: Pupils equal round and reactive. Extraocular motions intact. No scleral icterus. ENT: Nose without bleeding, or drainage, Airway patent. NECK: Trachea midline. Supple CARDIOVASCULAR: Regular rate and rhythm without murmurs, gallops, or rubs. RESPIRATORY: Fair air entry bilaterally. No wheezes, rales, or rhonchi. GASTROINTESTINAL: Abdomen soft, non-tender, nondistended. Positive bowel sounds MUSCULOSKELETAL: +2 pitting edema left lower extremities L>R, however better than before NEUROLOGICAL: Awake and alert. Moves all extremity. Normal speech.no focal neurological deficit Procedures Echo 06/08/2016 - Left ventricle: The cavity size was normal. Wall thickness was normal. Systolic function was normal. The estimated ejection fraction was in the range of 55% to 60%. Wall motion was normal; there were no regional wall motion abnormalities. - Mitral valve: Mild regurgitation. - Tricuspid valve: Mild regurgitation. A/P Problem List: (1) C. difficile colitis ICD Code: A04.7 Status: Acute (2) Hypomagnesemia ICD Code: E83.42 Status: Acute (3) GI bleed ICD Code: K92.2 Status: Acute (4) Cervical cancer ICD Code: C53.9 Status: Acute Assessment and Plan 06/15/16: Discussed with GI, will order a KUB rule out ileus, continue on Flagyl for extra week Lower extremity edema still there but better than before we'll continue diuretic, monitor BMP A/P: Ms. Mccauley is a 60-year-old female with a history of cervical cancer, hypertension who presented to the emergency department on 05/30/2016 due to rectal bleed. She was evaluated by GI but refused EGD and colonoscopy. She has not had any further GI bleed. She was also diagnosed with C. difficile colitis for which she has been taking Flagyl. She also has anasarca especially bilateral lower extremity edema. Doppler ultrasound of the left lower extremity was negative for any DVT. C. difficile colitis - Continue Flagyl 500 mg by mouth every 8 hours, Lactinex 1 tablet by mouth 3 times a day. Patient about to finish 14 days, reconsulted GI considering her continuing abdominal pain Hypomagnesemia, hypokalemia -Monitor level and replace as needed GI bleed - patient has refused EGD and colonoscopy. No further GI bleed. Hemoglobin stable. Patient was on Protonix 40 mg BID we'll change to once daily considering her C. difficile - Dysphagia - will consult Speech for swallow eval. If needed, we can obtain Modified barium swallow study and then GI consult. - Anasarca - likely due to low albumin. Echo done --> EF 55-60%. Essentially unremarkable Echo. Echo of the lower extremity as well as CT of the abdomen and pelvic has been done which showed anasarca without specific etiology . Patient doing well with trial of albumin with Lasix, continue monitoring BMP, BNP in a.m. BNP trending down today, will continue on Lasix IV - History of cervical cancer - patient to continue follow-up with Dr. Rodriguez at [facility] - Pruritis/ Uticaria - Dermatitis noted. Benadryl PRN. Hydrocortisone cream BID. Full code. DVT prophylaxis SCD, not on chemical prophylaxis due to recent GI bleed, previously discussed with the patient resuming heparin subcutaneous, considering her history of cervical cancer and her risk of thrombosis however she refused Discharge plan: [facility] is evaluated patient and declined. If patient does not improve within a few days, patient could be potentially transferred to [facility]. Discharge Planning Patient significantly weak, will need rehabilitation Problem Qualifiers (1) GI bleed: Qualified Code: K92.2 - Gastrointestinal hemorrhage, unspecified gastrointestinal hemorrhage type Katie Mishra MD Jun 15, 2016 15:54
[2016-06-15 16:00] VITALS: BP 150/76; PULSE 86; RESP 19; TEMP 98.2; O2SAT 97
[2016-06-15 22:00] VITALS: BP 128/80; PULSE 102; RESP 18; TEMP 98; O2SAT 97
[2016-06-16] MEDS: ACETAMINOPHEN/HYDROcodone 325 MG/10 MG TAB PO PRN ×5 (03:54→21:21)
[2016-06-16 04:00] VITALS: BP 134/77; PULSE 110; RESP 18; TEMP 97.4; O2SAT 94
[2016-06-16] MEDS: metroNIDAZOLE 500 MG TAB PO SCH ×3 (05:58→21:20)
[2016-06-16] MEDS: MORPHINE SULFATE 4 MG/ML INJ IV PUSH PRN ×4 (06:01→21:49)
[2016-06-16 08:00] VITALS: BP 156/92; PULSE 92; RESP 16; TEMP 97.7; O2SAT 97
[2016-06-16] MEDS: LACTOBACILLUS ACIDOPHILUS TAB PO SCH ×3 (08:34→17:27)
[2016-06-16] MEDS: POTASSIUM CHLORIDE 10 MEQ CONTROLLED RELEASE TAB PO SCH (08:34)
[2016-06-16] MEDS: CALCIUM CARBONATE 1.25 GM (CA 500 MG) TAB PO SCH ×2 (08:34→21:20)
[2016-06-16] MEDS: PANTOPRAZOLE SOD 40 MG DELAYED RELEASE TAB PO SCH (08:34)
[2016-06-16] MEDS: FUROSEMIDE 40 MG/4 ML VIAL IV PUSH SCH ×2 (08:35→17:26)
[2016-06-16] MEDS: HYDROCORTISONE 1% CREAM 30 GM TOPICAL SCH ×2 (08:35→21:24)
[2016-06-16 12:00] VITALS: BP 116/69; PULSE 93; RESP 16; TEMP 96.6; O2SAT 97
--- NOTE | 2016-06-16 14:06 | HHI.GIFU ---
Subjective Remarks Resting in bed. States she is feeling better today. Still having formed bowel movements- one today. Abdominal pain much improved, just sore if she coughs without splinting her abdomen. (Adrianna Coyne Lexii REBEL) Objective Vitals I&O Vital Signs Date Time Temp Pulse Resp B/P Pulse Ox O2 Delivery O2 Flow Rate FiO2 06/16/16 12:32 16 06/16/16 12:00 96.6 93 16 116/69 97 06/16/16 10:24 16 06/16/16 08:00 97.7 92 16 156/92 97 06/16/16 04:00 97.4 110 18 134/77 94 06/15/16 22:00 98.0 102 18 128/80 97 06/15/16 16:00 98.2 86 19 150/76 97 I/O 06/15/16 06/15/16 06/15/16 06/16/16 06/16/16 06/16/16 07:00 15:00 23:00 07:00 15:00 23:00 Intake Total 720 ml 480 ml 300 ml Balance 720 ml 480 ml 300 ml Intake Oral 720 ml 480 ml 300 ml # Voids 2 3 2 # Bowel Movements 1 2 1 1 Imaging Last Impressions Abdomen X-Ray 06/15/16 0000 Signed Impressions: Service Date/Time: Wednesday, June 15, 2016 14:50 - CONCLUSION: 1. No evidence of bowel obstruction, ileus or perforation. 2. Degenerative changes and mild scoliosis of the thoracolumbar spine. Maged Shore MD Lower Extremity Ultrasound 06/04/16 0000 Signed Impressions: Service Date/Time: May 11:08 - CONCLUSION: No DVT is present within the left lower extremity. Subcutaneous edema is visualized. Darrick Hi MD Abdomen/Pelvis CT 06/04/16 0000 Signed Impressions: Service Date/Time: Sunday, June 05, 2016 00:06 - CONCLUSION: 1. Liver slightly nodular could be from early morphologic changes of cirrhosis. 2. Mild abdominal ascites and tiny bilateral pleural effusions. 3. Mild superior endplate compression fracture at T12 likely old. 4. Diffuse anasarca. Aristides Barbosa MD Liver Ultrasound 05/30/16 0000 Signed Impressions: Service Date/Time: Monday, May 30, 2016 21:55 - CONCLUSION: 1. The liver is slightly echogenic which maybe due to fatty infiltration and or hepatocellular dysfunction. 2. Sludge in the gallbladder with mild pericholecystic fluid nonspecific. No definite gallstones. Shantel Pryor MD Physical Exam HEENT: Normocephalic; atraumatic; no jaundice. CHEST: CTA CARDIAC: RRR ABDOMEN: Soft, mildly distended, mild tenderness; no hepatosplenomegaly; bowel sounds are present in all four quadrants. EXTREMITIES: No clubbing, cyanosis, or edema. SKIN: Multiple ecchymotic areas PERSONAL CARER: No focal deficits; alert and oriented times three. (Adrianna Coyne) Assessment and Plan Plan ASSESSMENT: - Abdominal pain. IMPROVED. Abdomen X-Ray (06/15/16)------> 1. No evidence of bowel obstruction, ileus or perforation. 2. Degenerative changes and mild scoliosis of the thoracolumbar spine. Much improved today. States she only has pain if she coughs and then her abdomen is sore. - CDiff Colitis. This is her second episode. Pt is on Flagyl. Doing well. One formed stool today. - BRBPR. No further episodes. Refused egd/colonoscopy. - Anemia, macrocytic. HH Stable. - Hypokalemia, Hypocalcemia, Hyponatremia. Per primary PLAN: - Regular diet - Cont. PPI - Monitor stool output. - Would recommend an additional 7 days of Flagyl at discharge - Supportive care - Further recommendations to follow based on results of above - Pt seen and examined by Dr. Carrington and myself and this note is written on his behalf (Adrianna Coyne) Physician Comments Patient seen and examined Agree with above Continue with current supportive care Monitor labs Continue Flagyl for 1 week post discharge We will sign off (Danielito Carrington MD) Adrianna Coyne Jun 16, 2016 14:06 Danielito Carrington MD Jun 16, 2016 20:45
[2016-06-16] MEDS ORDERED: FURO20TA PO (15:21)
[2016-06-16] MEDS ORDERED: OYST500T11 PO (15:21)
[2016-06-16] MEDS ORDERED: METR-1 PO (15:21)
[2016-06-16] MEDS ORDERED: LACT PO (15:21)
[2016-06-16] MEDS ORDERED: K-TA10TA PO (15:22)
--- NOTE | 2016-06-16 15:36 | HHI.PR ---
Subjective Remarks Resting in bed Finally stool with firmed up Much less abdominal pain, afebrile Hemoglobin stable Discussed with GI, patient can be discharged on 10 more days of Flagyl with PPI once daily However discussed with case coordinator, insurance doesn't cover rehabilitation, PT recommended rehabilitation, will continue with PT to assess once eligible to go home with home health care Objective Vitals Vital Signs Date Time Temp Pulse Resp B/P Pulse Ox O2 Delivery O2 Flow Rate FiO2 06/16/16 12:32 16 06/16/16 12:00 96.6 93 16 116/69 97 06/16/16 10:24 16 06/16/16 08:00 97.7 92 16 156/92 97 06/16/16 04:00 97.4 110 18 134/77 94 06/15/16 22:00 98.0 102 18 128/80 97 06/15/16 16:00 98.2 86 19 150/76 97 I/O 06/15/16 06/15/16 06/15/16 06/16/16 06/16/16 06/16/16 07:00 15:00 23:00 07:00 15:00 23:00 Intake Total 720 ml 480 ml 300 ml Balance 720 ml 480 ml 300 ml Intake Oral 720 ml 480 ml 300 ml # Voids 2 3 3 # Bowel Movements 1 2 1 2 Result Diagram: 06/14/16 0424 06/15/16 0440 Objective Remarks - - GENERAL: This is a well-nourished, well-developed patient, in no apparent distress. SKIN: No rashes, warm and dry HEAD: Atraumatic. Normocephalic. EYES: Pupils equal round and reactive. Extraocular motions intact. No scleral icterus. ENT: Nose without bleeding, or drainage, Airway patent. NECK: Trachea midline. Supple CARDIOVASCULAR: Regular rate and rhythm without murmurs, gallops, or rubs. RESPIRATORY: Fair air entry bilaterally. No wheezes, rales, or rhonchi. GASTROINTESTINAL: Abdomen soft, non-tender, nondistended. Positive bowel sounds MUSCULOSKELETAL: +2 pitting edema left lower extremities L>R, however better than before NEUROLOGICAL: Awake and alert. Moves all extremity. Normal speech.no focal neurological deficit Procedures Echo 06/08/2016 - Left ventricle: The cavity size was normal. Wall thickness was normal. Systolic function was normal. The estimated ejection fraction was in the range of 55% to 60%. Wall motion was normal; there were no regional wall motion abnormalities. - Mitral valve: Mild regurgitation. - Tricuspid valve: Mild regurgitation. A/P Problem List: (1) C. difficile colitis ICD Code: A04.7 Status: Acute (2) Hypomagnesemia ICD Code: E83.42 Status: Acute (3) GI bleed ICD Code: K92.2 Status: Acute (4) Cervical cancer ICD Code: C53.9 Status: Acute Assessment and Plan 06/15/16: Discussed with GI, will order a KUB rule out ileus, continue on Flagyl for extra week Lower extremity edema still there but better than before we'll continue diuretic, monitor BMP 06/16/16: Lower extremity edema improving, will continue on iv Lasix while in the hospital, and will discharge on by mouth, discussed with nurse and with the case coordinator, and with GI, cleared by GI for discharge however patient is still weak EtOH recommended rehabilitation which is not covered by insurance, will continue PT effort until patient able to go home with home health care A/P: Ms. Mccauley is a 60-year-old female with a history of cervical cancer, hypertension who presented to the emergency department on 05/30/2016 due to rectal bleed. She was evaluated by GI but refused EGD and colonoscopy. She has not had any further GI bleed. She was also diagnosed with C. difficile colitis for which she has been taking Flagyl. She also has anasarca especially bilateral lower extremity edema. Doppler ultrasound of the left lower extremity was negative for any DVT. C. difficile colitis - Continue Flagyl 500 mg by mouth every 8 hours, Lactinex 1 tablet by mouth 3 times a day. Almost almost completed 14 days, reconsulted GI considering her continuing abdominal pain, KUB ordered no ileus or obstruction, GI recommended 10 more days of Flagyl with continuing PPI once a day Hypomagnesemia, hypokalemia -Monitor level and replace as needed GI bleed - patient has refused EGD and colonoscopy. No further GI bleed. Hemoglobin stable. Patient was on Protonix 40 mg BID we'll change to once daily considering her C. difficile - Dysphagia - will consult Speech for swallow eval. If needed, we can obtain Modified barium swallow study and then GI consult. - Anasarca - likely due to low albumin. Echo done --> EF 55-60%. Essentially unremarkable Echo. Echo of the lower extremity as well as CT of the abdomen and pelvic has been done which showed anasarca without specific etiology . Patient doing well with trial of albumin with Lasix, continue monitoring BMP, BNP in a.m. BNP trending down today, will continue on Lasix IV - History of cervical cancer - patient to continue follow-up with Dr. Rodriguez at [facility] - Pruritis/ Uticaria - Dermatitis noted. Benadryl PRN. Hydrocortisone cream BID. Full code. DVT prophylaxis SCD, not on chemical prophylaxis due to recent GI bleed, previously discussed with the patient resuming heparin subcutaneous, considering her history of cervical cancer and her risk of thrombosis however she refused Discharge plan: Flakito is evaluated patient and declined. If patient does not improve within a few days, patient could be potentially transferred to [facility]. Discharge Planning Radical he can be Discharged to rehabilitation Problem Qualifiers (1) GI bleed: Qualified Code: K92.2 - Gastrointestinal hemorrhage, unspecified gastrointestinal hemorrhage type Katie Mishra MD Jun 16, 2016 15:36
[2016-06-16 16:00] VITALS: BP 135/77; PULSE 96; RESP 16; TEMP 98.2; O2SAT 99
[2016-06-16 21:00] VITALS: BP 150/89; PULSE 116; RESP 18; TEMP 98.9; O2SAT 96
[2016-06-16] MEDS: diphenhydrAMINE HCL 25 MG CAP PO PRN (23:31)
[2016-06-16] MEDS: ACETAMINOPHEN/HYDROcodone 325 MG/5 MG TAB PO PRN (23:32)
[2016-06-17] VITALS: BP 147/83; PULSE 90; RESP 18; TEMP 96.9; O2SAT 97
[2016-06-17] MEDS: MORPHINE SULFATE 4 MG/ML INJ IV PUSH PRN ×4 (00:36→20:40)
[2016-06-17] MEDS: ACETAMINOPHEN/HYDROcodone 325 MG/10 MG TAB PO PRN ×5 (03:32→22:43)
[2016-06-17 04:00] VITALS: BP 136/75; PULSE 97; RESP 18; TEMP 98.1; O2SAT 95
[2016-06-17] MEDS: diphenhydrAMINE HCL 25 MG CAP PO PRN ×2 (05:30→18:01)
[2016-06-17] MEDS: metroNIDAZOLE 500 MG TAB PO SCH ×3 (05:30→20:39)
[2016-06-17 06:32] LABS: AUTOMATED NEUTROPHIL # 4.2 TH/MM3 (1.8-7.7); BASOPHIL % 0.7 % (0.0-2.0); EOSINOPHIL # 0.1 TH/MM3 (0-0.4); EOSINOPHIL % 1.9 % (0.0-4.0); HEMATOCRIT 29.1 % (35.0-46.0); HEMO FLAGS DIFF FINAL; LYMPH % 4.8 % (9.0-44.0); LYMPHOCYTE # 0.2 TH/MM3 (1.0-4.8); MEAN CORPUSCULAR HEMOGLOBIN 36.4 PG (27.0-34.0); MEAN CORPUSCULAR HGB CONC 34.3 % (32.0-36.0); MONO % 8.6 % (0.0-8.0); PLATELET COUNT 217 TH/MM3 (150-450); RED BLOOD COUNT 2.75 MIL/MM3 (4.00-5.30); RED CELL DISTRIBUTION WIDTH 14.7 % (11.6-17.2)
[2016-06-17 06:55] LABS: BICARBONATE 34.6 MEQ/L (21.0-32.0); POTASSIUM 3.3 MEQ/L (3.5-5.1)
[2016-06-17] MEDS: FUROSEMIDE 40 MG/4 ML VIAL IV PUSH SCH (07:55)
[2016-06-17] MEDS: PANTOPRAZOLE SOD 40 MG DELAYED RELEASE TAB PO SCH (07:55)
[2016-06-17] MEDS: CALCIUM CARBONATE 1.25 GM (CA 500 MG) TAB PO SCH ×2 (07:55→20:39)
[2016-06-17] MEDS: LACTOBACILLUS ACIDOPHILUS TAB PO SCH ×3 (07:56→18:01)
[2016-06-17] MEDS: HYDROCORTISONE 1% CREAM 30 GM TOPICAL SCH ×2 (07:56→20:40)
[2016-06-17 08:00] VITALS: BP 134/78; PULSE 92; RESP 16; TEMP 96.8; O2SAT 94
[2016-06-17 12:00] VITALS: BP 126/76; PULSE 91; RESP 18; TEMP 97.1; O2SAT 98
[2016-06-17] MEDS ORDERED: POTASSIUM CHLORIDE 20 MEQ CONTROLLED RELEASE TAB PO ONE (12:45)
--- NOTE | 2016-06-17 13:44 | HHI.PR ---
Subjective Remarks This is a follow up on patient came with GI bleed, C. difficile diarrhea, severe debilitating and weakness, lower extremity edema and hypoalbuminemia, patient treated with Flagyl, ER consult obtained but patient refused workup, she complained of severe pain in her back, Yesterday I talked to the Anahi from the insurance company as peer to peer regarding denying her last few days at the hospital, I went through all her condition in details, explained the issue of unsafe discharge knowing her level of weakness as mentioned per the PT evaluation, and her condition of living with her paralyzed son, they still recommended expediting her discharge, so I placed discharge order to go to rehabilitation, and discussed the issue with the case coordinator. It might be an issue for placement, patient may appeal to discharge. Clinically she started doing better, diarrhea is improved, leg swelling improved , continue on diuresis, she is afebrile, no chest pain or short of breath Objective Vitals Vital Signs Date Time Temp Pulse Resp B/P Pulse Ox O2 Delivery O2 Flow Rate FiO2 06/17/16 10:22 16 06/17/16 10:22 16 06/17/16 08:00 96.8 92 16 134/78 94 06/17/16 04:00 98.1 97 18 136/75 95 06/17/16 00:37 18 06/17/16 00:00 96.9 90 18 147/83 97 06/16/16 21:00 98.9 116 18 150/89 96 06/16/16 16:00 98.2 96 16 135/77 99 I/O 06/16/16 06/16/16 06/16/16 06/17/16 06/17/16 06/17/16 07:00 15:00 23:00 07:00 15:00 23:00 Intake Total 780 ml 1080 ml 480 ml Balance 780 ml 1080 ml 480 ml Intake Oral 780 ml 1080 ml 480 ml # Voids 3 5 2 # Bowel Movements 1 2 2 Result Diagram: 06/17/16 0534 06/17/16 0534 Objective Remarks - - GENERAL: This is a well-nourished, well-developed patient, in no apparent distress. SKIN: No rashes, warm and dry HEAD: Atraumatic. Normocephalic. EYES: Pupils equal round and reactive. Extraocular motions intact. No scleral icterus. ENT: Nose without bleeding, or drainage, Airway patent. NECK: Trachea midline. Supple CARDIOVASCULAR: Regular rate and rhythm without murmurs, gallops, or rubs. RESPIRATORY: Fair air entry bilaterally. No wheezes, rales, or rhonchi. GASTROINTESTINAL: Abdomen soft, non-tender, nondistended. Positive bowel sounds MUSCULOSKELETAL: +2 pitting edema left lower extremities L>R, however better than before NEUROLOGICAL: Awake and alert. Moves all extremity. Normal speech.no focal neurological deficit Procedures Echo 06/08/2016 - Left ventricle: The cavity size was normal. Wall thickness was normal. Systolic function was normal. The estimated ejection fraction was in the range of 55% to 60%. Wall motion was normal; there were no regional wall motion abnormalities. - Mitral valve: Mild regurgitation. - Tricuspid valve: Mild regurgitation. A/P Problem List: (1) C. difficile colitis ICD Code: A04.7 Status: Acute (2) Hypomagnesemia ICD Code: E83.42 Status: Acute (3) GI bleed ICD Code: K92.2 Status: Acute (4) Cervical cancer ICD Code: C53.9 Status: Acute Assessment and Plan This is a follow up on patient came with GI bleed, C. difficile diarrhea, severe debilitating and weakness, lower extremity edema and hypoalbuminemia, patient treated with Flagyl, ER consult obtained but patient refused workup, she complained of severe pain in her back, Yesterday I talked to the M.D. from the insurance company as peer to peer regarding denying her last few days at the hospital, I went through all her condition in details, explained the issue of unsafe discharge knowing her level of weakness as mentioned per the PT evaluation, and her condition of living with her paralyzed son, they still recommended expediting her discharge, so I placed discharge order to go to rehabilitation, and discussed the issue with the case coordinator. It might be an issue for placement, patient may appeal to discharge. A/P: C. difficile diarrhea - Continue Flagyl 500 mg by mouth every 8 hours, Lactinex 1 tablet by mouth 3 times a day. Almost almost completed 14 days, reconsulted GI considering her continuing abdominal pain, KUB ordered no ileus or obstruction, GI recommended 10 more days of Flagyl with continuing PPI once a day Hypomagnesemia, hypokalemia -Monitor level and replace as needed GI bleed - patient has refused EGD and colonoscopy. No further GI bleed. Hemoglobin stable. Patient was on Protonix 40 mg BID we'll change to once daily considering her C. difficile - Dysphagia -improved, status post workup with speech eval, GI followed - Anasarca with lower extremity edema left more than the right- likely due to low albumin. Echo done --> EF 55-60%. Essentially unremarkable Echo. Echo of the lower extremity as well as CT of the abdomen and pelvic has been done which showed anasarca without specific etiology . Patient doing well status post trial of albumin with Lasix, continue monitoring BMP, BNP in a.m. BNP trending down today, switch Lasix iv 2 by mouth - History of cervical cancer - patient to continue follow-up with Dr. Rodriguez at [facility] - Pruritis/ Uticaria - Dermatitis noted. Benadryl PRN. Hydrocortisone cream BID. Full code. DVT prophylaxis SCD, not on chemical prophylaxis due to recent GI bleed, previously discussed with the patient resuming heparin subcutaneous, considering her history of cervical cancer and her risk of thrombosis however she refused Discharge plan: PT eval revealed severe weakness and not able to to walk, recommending rehabilitation, Fraga is evaluated patient and declined. Safe discharge become an issue with patient not able to walk, and lives alone with her paralytic son Lengthy discussion with the MLinnetteD. from the insurance company Dr. Scott , coverage for hospital stay has been stopped, discharge order to rehabilitation has been placed however patient doesn't have coverage for rehabilitation, this become an issue, case management department is following Discharge Planning Discharge plan: PT eval revealed severe weakness and not able to to walk, recommending rehabilitation, Fraga is evaluated patient and declined. Safe discharge become an issue with patient not able to walk, and lives alone with her paralytic son Lengthy discussion with the MFransico. from the insurance company Dr. Scott , coverage for hospital stay has been stopped, discharge order to rehabilitation has been placed however patient doesn't have coverage for rehabilitation, this become an issue, case management department is following Problem Qualifiers (1) GI bleed: Qualified Code: K92.2 - Gastrointestinal hemorrhage, unspecified gastrointestinal hemorrhage type Katie Mishra MD Jun 17, 2016 13:44
[2016-06-17] MEDS ORDERED: POTASSIUM CHLORIDE 10 MEQ CONTROLLED RELEASE TAB PO ONE (14:45)
[2016-06-17 16:00] VITALS: BP 163/86; PULSE 97; RESP 16; TEMP 97.3; O2SAT 93
[2016-06-17 20:00] VITALS: BP 150/83; PULSE 101; RESP 18; TEMP 97.4; O2SAT 97
[2016-06-18 01:00] VITALS: BP 134/78; PULSE 94; RESP 18; TEMP 97.8; O2SAT 94
[2016-06-18] MEDS: MORPHINE SULFATE 4 MG/ML INJ IV PUSH PRN ×4 (01:11→21:30)
[2016-06-18 04:00] VITALS: BP 134/89; PULSE 92; RESP 18; TEMP 97.9; O2SAT 98
[2016-06-18] MEDS: ACETAMINOPHEN/HYDROcodone 325 MG/10 MG TAB PO PRN ×3 (05:52→20:20)
[2016-06-18] MEDS: metroNIDAZOLE 500 MG TAB PO SCH ×3 (05:52→20:21)
[2016-06-18 07:16] LABS: BICARBONATE 35.9 MEQ/L (21.0-32.0); POTASSIUM 3.1 MEQ/L (3.5-5.1)
[2016-06-18 08:00] VITALS: BP 130/82; PULSE 92; RESP 22; TEMP 97.4; O2SAT 96
[2016-06-18] MEDS: PANTOPRAZOLE SOD 40 MG DELAYED RELEASE TAB PO SCH (08:43)
[2016-06-18] MEDS: LACTOBACILLUS ACIDOPHILUS TAB PO SCH ×3 (08:43→20:21)
[2016-06-18] MEDS: CALCIUM CARBONATE 1.25 GM (CA 500 MG) TAB PO SCH ×2 (08:43→20:21)
[2016-06-18] MEDS: FUROSEMIDE 40 MG TAB PO SCH (08:43)
[2016-06-18] MEDS: HYDROCORTISONE 1% CREAM 30 GM TOPICAL SCH ×2 (08:45→20:22)
[2016-06-18 11:45] VITALS: BP 150/75; PULSE 102; RESP 18; TEMP 96.5; O2SAT 98
--- NOTE | 2016-06-18 15:53 | HHI.PR ---
Subjective Remarks Follow for diarrhea Patient still having diarrhea, increased frequency but more thick. Afebrile. Mild abdominal cramping, otherwise no nausea or vomiting. Objective Vitals Vital Signs Date Time Temp Pulse Resp B/P Pulse Ox O2 Delivery O2 Flow Rate FiO2 06/18/16 11:45 96.5 102 18 150/75 98 06/18/16 08:00 97.4 92 22 130/82 96 06/18/16 04:00 97.9 92 18 134/89 98 06/18/16 01:00 97.8 94 18 134/78 94 06/17/16 20:00 97.4 101 18 150/83 97 06/17/16 16:00 97.3 97 16 163/86 93 I/O 06/17/16 06/17/16 06/17/16 06/18/16 06/18/16 06/18/16 07:00 15:00 23:00 07:00 15:00 23:00 Intake Total 480 ml 960 ml 720 ml 480 ml 720 ml 240 ml Balance 480 ml 960 ml 720 ml 480 ml 720 ml 240 ml Intake Oral 480 ml 960 ml 720 ml 480 ml 720 ml 240 ml # Voids 2 4 4 2 2 1 # Bowel Movements 2 1 2 2 1 Result Diagram: 06/17/16 0534 06/18/16 0600 Objective Remarks Not in distress. SKIN: No rashes, warm and dry HEAD: Atraumatic. Normocephalic. EYES: Pupils equal round and reactive. Extraocular motions intact. No scleral icterus. ENT: Nose without bleeding, or drainage, Airway patent. NECK: Trachea midline. Supple CARDIOVASCULAR: Regular rate and rhythm without murmurs, gallops, or rubs. RESPIRATORY: Fair air entry bilaterally. No wheezes, rales, or rhonchi. GASTROINTESTINAL: Abdomen soft, non-tender, nondistended. Positive bowel sounds MUSCULOSKELETAL: 2+ lower extremity edema. NEUROLOGICAL: Awake and alert. Moves all extremity. Normal speech.no focal neurological deficit Procedures Echo 06/08/2016 - Left ventricle: The cavity size was normal. Wall thickness was normal. Systolic function was normal. The estimated ejection fraction was in the range of 55% to 60%. Wall motion was normal; there were no regional wall motion abnormalities. - Mitral valve: Mild regurgitation. - Tricuspid valve: Mild regurgitation. A/P Problem List: (1) C. difficile colitis ICD Code: A04.7 Status: Acute (2) Hypomagnesemia ICD Code: E83.42 Status: Acute (3) GI bleed ICD Code: K92.2 Status: Acute (4) Cervical cancer ICD Code: C53.9 Status: Acute Assessment and Plan This is a follow up on patient came with GI bleed, C. difficile diarrhea, severe debilitating and weakness, lower extremity edema and hypoalbuminemia, patient treated with Flagyl, ER consult obtained but patient refused workup, she complained of severe pain in her back, C. difficile diarrhea - Continue Flagyl 500 mg by mouth every 8 hours, Lactinex 1 tablet by mouth 3 times a day. Almost almost completed 14 days, reconsulted GI considering her continuing abdominal pain, KUB ordered no ileus or obstruction, GI recommended 10 more days of Flagyl with continuing PPI once a day, continue Flagyl as previous. Diarrhea improving. Hypomagnesemia, hypokalemia -Monitor level and replace as needed GI bleed - patient has refused EGD and colonoscopy. No further GI bleed. Hemoglobin stable. Continue Protonix. - Dysphagia -improved, status post workup with speech eval, GI followed - Anasarca with lower extremity edema left more than the right- likely due to low albumin. Echo done --> EF 55-60%. Essentially unremarkable Echo. Echo of the lower extremity as well as CT of the abdomen and pelvic has been done which showed anasarca without specific etiology . Patient doing well status post trial of albumin with Lasix, continue monitoring BMP, BNP in a.m. BNP trending down today, switch Lasix iv 2 by mouth, recheck BMP in the next few days. - History of cervical cancer - patient to continue follow-up with Dr. Rodriguez at [facility] - Pruritis/ Uticaria - Dermatitis noted. Benadryl PRN. Hydrocortisone cream BID. Full code. DVT prophylaxis SCD, not on chemical prophylaxis due to recent GI bleed, previously discussed with the patient resuming heparin subcutaneous, considering her history of cervical cancer and her risk of thrombosis however she refused Discharge Planning PT eval revealed severe weakness and not able to to walk, recommending rehabilitation, Flakito is evaluated patient and declined. Safe discharge become an issue with patient not able to walk, and lives alone with her paralytic son Lengthy discussion with the Anahi from the insurance company Dr. Scott , coverage for hospital stay has been stopped, discharge order to rehabilitation has been placed however patient doesn't have coverage for rehabilitation, this become an issue, case management department is following Problem Qualifiers (1) GI bleed: Qualified Code: K92.2 - Gastrointestinal hemorrhage, unspecified gastrointestinal hemorrhage type Magnus Chavez MD Jun 18, 2016 15:53
[2016-06-18 16:00] VITALS: BP 135/79; PULSE 106; RESP 20; TEMP 97.4; O2SAT 98
[2016-06-18] MEDS ORDERED: POTASSIUM CHLORIDE 10 MEQ CONTROLLED RELEASE TAB PO ONE (16:00)
[2016-06-18 20:00] VITALS: BP 126/64; PULSE 107; RESP 16; TEMP 98.8; O2SAT 95
[2016-06-19] VITALS: BP 124/66; PULSE 107; RESP 16; TEMP 98.3; O2SAT 95
[2016-06-19] MEDS: MORPHINE SULFATE 4 MG/ML INJ IV PUSH PRN ×5 (00:24→22:48)
[2016-06-19] MEDS: ACETAMINOPHEN/HYDROcodone 325 MG/10 MG TAB PO PRN ×4 (03:54→21:22)
[2016-06-19 04:00] VITALS: BP 128/72; PULSE 111; RESP 16; TEMP 98; O2SAT 94
[2016-06-19] MEDS: metroNIDAZOLE 500 MG TAB PO SCH ×3 (04:41→21:22)
--- NOTE | 2016-06-19 09:12 | HHI.PR ---
Subjective Remarks Follow-up for diarrhea No complaints, grumpy this morning. Denies any abdominal pain, no nausea or vomiting. Still having diarrhea, about 4-5 times a day, more formed, soft but not watery. No abdominal cramping. Afebrile. Still with generalized weakness. Objective Vitals Vital Signs Date Time Temp Pulse Resp B/P Pulse Ox O2 Delivery O2 Flow Rate FiO2 06/19/16 04:00 98.0 111 16 128/72 94 06/19/16 00:00 98.3 107 16 124/66 95 06/18/16 20:00 98.8 107 16 126/64 95 06/18/16 16:00 97.4 106 20 135/79 98 06/18/16 11:45 96.5 102 18 150/75 98 I/O 06/18/16 06/18/16 06/18/16 06/19/16 06/19/16 06/19/16 07:00 15:00 23:00 07:00 15:00 23:00 Intake Total 480 ml 720 ml 1320 ml 480 ml Balance 480 ml 720 ml 1320 ml 480 ml Intake Oral 480 ml 720 ml 1320 ml 480 ml # Voids 2 2 4 3 # Bowel Movements 2 2 3 1 Result Diagram: 06/17/16 0534 06/18/16 0600 Objective Remarks Not in distress. SKIN: No rashes, warm and dry HEAD: Atraumatic. Normocephalic. EYES: Pupils equal round and reactive. Extraocular motions intact. No scleral icterus. ENT: Nose without bleeding, or drainage, Airway patent. NECK: Trachea midline. Supple CARDIOVASCULAR: Regular rate and rhythm without murmurs, gallops, or rubs. RESPIRATORY: Fair air entry bilaterally. No wheezes, rales, or rhonchi. GASTROINTESTINAL: Abdomen soft, non-tender, mildly distended, good bowel sounds. MUSCULOSKELETAL: Trace extremity edema. NEUROLOGICAL: Awake and alert. Moves all extremity. Normal speech.no focal neurological deficit Procedures Echo 06/08/2016 - Left ventricle: The cavity size was normal. Wall thickness was normal. Systolic function was normal. The estimated ejection fraction was in the range of 55% to 60%. Wall motion was normal; there were no regional wall motion abnormalities. - Mitral valve: Mild regurgitation. - Tricuspid valve: Mild regurgitation. A/P Problem List: (1) C. difficile colitis ICD Code: A04.7 Status: Acute (2) Hypomagnesemia ICD Code: E83.42 Status: Acute (3) GI bleed ICD Code: K92.2 Status: Acute (4) Cervical cancer ICD Code: C53.9 Status: Acute Assessment and Plan This is a 60-year-old female who came in with GI bleed, C. difficile diarrhea, severe debilitating and weakness, lower extremity edema and hypoalbuminemia, patient treated with Flagyl, ER consult obtained but patient refused workup, she complained of severe pain in her back, C. difficile diarrhea - Continue Flagyl 500 mg by mouth every 8 hours, Lactinex 1 tablet by mouth 3 times a day. Almost almost completed 14 days, reconsulted GI considering her continuing abdominal pain, KUB ordered no ileus or obstruction, GI recommended 10 more days of Flagyl with continuing PPI once a day, continue Flagyl as previous. Diarrhea improving. Finish Flagyl on 06/23/16. Hypomagnesemia, hypokalemia -Monitor level and replace as needed GI bleed - patient has refused EGD and colonoscopy. No further GI bleed. Hemoglobin stable. Continue Protonix. - Dysphagia -improved, status post workup with speech eval, GI followed - Anasarca with lower extremity edema left more than the right- likely due to low albumin. Echo done --> EF 55-60%. Essentially unremarkable Echo. Echo of the lower extremity as well as CT of the abdomen and pelvic has been done which showed anasarca without specific etiology . Patient status post albumin and Lasix, continue BMP continue Lasix, BMP stable, recheck BMP tomorrow. - History of cervical cancer - patient to continue follow-up with Dr. Rodriguez at [facility] - Pruritis/ Uticaria - Dermatitis noted. Benadryl PRN. Hydrocortisone cream BID. Full code. DVT prophylaxis SCD, not on chemical prophylaxis due to recent GI bleed, previously discussed with the patient resuming heparin subcutaneous, considering her history of cervical cancer and her risk of thrombosis however she refused Discharge Planning PT eval revealed severe weakness and not able to to walk, recommending rehabilitation, [facility] is evaluated patient and declined. Safe discharge become an issue with patient not able to walk, and lives alone with her paralytic son Lengthy discussion with the Anahi from the insurance company Dr. Scott , coverage for hospital stay has been stopped, discharge order to rehabilitation has been placed however patient doesn't have coverage for rehabilitation, this become an issue, case management department is following Problem Qualifiers (1) GI bleed: Qualified Code: K92.2 - Gastrointestinal hemorrhage, unspecified gastrointestinal hemorrhage type Magnus Chavez MD Jun 19, 2016 09:12
[2016-06-19] MEDS: FUROSEMIDE 40 MG TAB PO SCH (09:27)
[2016-06-19] MEDS: PANTOPRAZOLE SOD 40 MG DELAYED RELEASE TAB PO SCH (09:27)
[2016-06-19] MEDS: CALCIUM CARBONATE 1.25 GM (CA 500 MG) TAB PO SCH ×2 (09:27→21:22)
[2016-06-19] MEDS: LACTOBACILLUS ACIDOPHILUS TAB PO SCH ×3 (09:27→18:54)
[2016-06-19] MEDS: HYDROCORTISONE 1% CREAM 30 GM TOPICAL SCH ×2 (09:28→21:22)
[2016-06-19] MEDS: Infusaport/Implanted VAD PRN NS Lock Flush IVF (09:30)
[2016-06-19 10:06] VITALS: BP 147/88; PULSE 101; RESP 22; TEMP 97.7; O2SAT 97
[2016-06-19 12:45] VITALS: BP 139/81; PULSE 93; RESP 20; TEMP 97.4; O2SAT 98
[2016-06-19 16:00] VITALS: BP 154/93; PULSE 78; RESP 22; TEMP 97.1; O2SAT 96
[2016-06-19] MEDS: ONDANSETRON HCL 4 MG/2 ML VIAL IV PUSH PRN (18:55)
[2016-06-19 20:00] VITALS: BP 162/83; PULSE 96; RESP 17; TEMP 98.7; O2SAT 98
[2016-06-19] MEDS: diphenhydrAMINE HCL 25 MG CAP PO PRN (22:44)
[2016-06-19] MEDS ORDERED: PROMETHAZINE INJ 25 MG/ML VIAL IV-CENTRAL ONE (23:45)
[2016-06-19] MEDS ORDERED: PROMETHAZINE INJ 25 MG/ML VIAL IV-CENTRAL PRN (23:45)
[2016-06-20] VITALS: BP 150/85; PULSE 98; RESP 17; TEMP 97; O2SAT 97
[2016-06-20 04:00] VITALS: BP 158/86; PULSE 105; RESP 17; TEMP 99.8; O2SAT 95
[2016-06-20] MEDS: metroNIDAZOLE 500 MG TAB PO SCH ×3 (05:46→21:02)
[2016-06-20] MEDS: ACETAMINOPHEN/HYDROcodone 325 MG/10 MG TAB PO PRN ×4 (05:47→19:33)
[2016-06-20 08:00] VITALS: BP_SYST 138; BP_SYST 150; BP_DIAS 85; BP_DIAS 86; PULSE 100; PULSE 72; RESP 18; TEMP 96.5; TEMP 97.4; O2SAT 92; O2SAT 94
[2016-06-20] MEDS: CALCIUM CARBONATE 1.25 GM (CA 500 MG) TAB PO SCH ×2 (08:03→21:02)
[2016-06-20] MEDS: PANTOPRAZOLE SOD 40 MG DELAYED RELEASE TAB PO SCH (08:03)
[2016-06-20] MEDS: LACTOBACILLUS ACIDOPHILUS TAB PO SCH ×3 (08:03→16:09)
[2016-06-20] MEDS: HYDROCORTISONE 1% CREAM 30 GM TOPICAL SCH ×2 (08:04→21:03)
[2016-06-20] MEDS: MORPHINE SULFATE 4 MG/ML INJ IV PUSH PRN ×4 (08:04→21:02)
[2016-06-20] MEDS: Infusaport/Implanted VAD PRN NS Lock Flush IVF (08:08)
[2016-06-20 12:00] VITALS: BP 153/87; PULSE 106; RESP 18; TEMP 98.7; O2SAT 91
--- NOTE | 2016-06-20 15:33 | HHI.PR ---
Subjective Remarks Follow-up for diarrhea Diarrhea more formed, less frequent. Had an episode of nausea and vomiting yesterday with abdominal cramping. Now resolved. No chest pain or shortness of breath. Objective Vitals Vital Signs Date Time Temp Pulse Resp B/P Pulse Ox O2 Delivery O2 Flow Rate FiO2 06/20/16 12:00 98.7 106 18 153/87 91 06/20/16 08:00 97.4 100 18 138/85 92 06/20/16 06:47 16 06/20/16 04:00 99.8 105 17 158/86 95 06/20/16 00:00 97.0 98 17 150/85 97 06/19/16 23:05 16 06/19/16 20:00 98.7 96 17 162/83 98 06/19/16 16:00 97.1 78 22 154/93 96 I/O 06/19/16 06/19/16 06/19/16 06/20/16 06/20/16 06/20/16 07:00 15:00 23:00 07:00 15:00 23:00 Intake Total 480 ml 1080 ml 600 ml 480 ml Balance 480 ml 1080 ml 600 ml 480 ml Intake Oral 480 ml 1080 ml 600 ml 480 ml # Voids 3 3 2 3 # Bowel Movements 1 3 2 1 Result Diagram: 06/17/16 0534 06/18/16 0600 Objective Remarks Not in distress. SKIN: No rashes, warm and dry HEAD: Atraumatic. Normocephalic. EYES: Pupils equal round and reactive. Extraocular motions intact. No scleral icterus. ENT: Nose without bleeding, or drainage, Airway patent. NECK: Trachea midline. Supple CARDIOVASCULAR: Regular rate and rhythm without murmurs, gallops, or rubs. RESPIRATORY: Fair air entry bilaterally. No wheezes, rales, or rhonchi. GASTROINTESTINAL: Abdomen soft, non-tender, mildly distended, good bowel sounds. MUSCULOSKELETAL: Trace extremity edema. NEUROLOGICAL: Awake and alert. Moves all extremity. Normal speech.no focal neurological deficit Procedures Echo 06/08/2016 - Left ventricle: The cavity size was normal. Wall thickness was normal. Systolic function was normal. The estimated ejection fraction was in the range of 55% to 60%. Wall motion was normal; there were no regional wall motion abnormalities. - Mitral valve: Mild regurgitation. - Tricuspid valve: Mild regurgitation. A/P Problem List: (1) C. difficile colitis ICD Code: A04.7 Status: Acute (2) Hypomagnesemia ICD Code: E83.42 Status: Acute (3) GI bleed ICD Code: K92.2 Status: Acute (4) Cervical cancer ICD Code: C53.9 Status: Acute Assessment and Plan This is a 60-year-old female who came in with GI bleed, C. difficile diarrhea, severe debilitating and weakness, lower extremity edema and hypoalbuminemia, patient treated with Flagyl, ER consult obtained but patient refused workup, she complained of severe pain in her back, C. difficile diarrhea - Continue Flagyl 500 mg by mouth every 8 hours, Lactinex 1 tablet by mouth 3 times a day. Almost almost completed 14 days, reconsulted GI considering her continuing abdominal pain, KUB ordered no ileus or obstruction, GI recommended 10 more days of Flagyl with continuing PPI once a day, continue Flagyl as previous. Diarrhea improving. Finish Flagyl on 06/23/16. Hypomagnesemia, hypokalemia -Monitor level and replace as needed, replace potassium today, check magnesium tomorrow. GI bleed - patient has refused EGD and colonoscopy. No further GI bleed. Hemoglobin stable. Continue Protonix. - Dysphagia -improved, status post workup with speech eval, GI followed - Anasarca with lower extremity edema left more than the right- likely due to low albumin. Echo done --> EF 55-60%. Essentially unremarkable Echo. Echo of the lower extremity as well as CT of the abdomen and pelvic has been done which showed anasarca without specific etiology . Patient status post albumin and Lasix, improved, hold Lasix, recheck BMP tomorrow Metabolic alkalosis-likely from diuresis, hold Lasix Nausea and vomiting-resolved, unknown etiology, monitor, Zofran as needed. - History of cervical cancer - patient to continue follow-up with Dr. Rodriguez at [facility] - Pruritis/ Uticaria - Dermatitis noted. Benadryl PRN. Hydrocortisone cream BID. Full code. DVT prophylaxis SCD, not on chemical prophylaxis due to recent GI bleed, previously discussed with the patient resuming heparin subcutaneous, considering her history of cervical cancer and her risk of thrombosis however she refused Discharge Planning PT eval revealed severe weakness and not able to to walk, recommending rehabilitation, [facility] is evaluated patient and declined. Safe discharge become an issue with patient not able to walk, and lives alone with her paralytic son Lengthy discussion with the Anahi from the insurance company Dr. Scott , coverage for hospital stay has been stopped, discharge order to rehabilitation has been placed however patient doesn't have coverage for rehabilitation, this become an issue, case management department is following Problem Qualifiers (1) GI bleed: Qualified Code: K92.2 - Gastrointestinal hemorrhage, unspecified gastrointestinal hemorrhage type Magnus Chavez MD Jun 20, 2016 15:33
[2016-06-20] MEDS ORDERED: POTASSIUM CHLORIDE 10 MEQ CONTROLLED RELEASE TAB PO ONE (15:45)
[2016-06-20 16:00] VITALS: BP 144/82; PULSE 86; RESP 18; TEMP 97.4; O2SAT 94
[2016-06-20 20:00] VITALS: BP 133/83; PULSE 108; RESP 18; TEMP 98.9; O2SAT 95
[2016-06-21] VITALS (7 sets, daily range): BP systolic 135–170; BP diastolic 70–90; PULSE 93–110; RESP 16–20; TEMP 97.4–99.2; O2SAT 94–97
[2016-06-21] MEDS: ACETAMINOPHEN/HYDROcodone 325 MG/10 MG TAB PO PRN ×6 (00:01→22:34)
[2016-06-21] MEDS: MORPHINE SULFATE 4 MG/ML INJ IV PUSH PRN ×6 (00:46→23:23)
[2016-06-21] MEDS: metroNIDAZOLE 500 MG TAB PO SCH ×3 (06:11→22:34)
[2016-06-21 06:50] LABS: BICARBONATE 34.2 MEQ/L (21.0-32.0); MAGNESIUM 1.1 MG/DL (1.5-2.5); POTASSIUM 3.2 MEQ/L (3.5-5.1)
[2016-06-21] MEDS: PANTOPRAZOLE SOD 40 MG DELAYED RELEASE TAB PO SCH (09:02)
[2016-06-21] MEDS: CALCIUM CARBONATE 1.25 GM (CA 500 MG) TAB PO SCH ×2 (09:02→19:50)
[2016-06-21] MEDS: LACTOBACILLUS ACIDOPHILUS TAB PO SCH ×3 (09:02→16:26)
[2016-06-21] MEDS: HYDROCORTISONE 1% CREAM 30 GM TOPICAL SCH (09:03)
[2016-06-21] MEDS: POTASSIUM CHLORIDE 10 MEQ CONTROLLED RELEASE TAB PO SCH ×2 (09:10→19:50)
[2016-06-21] MEDS: MAGNESIUM SULFATE 1 GM PREMIX 100 ML IV SCH ×2 (09:11→10:31)
--- NOTE | 2016-06-21 09:26 | HHI.PR ---
Subjective Remarks Follow-up for diarrhea next Diarrhea improving, more formed, pasty. No abdominal cramping, nausea or vomiting further. Denies any chest pain or shortness of breath. Objective Vitals Vital Signs Date Time Temp Pulse Resp B/P Pulse Ox O2 Delivery O2 Flow Rate FiO2 06/21/16 06:29 16 06/21/16 05:45 18 06/21/16 04:00 97.6 110 16 136/90 95 06/21/16 00:00 97.5 99 16 150/85 97 06/20/16 20:00 98.9 108 18 133/83 95 06/20/16 16:00 97.4 86 18 144/82 94 06/20/16 12:00 98.7 106 18 153/87 91 I/O 06/20/16 06/20/16 06/20/16 06/21/16 06/21/16 06/21/16 07:00 15:00 23:00 07:00 15:00 23:00 Intake Total 480 ml 960 ml 480 ml Balance 480 ml 960 ml 480 ml Intake Oral 480 ml 960 ml 480 ml # Voids 3 3 2 3 # Bowel Movements 1 1 1 1 Result Diagram: 06/17/16 0534 06/21/16 0610 Objective Remarks Not in distress. SKIN: No rashes, warm and dry HEAD: Atraumatic. Normocephalic. EYES: Pupils equal round and reactive. Extraocular motions intact. No scleral icterus. ENT:Airway patent. NECK: Supple neck CARDIOVASCULAR: Regular rate and rhythm without murmurs, gallops, or rubs. RESPIRATORY: Fair air entry bilaterally. No wheezes, rales, or rhonchi. GASTROINTESTINAL: Abdomen soft, non-tender, mildly distended, good bowel sounds. MUSCULOSKELETAL: 2+ edema.-Better NEUROLOGICAL: Awake and alert, oriented 3. Moves all extremity. Normal speech.no focal neurological deficit Grumpy. Procedures Echo 06/08/2016 - Left ventricle: The cavity size was normal. Wall thickness was normal. Systolic function was normal. The estimated ejection fraction was in the range of 55% to 60%. Wall motion was normal; there were no regional wall motion abnormalities. - Mitral valve: Mild regurgitation. - Tricuspid valve: Mild regurgitation. A/P Problem List: (1) C. difficile colitis ICD Code: A04.7 Status: Acute (2) Hypomagnesemia ICD Code: E83.42 Status: Acute (3) GI bleed ICD Code: K92.2 Status: Acute (4) Cervical cancer ICD Code: C53.9 Status: Acute Assessment and Plan This is a 60-year-old female who came in with GI bleed, C. difficile diarrhea, severe debilitating and weakness, lower extremity edema and hypoalbuminemia, patient treated with Flagyl, ER consult obtained but patient refused workup, she complained of severe pain in her back, C. difficile diarrhea - Continue Flagyl 500 mg by mouth every 8 hours, Lactinex 1 tablet by mouth 3 times a day. GI recommended 10 more days of Flagyl with continuing PPI once a day, continue Flagyl as previous. Diarrhea improving. Finish Flagyl on . Hypomagnesemia, hypokalemia -Monitor level and replace as needed, replace potassium today, replace magnesium, recheck magnesium and potassium today. GI bleed - patient has refused EGD and colonoscopy. No further GI bleed. Hemoglobin stable. Continue Protonix. - Dysphagia -improved, status post workup with speech eval, GI followed - Anasarca with lower extremity edema left more than the right- likely due to low albumin. Echo done --> EF 55-60%. Essentially unremarkable Echo. Echo of the lower extremity as well as CT of the abdomen and pelvic has been done which showed anasarca without specific etiology . Patient status post albumin and Lasix, improving, continue Lasix, recheck BMP today and replace potassium as needed. Metabolic alkalosis-likely from diuresis, continue Lasix, monitor. Might need Diamox. Nausea and vomiting-resolved, unknown etiology, monitor, Zofran as needed. - History of cervical cancer - patient to continue follow-up with Dr. Rodriguez at [facility] - Pruritis/ Uticaria - Dermatitis noted. Benadryl PRN. Hydrocortisone cream BID. Full code. DVT prophylaxis SCD, not on chemical prophylaxis due to recent GI bleed, previously discussed with the patient resuming heparin subcutaneous, considering her history of cervical cancer and her risk of thrombosis however she refused Discharge Planning PT eval revealed severe weakness and not able to to walk, recommending rehabilitation, [facility] is evaluated patient and declined. Safe discharge become an issue with patient not able to walk, and lives alone with her paralytic son Lengthy discussion with the Anahi from the insurance company Dr. Scott , coverage for hospital stay has been stopped, discharge order to rehabilitation has been placed however patient doesn't have coverage for rehabilitation, this become an issue, case management department is following Possible discharge in the next few days with home healthcare possible. Problem Qualifiers (1) GI bleed: Qualified Code: K92.2 - Gastrointestinal hemorrhage, unspecified gastrointestinal hemorrhage type Magnus Chavez MD Jun 21, 2016 09:26
[2016-06-21] MEDS: FUROSEMIDE 40 MG TAB PO SCH (13:03)
[2016-06-21] MEDS: diphenhydrAMINE HCL 25 MG CAP PO PRN (13:04)
[2016-06-21 18:01] LABS: MAGNESIUM 1.5 MG/DL (1.5-2.5); POTASSIUM 3.4 MEQ/L (3.5-5.1)
[2016-06-21] MEDS: SODIUM CHLORIDE 0.9% FLUSH 5 ML FLUSH IVF PRN ×2 (19:55→23:23)
[2016-06-22] VITALS: BP 143/91; PULSE 96; RESP 18; TEMP 98.2; O2SAT 96
[2016-06-22 04:56] VITALS: BP_SYST 162; BP_DIAS 92; BP_DIAS 95; PULSE 102; RESP 18; TEMP 98.6; O2SAT 95
[2016-06-22] MEDS: ACETAMINOPHEN/HYDROcodone 325 MG/10 MG TAB PO PRN ×4 (04:59→21:54)
[2016-06-22] MEDS: metroNIDAZOLE 500 MG TAB PO SCH ×3 (05:01→21:54)
[2016-06-22] MEDS: Infusaport/Implanted VAD PRN NS Lock Flush IVF ×2 (05:11→19:35)
[2016-06-22] MEDS: MORPHINE SULFATE 4 MG/ML INJ IV PUSH PRN ×4 (06:14→23:24)
[2016-06-22] MEDS: SODIUM CHLORIDE 0.9% FLUSH 5 ML FLUSH IVF PRN ×2 (06:15→23:24)
[2016-06-22 06:19] LABS: BICARBONATE 32.2 MEQ/L (21.0-32.0); MAGNESIUM 1.2 MG/DL (1.5-2.5); POTASSIUM 3.7 MEQ/L (3.5-5.1)
[2016-06-22 08:00] VITALS: BP 148/87; PULSE 100; RESP 22; TEMP 97.1; O2SAT 97
[2016-06-22] MEDS: FUROSEMIDE 40 MG TAB PO SCH (09:39)
[2016-06-22] MEDS: PANTOPRAZOLE SOD 40 MG DELAYED RELEASE TAB PO SCH (09:39)
[2016-06-22] MEDS: CALCIUM CARBONATE 1.25 GM (CA 500 MG) TAB PO SCH ×2 (09:39→21:54)
[2016-06-22] MEDS: LACTOBACILLUS ACIDOPHILUS TAB PO SCH ×3 (09:39→16:18)
[2016-06-22] MEDS: diphenhydrAMINE HCL 25 MG CAP PO PRN (09:39)
[2016-06-22] MEDS ORDERED: TRANSPORT CHAIR1 MIS (11:18)
--- NOTE | 2016-06-22 11:24 | HHI.PR ---
Subjective Remarks f/u weakness, diarrhea Still with generalized weakness, able to pivot with help and contact guard from bed to chair. Discussed extensively with physical therapy with patient. Patient would need transport her chair. Still with diarrhea but better, improving. No abdominal pain, afebrile. Denies any headache. Objective Vitals Vital Signs Date Time Temp Pulse Resp B/P Pulse Ox O2 Delivery O2 Flow Rate FiO2 06/22/16 08:00 97.1 100 22 148/87 97 06/22/16 04:56 98.6 102 18 162/92 95 162/95 06/22/16 00:00 98.2 96 18 143/91 96 06/21/16 20:00 99.2 95 18 170/74 94 06/21/16 16:00 99.0 100 20 135/72 96 06/21/16 12:00 98.1 93 20 135/70 96 I/O 06/21/16 06/21/16 06/21/16 06/22/16 06/22/16 06/22/16 07:00 15:00 23:00 07:00 15:00 23:00 Intake Total 1180 ml 480 ml 480 ml 1560 ml Balance 1180 ml 480 ml 480 ml 1560 ml Intake Oral 960 ml 480 ml 480 ml 1560 ml IV Total 220 ml # Voids 3 3 2 2 2 # Bowel Movements 1 1 1 2 1 Result Diagram: 06/22/16 0510 Objective Remarks Not in distress. SKIN: No rashes, warm and dry HEAD: Atraumatic. Normocephalic. EYES: Pupils equal round and reactive. Extraocular motions intact. No scleral icterus. ENT:Airway patent. NECK: Supple neck CARDIOVASCULAR: Regular rate and rhythm without murmurs, gallops, or rubs. RESPIRATORY: Fair air entry bilaterally. No wheezes, rales, or rhonchi. GASTROINTESTINAL: Abdomen soft, non-tender, mildly distended, good bowel sounds. MUSCULOSKELETAL: 1+ edema.-Better NEUROLOGICAL: Awake and alert, oriented 3. Moves all extremity. Normal speech.no focal neurological deficit Grumpy. Procedures Echo 06/08/2016 - Left ventricle: The cavity size was normal. Wall thickness was normal. Systolic function was normal. The estimated ejection fraction was in the range of 55% to 60%. Wall motion was normal; there were no regional wall motion abnormalities. - Mitral valve: Mild regurgitation. - Tricuspid valve: Mild regurgitation. A/P Problem List: (1) C. difficile colitis ICD Code: A04.7 Status: Acute (2) Hypomagnesemia ICD Code: E83.42 Status: Acute (3) GI bleed ICD Code: K92.2 Status: Acute (4) Cervical cancer ICD Code: C53.9 Status: Acute Assessment and Plan This is a 60-year-old female who came in with GI bleed, C. difficile diarrhea, severe debilitating and weakness, lower extremity edema and hypoalbuminemia, patient treated with Flagyl, ER consult obtained but patient refused workup, she complained of severe pain in her back, C. difficile diarrhea - Continue Flagyl 500 mg by mouth every 8 hours, Lactinex 1 tablet by mouth 3 times a day. GI recommended 10 more days of Flagyl with continuing PPI once a day, continue Flagyl as previous. Diarrhea improving. Finish Flagyl on . Hypomagnesemia, hypokalemia -Monitor level and replace as needed, potassium is good today but magnesium needs to be replaced. Recheck BMP tomorrow GI bleed - patient has refused EGD and colonoscopy. No further GI bleed. Hemoglobin stable. Continue Protonix. - Dysphagia -improved, status post workup with speech eval, GI followed - Anasarca with lower extremity edema left more than the right- likely due to low albumin. Echo done --> EF 55-60%. Essentially unremarkable Echo. Echo of the lower extremity as well as CT of the abdomen and pelvic has been done which showed anasarca without specific etiology . Patient status post albumin and Lasix, improving, continue Lasix, BMP stable.*Potassium daily, recheck BMP tomorrow. Metabolic alkalosis-likely from diuresis, continue Lasix, monitor. Might need Diamox. Nausea and vomiting-resolved, unknown etiology, monitor, Zofran as needed. - History of cervical cancer - patient to continue follow-up with Dr. Rodriguez at [facility] - Pruritis/ Uticaria - Dermatitis noted. Benadryl PRN. Hydrocortisone cream BID. -Generalized weakness-patient is, very grumpy and cranky. But per dissipated with physical therapy today, discussed extensively with patient in physical therapy. Patient will need to be able to pivot from bed to a transport chair. Discussed with case management, will try to procure transporter chair. This is medically necessary. Patient's house is too small for a wheelchair. Discharge with home health care once okay with physical therapy. Full code. DVT prophylaxis SCD, not on chemical prophylaxis due to recent GI bleed, previously discussed with the patient resuming heparin subcutaneous, considering her history of cervical cancer and her risk of thrombosis however she refused I spent 35 minutes [id number] with the patient or on the boyle discussing the patient's disposition, prognosis and plan of care with his/her caregivers. Over half of time spent was devoted to counseling the patient regarding placement--- and coordinating care with caregivers and case management. Discharge Planning She denied from [facility], no rehabilitation coverage Lengthy discussion with the Anahi from the insurance company Dr. Scott , coverage for hospital stay has been stopped, discharge order to rehabilitation has been placed however patient doesn't have coverage for rehabilitation, this become an issue, case management department is following, discharge with home health care and with transport her chair once better Problem Qualifiers (1) GI bleed: Qualified Code: K92.2 - Gastrointestinal hemorrhage, unspecified gastrointestinal hemorrhage type Magnus Chavez MD Jun 22, 2016 11:24
[2016-06-22] MEDS: MAGNESIUM SULFATE 1 GM PREMIX 100 ML IV SCH ×2 (11:33→12:34)
[2016-06-22] MEDS: POTASSIUM CHLORIDE 20 MEQ CONTROLLED RELEASE TAB PO SCH (11:37)
[2016-06-22 13:14] VITALS: BP 154/91; PULSE 98; RESP 18; TEMP 96; O2SAT 97
[2016-06-22 17:15] VITALS: BP 156/82; PULSE 102; RESP 20; TEMP 99.5; O2SAT 96
[2016-06-22 20:15] VITALS: BP 143/79; PULSE 95; RESP 18; TEMP 98; O2SAT 96
[2016-06-23] VITALS: BP 150/77; PULSE 100; RESP 18; TEMP 98.7; O2SAT 94
[2016-06-23] MEDS: SODIUM CHLORIDE 0.9% FLUSH 5 ML FLUSH IVF PRN (03:13)
[2016-06-23 03:54] LABS: BICARBONATE 34.2 MEQ/L (21.0-32.0); MAGNESIUM 1.4 MG/DL (1.5-2.5); POTASSIUM 3.5 MEQ/L (3.5-5.1)
[2016-06-23 04:00] VITALS: BP 134/79; PULSE 113; RESP 18; TEMP 97.7; O2SAT 94
[2016-06-23] MEDS: metroNIDAZOLE 500 MG TAB PO SCH (05:39)
[2016-06-23] MEDS: ACETAMINOPHEN/HYDROcodone 325 MG/10 MG TAB PO PRN ×4 (05:40→22:58)
[2016-06-23] MEDS: POTASSIUM CHLORIDE 20 MEQ CONTROLLED RELEASE TAB PO SCH (07:52)
[2016-06-23] MEDS: LACTOBACILLUS ACIDOPHILUS TAB PO SCH ×3 (07:52→17:57)
[2016-06-23] MEDS: PANTOPRAZOLE SOD 40 MG DELAYED RELEASE TAB PO SCH (07:52)
[2016-06-23] MEDS: CALCIUM CARBONATE 1.25 GM (CA 500 MG) TAB PO SCH ×2 (07:53→20:13)
[2016-06-23] MEDS: MORPHINE SULFATE 4 MG/ML INJ IV PUSH PRN ×2 (07:53→20:13)
[2016-06-23] MEDS: FUROSEMIDE 40 MG TAB PO SCH (07:53)
[2016-06-23 08:05] VITALS: BP 135/98; PULSE 78; RESP 18; TEMP 98.5; O2SAT 96
[2016-06-23] MEDS: CHOLESTYRAMINE 4 GM PACKET PO SCH ×3 (10:15→22:58)
--- NOTE | 2016-06-23 10:15 | HHI.PR ---
Subjective Remarks Follow-up for C. difficile Still with diarrhea, more loosely, more frequent and high volume. Mild abdominal cramping, no nausea or vomiting. Afebrile. Objective Vitals Vital Signs Date Time Temp Pulse Resp B/P Pulse Ox O2 Delivery O2 Flow Rate FiO2 06/23/16 08:05 98.5 78 18 135/98 96 06/23/16 04:00 97.7 113 18 134/79 94 06/23/16 00:00 98.7 100 18 150/77 94 06/22/16 20:15 98.0 95 18 143/79 96 06/22/16 17:15 99.5 102 20 156/82 96 06/22/16 13:14 96.0 98 18 154/91 97 I/O 06/22/16 06/22/16 06/22/16 06/23/16 06/23/16 06/23/16 07:00 15:00 23:00 07:00 15:00 23:00 Intake Total 480 ml 2400 ml 960 ml 480 ml 600 ml Balance 480 ml 2400 ml 960 ml 480 ml 600 ml Intake Oral 480 ml 2400 ml 960 ml 480 ml 600 ml # Voids 2 5 3 3 2 # Bowel Movements 2 4 2 2 2 Result Diagram: 06/23/16 0315 Objective Remarks Not in distress. SKIN: No rashes, warm and dry HEAD: Atraumatic. Normocephalic. EYES: Pupils equal round and reactive. Extraocular motions intact. No scleral icterus. ENT:Airway patent. NECK: Supple neck CARDIOVASCULAR: Regular rate and rhythm without murmurs, gallops, or rubs. RESPIRATORY: Fair air entry bilaterally. No wheezes, rales, or rhonchi. GASTROINTESTINAL: Abdomen soft, mildly tender, mildly distended, good bowel sounds. MUSCULOSKELETAL: 1+ edema-improving NEUROLOGICAL: Awake and alert, oriented 3. Moves all extremity. Normal speech.no focal neurological deficit Grumpy. Procedures Echo 06/08/2016 - Left ventricle: The cavity size was normal. Wall thickness was normal. Systolic function was normal. The estimated ejection fraction was in the range of 55% to 60%. Wall motion was normal; there were no regional wall motion abnormalities. - Mitral valve: Mild regurgitation. - Tricuspid valve: Mild regurgitation. A/P Problem List: (1) C. difficile colitis ICD Code: A04.7 Status: Acute (2) Hypomagnesemia ICD Code: E83.42 Status: Acute (3) GI bleed ICD Code: K92.2 Status: Acute (4) Cervical cancer ICD Code: C53.9 Status: Acute Assessment and Plan This is a 60-year-old female who came in with GI bleed, C. difficile diarrhea, severe debilitating and weakness, lower extremity edema and hypoalbuminemia, patient treated with Flagyl, ER consult obtained but patient refused workup, she complained of severe pain in her back, C. difficile diarrhea - Continue Flagyl 500 mg by mouth every 8 hours, Lactinex 1 tablet by mouth 3 times a day. GI recommended 10 more days of Flagyl with continuing PPI once a day, continue Flagyl as previous. Diarrhea worsened again. Finish Flagyl on supposedly however still with diarrhea, continue for now, recheck C. difficile. Add Questran. Hypomagnesemia, hypokalemia -Replace magnesium today, recheck BMP tomorrow. GI bleed - patient has refused EGD and colonoscopy. No further GI bleed. Hemoglobin stable. Continue Protonix. - Dysphagia -improved, status post workup with speech eval, GI followed - Anasarca with lower extremity edema left more than the right- likely due to low albumin. Echo done --> EF 55-60%. Essentially unremarkable Echo. Echo of the lower extremity as well as CT of the abdomen and pelvic has been done which showed anasarca without specific etiology . Patient status post albumin and Lasix, improving, continue Lasix, decrease dose. BMP stable. Continue potassium daily Metabolic alkalosis-likely from diuresis, continue Lasix, monitor. Might need Diamox. Nausea and vomiting-resolved, unknown etiology, monitor, Zofran as needed. - History of cervical cancer - patient to continue follow-up with Dr. Rodriguez at [facility] - Pruritis/ Uticaria - Dermatitis noted. Benadryl PRN. Hydrocortisone cream BID. -Generalized weakness-patient is, very grumpy and cranky. But per dissipated with physical therapy today, discussed extensively with patient in physical therapy. Patient will need to be able to pivot from bed to a transport chair. Discussed with case management, will try to procure transporter chair. This is medically necessary. Patient's house is too small for a wheelchair. Discharge with home health care once okay with physical therapy. Full code. DVT prophylaxis SCD, not on chemical prophylaxis due to recent GI bleed, previously discussed with the patient resuming heparin subcutaneous, considering her history of cervical cancer and her risk of thrombosis however she refused Discharge Planning She denied from [place], no rehabilitation coverage Lengthy discussion with the Anahi from the insurance company Dr. Scott , coverage for hospital stay has been stopped, discharge order to rehabilitation has been placed however patient doesn't have coverage for rehabilitation, this become an issue, case management department is following, discharge with home health care and with transport her chair once better Problem Qualifiers (1) GI bleed: Qualified Code: K92.2 - Gastrointestinal hemorrhage, unspecified gastrointestinal hemorrhage type Magnus Chavez MD Jun 23, 2016 10:15
[2016-06-23] MEDS: MAGNESIUM SULFATE 1 GM PREMIX 100 ML IV SCH ×2 (11:15→13:01)
[2016-06-23] MEDS: acetaZOLAMIDE 250 MG TAB PO SCH ×2 (13:00→20:13)
[2016-06-23 14:24] VITALS: BP 163/98; PULSE 108; RESP 18; TEMP 98.1; O2SAT 95
[2016-06-23 15:09] LABS: C. DIFF EPI 027 PRESUMPTIVE NEGATIVE (NEGATIVE); C. DIFF TOXIN PCR NEGATIVE (NEGATIVE)
[2016-06-23 15:45] VITALS: BP 166/96; PULSE 101; RESP 22; TEMP 97.3; O2SAT 97
[2016-06-23] MEDS: LOPERAMIDE HCL 2 MG CAP PO PRN (17:53)
[2016-06-23 20:00] VITALS: BP 132/82; PULSE 110; RESP 18; TEMP 98.2; O2SAT 97
[2016-06-23] MEDS: Infusaport/Implanted VAD PRN NS Lock Flush IVF (20:14)
[2016-06-23] MEDS: diphenhydrAMINE HCL 25 MG CAP PO PRN (23:09)
[2016-06-24] VITALS: BP 153/97; PULSE 98; RESP 18; TEMP 97.9; O2SAT 97
[2016-06-24] MEDS: ONDANSETRON HCL 4 MG/2 ML VIAL IV PUSH PRN ×2 (02:55→23:05)
[2016-06-24] MEDS: ACETAMINOPHEN/HYDROcodone 325 MG/10 MG TAB PO PRN ×5 (02:55→23:14)
[2016-06-24 05:00] VITALS: BP 146/89; PULSE 102; RESP 18; TEMP 98.2; O2SAT 95
[2016-06-24] MEDS: Infusaport/Implanted VAD PRN NS Lock Flush IVF (05:10)
[2016-06-24] MEDS: SODIUM CHLORIDE 0.9% FLUSH 5 ML FLUSH IVF PRN (05:10)
[2016-06-24] MEDS: MORPHINE SULFATE 4 MG/ML INJ IV PUSH PRN ×4 (05:14→20:43)
[2016-06-24] MEDS: CHOLESTYRAMINE 4 GM PACKET PO SCH ×3 (05:14→20:46)
[2016-06-24 05:56] LABS: AUTOMATED NEUTROPHIL # 4.7 TH/MM3 (1.8-7.7); BASOPHIL % 0.5 % (0.0-2.0); EOSINOPHIL # 0.2 TH/MM3 (0-0.4); EOSINOPHIL % 2.9 % (0.0-4.0); HEMATOCRIT 27.3 % (35.0-46.0); HEMO FLAGS DIFF FINAL; LYMPH % 5.3 % (9.0-44.0); LYMPHOCYTE # 0.3 TH/MM3 (1.0-4.8); MEAN CELL VOLUME 103.7 FL (80.0-100.0); MEAN CORPUSCULAR HEMOGLOBIN 34.7 PG (27.0-34.0); MEAN CORPUSCULAR HGB CONC 33.5 % (32.0-36.0); MONO % 9.4 % (0.0-8.0); NEUT % 81.9 % (16.0-70.0); PLATELET COUNT 338 TH/MM3 (150-450); RED BLOOD COUNT 2.64 MIL/MM3 (4.00-5.30); RED CELL DISTRIBUTION WIDTH 15.8 % (11.6-17.2); WHITE BLOOD COUNT 5.7 TH/MM3 (4.0-11.0)
[2016-06-24 06:27] LABS: MAGNESIUM 1.5 MG/DL (1.5-2.5)
[2016-06-24 06:29] LABS: POTASSIUM 2.8 MEQ/L (3.5-5.1)
[2016-06-24] MEDS ORDERED: POTASSIUM CHLORIDE 20 MEQ CONTROLLED RELEASE TAB PO ONE (06:45)
[2016-06-24] MEDS ORDERED: POTASSIUM CHLOR 20 MEQ PREMIX 100 ML IV ONE (06:45)
[2016-06-24] MEDS ORDERED: POTASSIUM CHLORIDE 10 MEQ CONTROLLED RELEASE TAB PO ONE (07:30)
[2016-06-24 08:00] VITALS: BP 142/98; PULSE 96; RESP 16; TEMP 97.4; O2SAT 98
[2016-06-24] MEDS: LACTOBACILLUS ACIDOPHILUS TAB PO SCH ×3 (09:59→18:00)
[2016-06-24] MEDS: PANTOPRAZOLE SOD 40 MG DELAYED RELEASE TAB PO SCH (09:59)
[2016-06-24] MEDS: FUROSEMIDE 20 MG TAB PO SCH (09:59)
[2016-06-24] MEDS: CALCIUM CARBONATE 1.25 GM (CA 500 MG) TAB PO SCH ×2 (09:59→20:46)
[2016-06-24] MEDS: POTASSIUM CHLORIDE 20 MEQ CONTROLLED RELEASE TAB PO SCH (09:59)
[2016-06-24] MEDS: MAGNESIUM SULFATE 1 GM PREMIX 100 ML IV SCH ×2 (10:05→11:00)
--- NOTE | 2016-06-24 11:22 | HHI.PR ---
Subjective Remarks Follow for diarrhea Patient refused to be examined, refused to talk. She says she needs to be changed rightaway, she was rude. She alwasy does this almost everyday. Refuses to cooperate with PT 2 days ago. Refused to talk and be examined when she was eating 3 days ago. Today, Still having diarrhea per RN. Discussed with RN. Pasty, not very frequent. Objective Vitals Vital Signs Date Time Temp Pulse Resp B/P Pulse Ox O2 Delivery O2 Flow Rate FiO2 06/24/16 08:00 97.4 96 16 142/98 98 06/24/16 05:00 98.2 102 18 146/89 95 06/24/16 00:00 97.9 98 18 153/97 97 06/23/16 20:00 98.2 110 18 132/82 97 06/23/16 15:45 97.3 101 22 166/96 97 06/23/16 14:24 98.1 108 18 163/98 95 I/O 06/23/16 06/23/16 06/23/16 06/24/16 06/24/16 06/24/16 07:00 15:00 23:00 07:00 15:00 23:00 Intake Total 480 ml 2400 ml 720 ml 480 ml Balance 480 ml 2400 ml 720 ml 480 ml Intake Oral 480 ml 2400 ml 720 ml 480 ml # Voids 3 6 4 3 # Bowel Movements 2 9 2 Result Diagram: 06/24/16 0520 06/24/16 0520 Objective Remarks Not in distress. SKIN: No rashes, warm and dry HEAD: Atraumatic. Normocephalic. EYES: Pupils equal round and reactive. Extraocular motions intact. No scleral icterus. ENT:Airway patent. NECK: Supple neck CARDIOVASCULAR: Regular rate and rhythm without murmurs, gallops, or rubs. RESPIRATORY: Fair air entry bilaterally. No wheezes, rales, or rhonchi. GASTROINTESTINAL: Abdomen soft, mildly tender, mildly distended, good bowel sounds. MUSCULOSKELETAL: 1+ edema-improving NEUROLOGICAL: Awake and alert, oriented 3. Moves all extremity. Normal speech.no focal neurological deficit Grumpy. Procedures Echo 06/08/2016 - Left ventricle: The cavity size was normal. Wall thickness was normal. Systolic function was normal. The estimated ejection fraction was in the range of 55% to 60%. Wall motion was normal; there were no regional wall motion abnormalities. - Mitral valve: Mild regurgitation. - Tricuspid valve: Mild regurgitation. A/P Problem List: (1) C. difficile colitis ICD Code: A04.7 Status: Acute (2) Hypomagnesemia ICD Code: E83.42 Status: Acute (3) GI bleed ICD Code: K92.2 Status: Acute (4) Cervical cancer ICD Code: C53.9 Status: Acute Assessment and Plan This is a 60-year-old female who came in with GI bleed, C. difficile diarrhea, severe debilitating and weakness, lower extremity edema and hypoalbuminemia, patient treated with Flagyl, ER consult obtained but patient refused workup, she complained of severe pain in her back, C. difficile diarrhea - Continue Flagyl 500 mg by mouth every 8 hours, Lactinex 1 tablet by mouth 3 times a day. GI recommended 10 more days of Flagyl with continuing PPI once a day, continue Flagyl as previous. Diarrhea worsened again. Finish Flagyl on supposedly however still with diarrhea, continue for now, repeat C. difficile negative. Continue Questran, Imodium added. Hypomagnesemia, hypokalemia -Replace magnesium today, replace potassium as well. Recheck BMP later. GI bleed - patient has refused EGD and colonoscopy. No further GI bleed. Hemoglobin stable. Continue Protonix. Add folic acid. - Dysphagia -improved, status post workup with speech eval, GI followed - Anasarca with lower extremity edema left more than the right- likely due to low albumin. Echo done --> EF 55-60%. Essentially unremarkable Echo. Echo of the lower extremity as well as CT of the abdomen and pelvic has been done which showed anasarca without specific etiology . Patient status post albumin and Lasix, improving, continue Lasix, decrease dose. BMP stable. Continue potassium daily Metabolic alkalosis-likely from diuresis, continue Lasix, monitor. Might need Diamox. Nausea and vomiting-resolved, unknown etiology, monitor, Zofran as needed. - History of cervical cancer - patient to continue follow-up with Dr. Rodriguez at [facility] - Pruritis/ Uticaria - Dermatitis noted. Benadryl PRN. Hydrocortisone cream BID. -Generalized weakness-patient is, very grumpy and cranky. But per dissipated with physical therapy today, discussed extensively with patient in physical therapy. Patient will need to be able to pivot from bed to a transport chair. Discussed with case management, will try to procure transporter chair. This is medically necessary. Patient's house is too small for a wheelchair. Discharge with home health care once okay with physical therapy. Full code. DVT prophylaxis SCD, not on chemical prophylaxis due to recent GI bleed, previously discussed with the patient resuming heparin subcutaneous, considering her history of cervical cancer and her risk of thrombosis however she refused Discharge Planning She denied from [place], no rehabilitation coverage Lengthy discussion with the Anahi from the insurance company Dr. Scott , coverage for hospital stay has been stopped, discharge order to rehabilitation has been placed however patient doesn't have coverage for rehabilitation, this become an issue, case management department is following, discharge with home health care and with transport her chair once better Problem Qualifiers (1) GI bleed: Qualified Code: K92.2 - Gastrointestinal hemorrhage, unspecified gastrointestinal hemorrhage type Magnus Chavez MD Jun 24, 2016 11:22
[2016-06-24 12:00] VITALS: BP 161/55; PULSE 93; RESP 16; TEMP 98.4; O2SAT 97
[2016-06-24] MEDS: FOLIC ACID 1 MG TAB PO SCH (14:11)
[2016-06-24 16:00] VITALS: BP 178/105; PULSE 94; RESP 18; TEMP 97.4; O2SAT 98
[2016-06-24 20:00] VITALS: BP 143/80; PULSE 109; RESP 18; TEMP 99.7; O2SAT 94
[2016-06-24 20:07] LABS: BICARBONATE 26.4 MEQ/L (21.0-32.0); MAGNESIUM 1.6 MG/DL (1.5-2.5); POTASSIUM 3.3 MEQ/L (3.5-5.1)
[2016-06-25] MEDS: MORPHINE SULFATE 4 MG/ML INJ IV PUSH PRN ×3 (01:29→18:31)
[2016-06-25] MEDS: diphenhydrAMINE HCL 25 MG CAP PO PRN (01:30)
[2016-06-25 04:00] VITALS: BP 144/76; PULSE 98; RESP 18; TEMP 97.5; O2SAT 97
[2016-06-25] MEDS: CHOLESTYRAMINE 4 GM PACKET PO SCH ×3 (05:51→20:54)
[2016-06-25] MEDS: ACETAMINOPHEN/HYDROcodone 325 MG/10 MG TAB PO PRN ×4 (05:53→20:54)
[2016-06-25 06:55] LABS: MAGNESIUM 1.5 MG/DL (1.5-2.5); POTASSIUM 3.6 MEQ/L (3.5-5.1)
[2016-06-25 08:00] VITALS: BP 148/83; PULSE 105; RESP 18; TEMP 99.2; O2SAT 95
[2016-06-25] MEDS: PANTOPRAZOLE SOD 40 MG DELAYED RELEASE TAB PO SCH (09:51)
[2016-06-25] MEDS: FUROSEMIDE 20 MG TAB PO SCH (09:51)
[2016-06-25] MEDS: FOLIC ACID 1 MG TAB PO SCH (09:51)
[2016-06-25] MEDS: CALCIUM CARBONATE 1.25 GM (CA 500 MG) TAB PO SCH ×2 (09:51→20:53)
[2016-06-25] MEDS: LACTOBACILLUS ACIDOPHILUS TAB PO SCH ×3 (09:51→18:30)
[2016-06-25] MEDS: POTASSIUM CHLORIDE 20 MEQ CONTROLLED RELEASE TAB PO SCH (09:51)
[2016-06-25] MEDS ORDERED: PILL SPLITTER OTHER PRN (10:45)
[2016-06-25] MEDS ORDERED: MAGNESIUM SULFATE 1 GM PREMIX 100 ML IV ONE (11:00)
--- NOTE | 2016-06-25 11:13 | HHI.PR ---
Subjective Remarks f/u diarrhea, htn She is in a better mood today, blood pressure quite elevated in the 140s to 170s , denies any headache, numbness or focal deficits. No chest pain or shortness of breath. Lower extremity edema better. Still with soft stools, lumpy but better, still frequent. Objective Vitals Vital Signs Date Time Temp Pulse Resp B/P Pulse Ox O2 Delivery O2 Flow Rate FiO2 06/25/16 08:00 99.2 105 18 148/83 95 06/25/16 04:00 97.5 98 18 144/76 97 06/24/16 20:00 99.7 109 18 143/80 94 06/24/16 16:00 97.4 94 18 178/105 98 06/24/16 12:00 98.4 93 16 161/55 97 I/O 06/24/16 06/24/16 06/24/16 06/25/16 06/25/16 06/25/16 07:00 15:00 23:00 07:00 15:00 23:00 Intake Total 480 ml 960 ml 960 ml Balance 480 ml 960 ml 960 ml Intake Oral 480 ml 960 ml 960 ml # Voids 3 4 5 # Bowel Movements 1 Result Diagram: 06/24/16 0520 06/25/16 0550 Objective Remarks Not in distress. SKIN: No rashes, warm and dry HEAD: Atraumatic. Normocephalic. EYES: Pupils equal round and reactive. Extraocular motions intact. No scleral icterus. ENT:Airway patent. NECK: Supple neck CARDIOVASCULAR: Regular rate and rhythm without murmurs, gallops, or rubs. RESPIRATORY: Fair air entry bilaterally. No wheezes, rales, or rhonchi. GASTROINTESTINAL: Abdomen soft, mildly tender, mildly distended, good bowel sounds. MUSCULOSKELETAL: 1+ edema-improving, almost trace. NEUROLOGICAL: Awake and alert, oriented 3. Moves all extremity. Normal speech.no focal neurological deficit Grumpy. Procedures Echo 06/08/2016 - Left ventricle: The cavity size was normal. Wall thickness was normal. Systolic function was normal. The estimated ejection fraction was in the range of 55% to 60%. Wall motion was normal; there were no regional wall motion abnormalities. - Mitral valve: Mild regurgitation. - Tricuspid valve: Mild regurgitation. A/P Problem List: (1) C. difficile colitis ICD Code: A04.7 Status: Acute (2) Hypomagnesemia ICD Code: E83.42 Status: Acute (3) GI bleed ICD Code: K92.2 Status: Acute (4) Cervical cancer ICD Code: C53.9 Status: Acute Assessment and Plan This is a 60-year-old female who came in with GI bleed, C. difficile diarrhea, severe debilitating and weakness, lower extremity edema and hypoalbuminemia, patient treated with Flagyl, ER consult obtained but patient refused workup, she complained of severe pain in her back, C. difficile diarrhea - Continue Flagyl 500 mg by mouth every 8 hours, Lactinex 1 tablet by mouth 3 times a day. GI recommended 10 more days of Flagyl with continuing PPI once a day, continue Flagyl as previous. Diarrhea worsened again. Finished Flagyl on 06/23/16 supposedly however still with diarrhea, repeat C. difficile negative. Continue Questran, Imodium added. Hypomagnesemia, hypokalemia -Replace magnesium. Hypertension, uncontrolled-start metoprolol GI bleed - patient has refused EGD and colonoscopy. No further GI bleed. Hemoglobin stable. Continue Protonix. Continue folic acid. - Dysphagia -improved, status post workup with speech eval, GI followed - Anasarca with lower extremity edema left more than the right- likely due to low albumin. Echo done --> EF 55-60%. Essentially unremarkable Echo. Echo of the lower extremity as well as CT of the abdomen and pelvic has been done which showed anasarca without specific etiology . Patient status post albumin and Lasix, improving, continue Lasix orally daily. BMP stable. Continue potassium daily Metabolic alkalosis-likely from diuresis, continue Lasix, monitor. Recheck BMP in 2 days, resolved. Nausea and vomiting-resolved, unknown etiology, monitor, Zofran as needed. - History of cervical cancer - patient to continue follow-up with Dr. Rodriguez at [facility] - Pruritis/ Uticaria - Dermatitis noted. Benadryl PRN. Hydrocortisone cream BID. -Generalized weakness-patient is, very grumpy and cranky. But per dissipated with physical therapy today, discussed extensively with patient in physical therapy. Patient will need to be able to pivot from bed to a transport chair. Discussed with case management, will try to procure transporter chair. This is medically necessary. Patient's house is too small for a wheelchair. Discharge with home health care once okay with physical therapy. Full code. DVT prophylaxis SCD, not on chemical prophylaxis due to recent GI bleed, previously discussed with the patient resuming heparin subcutaneous, considering her history of cervical cancer and her risk of thrombosis however she refused Discharge Planning She denied from [place], no rehabilitation coverage Lengthy discussion with the Anahi from the insurance company Dr. Scott , coverage for hospital stay has been stopped, discharge order to rehabilitation has been placed however patient doesn't have coverage for rehabilitation, this become an issue, case management department is following, discharge with home health care and with transport her chair once better Problem Qualifiers (1) GI bleed: Qualified Code: K92.2 - Gastrointestinal hemorrhage, unspecified gastrointestinal hemorrhage type Magnus Chavez MD Jun 25, 2016 11:13
[2016-06-25 12:00] VITALS: BP 145/81; PULSE 97; RESP 16; TEMP 98.6; O2SAT 94
[2016-06-25] MEDS: METOPROLOL TARTRATE 25 MG TAB PO SCH ×2 (13:49→20:57)
[2016-06-25 16:00] VITALS: BP 161/81; PULSE 86; RESP 16; TEMP 99.8; O2SAT 98
[2016-06-25] MEDS: LOPERAMIDE HCL 2 MG CAP PO PRN (18:30)
[2016-06-25 20:00] VITALS: BP 136/59; PULSE 79; RESP 18; TEMP 98.2; O2SAT 96
[2016-06-26] VITALS: BP 130/65; PULSE 70; RESP 17; TEMP 96.7; O2SAT 98
[2016-06-26] MEDS: diphenhydrAMINE HCL 25 MG CAP PO PRN ×3 (00:34→23:30)
[2016-06-26 04:00] VITALS: BP 145/72; PULSE 79; RESP 18; TEMP 98.8; O2SAT 98
[2016-06-26] MEDS: ONDANSETRON HCL 4 MG/2 ML VIAL IV PUSH PRN (04:56)
[2016-06-26] MEDS: ACETAMINOPHEN/HYDROcodone 325 MG/10 MG TAB PO PRN ×4 (04:56→21:11)
[2016-06-26] MEDS: CHOLESTYRAMINE 4 GM PACKET PO SCH ×3 (04:57→21:20)
[2016-06-26 07:30] VITALS: BP 146/85; PULSE 80; RESP 20; TEMP 98.5; O2SAT 96
[2016-06-26] MEDS: MORPHINE SULFATE 4 MG/ML INJ IV PUSH PRN ×4 (08:16→23:18)
[2016-06-26] MEDS: METOPROLOL TARTRATE 25 MG TAB PO SCH ×2 (08:18→21:11)
[2016-06-26] MEDS: FUROSEMIDE 20 MG TAB PO SCH (08:18)
[2016-06-26] MEDS: PANTOPRAZOLE SOD 40 MG DELAYED RELEASE TAB PO SCH (08:19)
[2016-06-26] MEDS: CALCIUM CARBONATE 1.25 GM (CA 500 MG) TAB PO SCH ×2 (08:19→21:11)
[2016-06-26] MEDS: POTASSIUM CHLORIDE 20 MEQ CONTROLLED RELEASE TAB PO SCH (08:20)
[2016-06-26] MEDS: FOLIC ACID 1 MG TAB PO SCH (08:20)
[2016-06-26] MEDS: LACTOBACILLUS ACIDOPHILUS TAB PO SCH ×3 (08:21→17:45)
[2016-06-26] MEDS: Infusaport/Implanted VAD PRN NS Lock Flush IVF (08:21)
--- NOTE | 2016-06-26 08:47 | HHI.PR ---
Subjective Remarks Follow-up for diarrhea Per patient, worsening diarrhea, more frequent. Comminuted more loose than yesterday. No chest pain, no shortness of breath, no urinary symptoms. Mild cramping when having diarrhea. Objective Vitals Vital Signs Date Time Temp Pulse Resp B/P Pulse Ox O2 Delivery O2 Flow Rate FiO2 06/26/16 04:00 98.8 79 18 145/72 98 06/26/16 00:00 96.7 70 17 130/65 98 06/25/16 20:00 98.2 79 18 136/59 96 06/25/16 16:00 99.8 86 16 161/81 98 06/25/16 12:00 98.6 97 16 145/81 94 I/O 06/25/16 06/25/16 06/25/16 06/26/16 06/26/16 06/26/16 07:00 15:00 23:00 07:00 15:00 23:00 Intake Total 960 ml 390 ml 720 ml Output Total 4 ml Balance 960 ml -4 ml 390 ml 720 ml Intake Oral 960 ml 240 ml 720 ml IV Total 150 ml Output Urine Total 4 ml # Voids 5 2 1 # Bowel Movements 1 2 2 3 Result Diagram: 06/24/16 0520 06/25/16 0550 Objective Remarks Not in distress. SKIN: No rashes, warm and dry HEAD: Atraumatic. Normocephalic. EYES: Pupils equal round and reactive. Extraocular motions intact. No scleral icterus. ENT:Airway patent. NECK: Supple neck CARDIOVASCULAR: Regular rate and rhythm without murmurs, gallops, or rubs. RESPIRATORY: Fair air entry bilaterally. No wheezes, rales, or rhonchi. GASTROINTESTINAL: Abdomen soft, mildly tender, mildly distended, good bowel sounds. MUSCULOSKELETAL: Trace edema NEUROLOGICAL: Awake and alert, oriented 3. Moves all extremity. Normal speech.no focal neurological deficit Grumpy. Procedures Echo 06/08/2016 - Left ventricle: The cavity size was normal. Wall thickness was normal. Systolic function was normal. The estimated ejection fraction was in the range of 55% to 60%. Wall motion was normal; there were no regional wall motion abnormalities. - Mitral valve: Mild regurgitation. - Tricuspid valve: Mild regurgitation. A/P Problem List: (1) C. difficile colitis ICD Code: A04.7 Status: Acute (2) Hypomagnesemia ICD Code: E83.42 Status: Acute (3) GI bleed ICD Code: K92.2 Status: Acute (4) Cervical cancer ICD Code: C53.9 Status: Acute Assessment and Plan This is a 60-year-old female who came in with GI bleed, C. difficile diarrhea, severe debilitating and weakness, lower extremity edema and hypoalbuminemia, patient treated with Flagyl, ER consult obtained but patient refused workup, she complained of severe pain in her back, C. difficile diarrhea - Lactinex 1 tablet by mouth 3 times a day. . Finished Flagyl on 06/23/16 supposedly however still with diarrhea, and worse, repeat C. difficile negative. Continue Questran, increase Imodium added. Check stools for culture , stool WBC, Shigella, Campylobacter, etc. recheck CBC. Hypomagnesemia, hypokalemia -Replace magnesium. Recheck BMP. Hypertension, uncontrolled- continue mechanical, monitor. GI bleed - patient has refused EGD and colonoscopy. No further GI bleed. Hemoglobin stable. Continue Protonix. Continue folic acid. - Dysphagia -improved, status post workup with speech eval, GI followed - Anasarca with lower extremity edema left more than the right- likely due to low albumin. Echo done --> EF 55-60%. Essentially unremarkable Echo. Echo of the lower extremity as well as CT of the abdomen and pelvic has been done which showed anasarca without specific etiology . Patient status post albumin and Lasix, improving, continue Lasix orally daily. BMP stable. Continue potassium daily Metabolic alkalosis-likely from diuresis, continue Lasix, monitor. Recheck BMP in 2 days, resolved. Nausea and vomiting-resolved, unknown etiology, monitor, Zofran as needed. - History of cervical cancer - patient to continue follow-up with Dr. Rodriguez at [facility] - Pruritis/ Uticaria - Dermatitis noted. Benadryl PRN. Hydrocortisone cream BID. -Generalized weakness-patient is, very grumpy and cranky. But per dissipated with physical therapy today, discussed extensively with patient in physical therapy. Patient will need to be able to pivot from bed to a transport chair. Discussed with case management, will try to procure transporter chair. This is medically necessary. Patient's house is too small for a wheelchair. Discharge with home health care once okay with physical therapy. Full code. DVT prophylaxis SCD, not on chemical prophylaxis due to recent GI bleed, previously discussed with the patient resuming heparin subcutaneous, considering her history of cervical cancer and her risk of thrombosis however she refused Discharge Planning She denied from [place], no rehabilitation coverage Lengthy discussion with the Anahi from the insurance company Dr. Scott , coverage for hospital stay has been stopped, discharge order to rehabilitation has been placed however patient doesn't have coverage for rehabilitation, this become an issue, case management department is following, discharge with home health care and with transport her chair once better Problem Qualifiers (1) GI bleed: Qualified Code: K92.2 - Gastrointestinal hemorrhage, unspecified gastrointestinal hemorrhage type Magnus Chavez MD Jun 26, 2016 08:47
[2016-06-26] MEDS ORDERED: LOPERAMIDE HCL 2 MG CAP PO PRN (10:00)
[2016-06-26] MEDS: DIPHENOXYLATE/ATROPINE 2.5 MG/0.025 MG/5 ML CUP PO SCH ×3 (10:30→17:45)
[2016-06-26 11:00] VITALS: BP 137/83; PULSE 74; RESP 20; TEMP 96.5; O2SAT 99
[2016-06-26 15:30] VITALS: BP 124/69; PULSE 73; RESP 20; TEMP 98.5; O2SAT 99
[2016-06-26 20:00] VITALS: BP 143/81; PULSE 84; RESP 17; TEMP 98.1; O2SAT 98
[2016-06-27] VITALS: BP 131/78; PULSE 80; RESP 16; TEMP 98.2; O2SAT 97
[2016-06-27] MEDS: ACETAMINOPHEN/HYDROcodone 325 MG/10 MG TAB PO PRN ×5 (02:25→22:55)
[2016-06-27 04:00] VITALS: BP 141/73; PULSE 74; RESP 17; TEMP 97.8; O2SAT 99
[2016-06-27] MEDS: CHOLESTYRAMINE 4 GM PACKET PO SCH ×3 (04:46→23:03)
[2016-06-27] MEDS: MORPHINE SULFATE 4 MG/ML INJ IV PUSH PRN ×3 (05:33→19:48)
[2016-06-27 07:47] LABS: AUTOMATED NEUTROPHIL # 3.5 TH/MM3 (1.8-7.7); BASOPHIL % 0.8 % (0.0-2.0); EOSINOPHIL # 0.2 TH/MM3 (0-0.4); EOSINOPHIL % 4.5 % (0.0-4.0); HEMATOCRIT 25.5 % (35.0-46.0); HEMO FLAGS DIFF FINAL; LYMPH % 6.5 % (9.0-44.0); LYMPHOCYTE # 0.3 TH/MM3 (1.0-4.8); MEAN CELL VOLUME 101.5 FL (80.0-100.0); MEAN CORPUSCULAR HEMOGLOBIN 34.2 PG (27.0-34.0); MEAN CORPUSCULAR HGB CONC 33.7 % (32.0-36.0); MONO % 13.3 % (0.0-8.0); NEUT % 74.9 % (16.0-70.0); PLATELET COUNT 324 TH/MM3 (150-450); RED BLOOD COUNT 2.51 MIL/MM3 (4.00-5.30); RED CELL DISTRIBUTION WIDTH 16.2 % (11.6-17.2); WHITE BLOOD COUNT 4.7 TH/MM3 (4.0-11.0)
[2016-06-27 07:56] LABS: MAGNESIUM 1.2 MG/DL (1.5-2.5); POTASSIUM 3.5 MEQ/L (3.5-5.1)
[2016-06-27 08:00] VITALS: BP 141/82; PULSE 75; RESP 16; TEMP 98.5; O2SAT 97
[2016-06-27] MEDS: FOLIC ACID 1 MG TAB PO SCH (08:00)
[2016-06-27] MEDS: POTASSIUM CHLORIDE 20 MEQ CONTROLLED RELEASE TAB PO SCH (08:00)
[2016-06-27] MEDS: CALCIUM CARBONATE 1.25 GM (CA 500 MG) TAB PO SCH ×2 (08:00→19:48)
[2016-06-27] MEDS: FUROSEMIDE 20 MG TAB PO SCH (08:00)
[2016-06-27] MEDS: LACTOBACILLUS ACIDOPHILUS TAB PO SCH ×3 (08:01→18:37)
[2016-06-27] MEDS: PANTOPRAZOLE SOD 40 MG DELAYED RELEASE TAB PO SCH (08:01)
[2016-06-27] MEDS: DIPHENOXYLATE/ATROPINE 2.5 MG/0.025 MG/5 ML CUP PO SCH ×3 (08:01→18:00)
[2016-06-27] MEDS: METOPROLOL TARTRATE 25 MG TAB PO SCH ×2 (08:01→19:48)
[2016-06-27] MEDS: diphenhydrAMINE HCL 25 MG CAP PO PRN (09:00)
--- NOTE | 2016-06-27 10:18 | HHI.PR ---
Subjective Remarks Follow for diarrhea Patient was able to give stool sample today, no abdominal cramping, still having loose diarrhea, more formed today but still frequent. No fever or chills. Lower extremity edema better. Objective Vitals Vital Signs Date Time Temp Pulse Resp B/P Pulse Ox O2 Delivery O2 Flow Rate FiO2 06/27/16 08:00 98.5 75 16 141/82 97 Manual Cuff/Auscultation 06/27/16 04:00 97.8 74 17 141/73 99 06/27/16 00:00 98.2 80 16 131/78 97 06/26/16 20:00 98.1 84 17 143/81 98 06/26/16 15:30 98.5 73 20 124/69 99 06/26/16 11:00 96.5 74 20 137/83 99 I/O 06/26/16 06/26/16 06/26/16 06/27/16 06/27/16 06/27/16 07:00 15:00 23:00 07:00 15:00 23:00 Intake Total 720 ml 480 ml 480 ml 480 ml Balance 720 ml 480 ml 480 ml 480 ml Intake Oral 720 ml 480 ml 480 ml 480 ml IV Total 0 ml # Voids 1 2 1 3 2 # Bowel Movements 3 2 2 Result Diagram: 06/27/16 0530 06/27/16 0530 Objective Remarks Not in distress. SKIN: No rashes, warm and dry HEAD: Atraumatic. Normocephalic. EYES: Pupils equal round and reactive. Extraocular motions intact. No scleral icterus. ENT:Airway patent. NECK: Supple neck CARDIOVASCULAR: Regular rate and rhythm without murmurs, gallops, or rubs. RESPIRATORY: Fair air entry bilaterally. No wheezes, rales, or rhonchi. GASTROINTESTINAL: Abdomen soft, mildly tender, mildly distended, good bowel sounds. MUSCULOSKELETAL: Trace edema NEUROLOGICAL: Awake and alert, oriented 3. Moves all extremity. Normal speech.no focal neurological deficit Grumpy. Procedures Echo 06/08/2016 - Left ventricle: The cavity size was normal. Wall thickness was normal. Systolic function was normal. The estimated ejection fraction was in the range of 55% to 60%. Wall motion was normal; there were no regional wall motion abnormalities. - Mitral valve: Mild regurgitation. - Tricuspid valve: Mild regurgitation. A/P Problem List: (1) C. difficile colitis ICD Code: A04.7 Status: Acute (2) Hypomagnesemia ICD Code: E83.42 Status: Acute (3) GI bleed ICD Code: K92.2 Status: Acute (4) Cervical cancer ICD Code: C53.9 Status: Acute Assessment and Plan This is a 60-year-old female who came in with GI bleed, C. difficile diarrhea, severe debilitating and weakness, lower extremity edema and hypoalbuminemia, patient treated with Flagyl, ER consult obtained but patient refused workup, she complained of severe pain in her back, C. difficile diarrhea - Lactinex 1 tablet by mouth 3 times a day. . Finished Flagyl on 06/23/16 supposedly however still with diarrhea, and worse, repeat C. difficile negative. Continue Questran, Imodium and Lomotil. Follow-up stools for culture , stool WBC, Shigella, Campylobacter, etc. no leukocytosis. Discussed with patient, still refusing EGD or colonoscopy. Hence there is no point to consult GI. Severe hypomagnesemia- -Replace magnesium. Recheck BMP and magnesium tomorrow. Hypertension, uncontrolled- continue mechanical, monitor. GI bleed - patient has refused EGD and colonoscopy. No further GI bleed. Hemoglobin stable. Continue Protonix. Continue folic acid. - Dysphagia -improved, status post workup with speech eval, GI followed - Anasarca with lower extremity edema left more than the right- likely due to low albumin. Echo done --> EF 55-60%. Essentially unremarkable Echo. Echo of the lower extremity as well as CT of the abdomen and pelvic has been done which showed anasarca without specific etiology . Continue low-dose Lasix daily. Monitor BMP. Metabolic alkalosis-likely from diuresis, resolved, continue Lasix Nausea and vomiting-resolved, unknown etiology, monitor, Zofran as needed. - History of cervical cancer - patient to continue follow-up with Dr. Rodriguez at [facility] - Pruritis/ Uticaria - Dermatitis noted. Benadryl PRN. Hydrocortisone cream BID. -Generalized weakness-patient is, very grumpy and cranky. But per dissipated with physical therapy today, discussed extensively with patient in physical therapy. Patient will need to be able to pivot from bed to a transport chair. Discussed with case management, will try to procure transporter chair. This is medically necessary. Patient's house is too small for a wheelchair. Discharge with home health care once okay with physical therapy. Full code. DVT prophylaxis SCD, not on chemical prophylaxis due to recent GI bleed, previously discussed with the patient resuming heparin subcutaneous, considering her history of cervical cancer and her risk of thrombosis however she refused Discharge Planning She denied from [employer], no rehabilitation coverage Lengthy discussion with the Anahi from the insurance company Dr. Scott , coverage for hospital stay has been stopped, discharge order to rehabilitation has been placed however patient doesn't have coverage for rehabilitation, this become an issue, case management department is following, discharge with home health care and with transport her chair once better Problem Qualifiers (1) GI bleed: Qualified Code: K92.2 - Gastrointestinal hemorrhage, unspecified gastrointestinal hemorrhage type Magnus Chavez MD Jun 27, 2016 10:18
[2016-06-27] MEDS: MAGNESIUM SULFATE 1 GM PREMIX 100 ML IV SCH ×2 (10:44→11:57)
[2016-06-27 12:00] VITALS: BP 138/74; PULSE 82; RESP 14; TEMP 98.3; O2SAT 96
[2016-06-27 16:00] VITALS: BP 130/80; PULSE 84; RESP 16; TEMP 98; O2SAT 95
[2016-06-27] MEDS ORDERED: DIPHENOXYLATE/ATROPINE 2.5 MG/0.025 MG TAB PO ONE (18:30)
[2016-06-27 20:00] VITALS: BP 160/88; PULSE 95; RESP 17; TEMP 98.8; O2SAT 94
[2016-06-28] VITALS (7 sets, daily range): BP systolic 128–169; BP diastolic 67–86; PULSE 76–86; RESP 16–20; TEMP 97.5–98.9; O2SAT 95–98
[2016-06-28] MEDS: MORPHINE SULFATE 4 MG/ML INJ IV PUSH PRN ×5 (00:36→21:36)
[2016-06-28] MEDS: CHOLESTYRAMINE 4 GM PACKET PO SCH ×3 (04:31→20:39)
[2016-06-28] MEDS: ACETAMINOPHEN/HYDROcodone 325 MG/10 MG TAB PO PRN ×4 (05:34→20:39)
--- NOTE | 2016-06-28 10:04 | HHI.PR ---
Subjective Remarks Follow-up for diarrhea Patient still having diarrhea, on and off, sometimes more for sometimes more loose, still loose but a bit better than yesterday, still frequent. No nausea or vomiting. Not in a good mood today, almost refused to be seen. Not short of breath, edema is better. Objective Vitals Vital Signs Date Time Temp Pulse Resp B/P Pulse Ox O2 Delivery O2 Flow Rate FiO2 06/28/16 08:00 98.2 79 20 130/68 98 06/28/16 04:00 97.5 76 16 128/67 95 06/28/16 00:00 98.2 80 16 157/80 98 06/27/16 20:00 98.8 95 17 160/88 94 06/27/16 16:00 98.0 84 16 130/80 95 06/27/16 12:00 98.3 82 14 138/74 96 I/O 06/27/16 06/27/16 06/27/16 06/28/16 06/28/16 06/28/16 07:00 15:00 23:00 07:00 15:00 23:00 Intake Total 480 ml 600 ml 720 ml 480 ml Balance 480 ml 600 ml 720 ml 480 ml Intake Oral 480 ml 600 ml 720 ml 480 ml # Voids 3 3 3 2 # Bowel Movements 3 2 Result Diagram: 06/27/16 0530 06/27/16 0530 Objective Remarks Not in distress. SKIN: No rashes, warm and dry HEAD: Atraumatic. Normocephalic. EYES: Pupils equal round and reactive. Extraocular motions intact. No scleral icterus. ENT:Airway patent. NECK: Supple neck CARDIOVASCULAR: Regular rate and rhythm without murmurs, gallops, or rubs. RESPIRATORY: Fair air entry bilaterally. No wheezes, rales, or rhonchi. GASTROINTESTINAL: Abdomen soft, mildly tender, mildly distended, good bowel sounds. MUSCULOSKELETAL: Trace edema NEUROLOGICAL: Awake and alert, oriented 3. Moves all extremity. Normal speech.no focal neurological deficit Grumpy. Procedures Echo 06/08/2016 - Left ventricle: The cavity size was normal. Wall thickness was normal. Systolic function was normal. The estimated ejection fraction was in the range of 55% to 60%. Wall motion was normal; there were no regional wall motion abnormalities. - Mitral valve: Mild regurgitation. - Tricuspid valve: Mild regurgitation. A/P Problem List: (1) C. difficile colitis ICD Code: A04.7 Status: Acute (2) Hypomagnesemia ICD Code: E83.42 Status: Acute (3) GI bleed ICD Code: K92.2 Status: Acute (4) Cervical cancer ICD Code: C53.9 Status: Acute Assessment and Plan This is a 60-year-old female who came in with GI bleed, C. difficile diarrhea, severe debilitating and weakness, lower extremity edema and hypoalbuminemia, patient treated with Flagyl, ER consult obtained but patient refused workup, she complained of severe pain in her back, C. difficile diarrhea - Lactinex 1 tablet by mouth 3 times a day. . Finished Flagyl on 06/23/16 supposedly however still with diarrhea, and worse, repeat C. difficile negative. Continue Questran, Imodium and Lomotil. Diarrhea-still not resolved. Stool eosinophils negative, stool WBCs negative, rotavirus negative. The rest of the tests were not performed due to a protocol. Discussed with microbiology, we can resend that today and they will perform the tests. Patient is immunocompromised because of history of cervical and lung cancer. These tests needs to be checked. GI not consulted, patient refusing EGD and colonoscopy from the very start. If patient agrees, may reconsult GI. Resend stool for testing today Severe hypomagnesemia-recheck BMP and magnesium tomorrow Hypertension, uncontrolled- continue metoprolol, better. GI bleed - patient has refused EGD and colonoscopy. No further GI bleed. Hemoglobin stable. Continue Protonix. Continue folic acid. Refused EGD and colonoscopy previously - Dysphagia -improved, status post workup with speech eval - Anasarca with lower extremity edema left more than the right- likely due to low albumin. Echo done --> EF 55-60%. Essentially unremarkable Echo. Echo of the lower extremity as well as CT of the abdomen and pelvic has been done which showed anasarca without specific etiology . Continue low-dose Lasix daily. Recheck BMP tomorrow Metabolic alkalosis-likely from diuresis, resolved, continue Lasix Nausea and vomiting-resolved, unknown etiology, monitor, Zofran as needed. - History of cervical cancer - patient to continue follow-up with Dr. Rodriguez at [facility] - Pruritis/ Uticaria - Dermatitis noted. Benadryl PRN. Hydrocortisone cream BID. -History of uterine and lung wachcy-[id number] with as outpatient -Generalized weakness-patient is, very grumpy and cranky. But per dissipated with physical therapy today, discussed extensively with patient in physical therapy. Patient will need to be able to pivot from bed to a transport chair. Discussed with case management, will try to procure transporter chair. This is medically necessary. Patient's house is too small for a wheelchair. Discharge with home health care once okay with physical therapy. Full code. DVT prophylaxis SCD, not on chemical prophylaxis due to recent GI bleed, previously discussed with the patient resuming heparin subcutaneous, considering her history of cervical cancer and her risk of thrombosis however she refused Discharge Planning She was denied from [employer], no rehabilitation coverage Lengthy discussion with the Anahi from the insurance company Dr. Scott , coverage for hospital stay has been stopped, discharge order to rehabilitation has been placed however patient doesn't have coverage for rehabilitation,case management department is following, discharge with home health care and with transport her chair once better Problem Qualifiers (1) GI bleed: Qualified Code: K92.2 - Gastrointestinal hemorrhage, unspecified gastrointestinal hemorrhage type Magnus Chavez MD Jun 28, 2016 10:04
[2016-06-28] MEDS: FOLIC ACID 1 MG TAB PO SCH (10:28)
[2016-06-28] MEDS: LACTOBACILLUS ACIDOPHILUS TAB PO SCH ×3 (10:28→17:31)
[2016-06-28] MEDS: DIPHENOXYLATE/ATROPINE 2.5 MG/0.025 MG/5 ML CUP PO SCH ×3 (10:28→17:31)
[2016-06-28] MEDS: POTASSIUM CHLORIDE 20 MEQ CONTROLLED RELEASE TAB PO SCH (10:28)
[2016-06-28] MEDS: FUROSEMIDE 20 MG TAB PO SCH (10:29)
[2016-06-28] MEDS: METOPROLOL TARTRATE 25 MG TAB PO SCH ×2 (10:29→20:39)
[2016-06-28] MEDS: PANTOPRAZOLE SOD 40 MG DELAYED RELEASE TAB PO SCH (10:29)
[2016-06-28] MEDS: CALCIUM CARBONATE 1.25 GM (CA 500 MG) TAB PO SCH ×2 (10:29→20:39)
[2016-06-29] VITALS: BP 122/69; PULSE 79; RESP 16; TEMP 98.9; O2SAT 96
[2016-06-29 04:00] VITALS: BP 148/78; PULSE 80; RESP 16; TEMP 98.7; O2SAT 97
[2016-06-29] MEDS: ACETAMINOPHEN/HYDROcodone 325 MG/10 MG TAB PO PRN ×4 (05:07→22:56)
[2016-06-29] MEDS: CHOLESTYRAMINE 4 GM PACKET PO SCH ×3 (05:51→22:55)
[2016-06-29] MEDS: MORPHINE SULFATE 4 MG/ML INJ IV PUSH PRN ×3 (06:13→18:14)
[2016-06-29] MEDS: Infusaport/Implanted VAD PRN NS Lock Flush IVF (06:19)
[2016-06-29 08:00] VITALS: BP 144/75; PULSE 83; RESP 18; TEMP 98.3; O2SAT 97
[2016-06-29] MEDS: CALCIUM CARBONATE 1.25 GM (CA 500 MG) TAB PO SCH ×2 (08:05→22:58)
[2016-06-29] MEDS: FUROSEMIDE 20 MG TAB PO SCH (08:05)
[2016-06-29] MEDS: METOPROLOL TARTRATE 25 MG TAB PO SCH ×2 (08:05→22:58)
[2016-06-29] MEDS: POTASSIUM CHLORIDE 20 MEQ CONTROLLED RELEASE TAB PO SCH (08:05)
[2016-06-29] MEDS: FOLIC ACID 1 MG TAB PO SCH (08:06)
[2016-06-29] MEDS: LACTOBACILLUS ACIDOPHILUS TAB PO SCH ×3 (08:06→16:51)
[2016-06-29] MEDS: PANTOPRAZOLE SOD 40 MG DELAYED RELEASE TAB PO SCH (08:06)
[2016-06-29] MEDS: DIPHENOXYLATE/ATROPINE 2.5 MG/0.025 MG/5 ML CUP PO SCH ×3 (08:06→16:48)
[2016-06-29] MEDS: ONDANSETRON HCL 4 MG/2 ML VIAL IV PUSH PRN (10:36)
--- NOTE | 2016-06-29 11:42 | HHI.PR ---
Subjective Remarks Follow-up for C. difficile colitis, lower extremity edema. Ms. Mccauley is doing well. Tolerating diet well. Ms. Mccauley reports much improvements of her legs. She is slowly improving with PT. Objective Vitals Vital Signs Date Time Temp Pulse Resp B/P Pulse Ox O2 Delivery O2 Flow Rate FiO2 06/29/16 08:00 98.3 83 18 144/75 97 06/29/16 04:00 98.7 80 16 148/78 97 06/29/16 00:00 98.9 79 16 122/69 96 06/28/16 20:00 98.9 86 17 146/70 98 06/28/16 17:32 79 129/79 06/28/16 16:00 98.4 85 18 169/86 96 06/28/16 12:00 98.4 78 18 132/72 96 I/O 06/28/16 06/28/16 06/28/16 06/29/16 06/29/16 06/29/16 07:00 15:00 23:00 07:00 15:00 23:00 Intake Total 480 ml 1080 ml 480 ml 480 ml Balance 480 ml 1080 ml 480 ml 480 ml Intake Oral 480 ml 1080 ml 480 ml 480 ml # Voids 2 1 2 3 # Bowel Movements 2 1 1 Result Diagram: 06/27/16 0530 06/27/16 0530 Imaging Last Impressions Abdomen X-Ray 06/15/16 0000 Signed Impressions: Service Date/Time: Wednesday, June 15, 2016 14:50 - CONCLUSION: 1. No evidence of bowel obstruction, ileus or perforation. 2. Degenerative changes and mild scoliosis of the thoracolumbar spine. Maged Shore MD Lower Extremity Ultrasound 06/04/16 0000 Signed Impressions: Service Date/Time: May 11:08 - CONCLUSION: No DVT is present within the left lower extremity. Subcutaneous edema is visualized. Darrick Hi MD Abdomen/Pelvis CT 06/04/16 0000 Signed Impressions: Service Date/Time: Sunday, June 05, 2016 00:06 - CONCLUSION: 1. Liver slightly nodular could be from early morphologic changes of cirrhosis. 2. Mild abdominal ascites and tiny bilateral pleural effusions. 3. Mild superior endplate compression fracture at T12 likely old. 4. Diffuse anasarca. Aristides Barbosa MD Liver Ultrasound 05/30/16 0000 Signed Impressions: Service Date/Time: Monday, May 30, 2016 21:55 - CONCLUSION: 1. The liver is slightly echogenic which maybe due to fatty infiltration and or hepatocellular dysfunction. 2. Sludge in the gallbladder with mild pericholecystic fluid nonspecific. No definite gallstones. Shantel Pryor MD Objective Remarks GENERAL: alert, NAD. SKIN: Warm and dry. HEAD: Normocephalic. EYES: No scleral icterus. No injection or drainage. NECK: Supple, trachea midline. No JVD or lymphadenopathy. CARDIOVASCULAR: Regular rate and rhythm without murmurs, gallops, or rubs. RESPIRATORY: Breath sounds equal bilaterally. No accessory muscle use. GASTROINTESTINAL: Abdomen soft, non-tender, nondistended. MUSCULOSKELETAL: No cyanosis. 1+ edema in both lower ext. Left lower ext swelling worse than right LLE. BACK: Nontender without obvious deformity. No CVA tenderness. Procedures Echo 06/08/2016 - Left ventricle: The cavity size was normal. Wall thickness was normal. Systolic function was normal. The estimated ejection fraction was in the range of 55% to 60%. Wall motion was normal; there were no regional wall motion abnormalities. - Mitral valve: Mild regurgitation. - Tricuspid valve: Mild regurgitation. A/P Problem List: (1) C. difficile colitis ICD Code: A04.7 Status: Acute (2) Hypomagnesemia ICD Code: E83.42 Status: Acute (3) GI bleed ICD Code: K92.2 Status: Acute (4) Cervical cancer ICD Code: C53.9 Status: Acute Assessment and Plan Ms. Mccauley is a 60-year-old female with a history of cervical cancer, hypertension who presented to the emergency department on 05/30/2016 due to rectal bleed. She was evaluated by GI but refused EGD and colonoscopy. She has not had any further GI bleed. She was also diagnosed with C. difficile colitis for which she has been taking Flagyl. She also has anasarca especially bilateral lower extremity edema. Doppler ultrasound of the left lower extremity was negative for any DVT. C. difficile colitis - Lactinex 1 tablet by mouth 3 times a day. - Finished Flagyl on 06/23/16 supposedly however still with diarrhea, and worse, repeat C. difficile negative. Continue Questran, Imodium Hypomagnesemia - Mg 1.2 on 06/27/2016. Check BMP, Mg on 06/30/2016. GI bleed - patient has refused EGD and colonoscopy. No further GI bleed. Hemoglobin stable. Switched Protonix 40 mg IV every 12 hours to Protonix 40 mg BID. - Dysphagia - will consult Speech for swallow eval. If needed, we can obtain Modified barium swallow study and then GI consult. - Anasarca - Echo --> EF 55-60%. Essentially unremarkable Echo. Much improved with lasix. We will continue Lasix 20mg Qday. - History of cervical cancer - patient to continue follow-up with Dr. Rodriguez at [facility] Full code. On 06/07/2016, discussed with patient regarding DVT prophylaxis with heparin subcutaneously. Given the risk and benefit, I do recommend heparin for DVT prophylaxis. However patient refused. Discharge plan: Probably home with home health when patient improves. Problem Qualifiers (1) GI bleed: Qualified Code: K92.2 - Gastrointestinal hemorrhage, unspecified gastrointestinal hemorrhage type Peña Montero DO Jun 29, 2016 11:42 Peña Montero DO Jun 29, 2016 11:42 am
[2016-06-29 12:00] VITALS: BP 140/71; PULSE 79; RESP 19; TEMP 98.7; O2SAT 95
[2016-06-29 16:00] VITALS: BP 143/77; PULSE 81; RESP 18; TEMP 98.7; O2SAT 95
[2016-06-29 20:00] VITALS: BP 134/77; PULSE 80; RESP 18; TEMP 99.6; O2SAT 95
[2016-06-30] VITALS: BP 158/88; PULSE 83; RESP 18; TEMP 97.9; O2SAT 94
[2016-06-30] MEDS: Infusaport/Implanted VAD PRN NS Lock Flush IVF ×2 (02:46→03:59)
[2016-06-30] MEDS: ACETAMINOPHEN/HYDROcodone 325 MG/10 MG TAB PO PRN ×3 (02:52→13:18)
[2016-06-30] MEDS: MORPHINE SULFATE 4 MG/ML INJ IV PUSH PRN ×3 (03:51→14:25)
[2016-06-30] MEDS: diphenhydrAMINE HCL 25 MG CAP PO PRN ×2 (03:58→14:29)
[2016-06-30 04:00] VITALS: BP 125/74; PULSE 75; RESP 17; TEMP 97.5; O2SAT 94
[2016-06-30 04:31] LABS: BICARBONATE 29.3 MEQ/L (21.0-32.0); MAGNESIUM 1.1 MG/DL (1.5-2.5); POTASSIUM 3.5 MEQ/L (3.5-5.1)
[2016-06-30] MEDS: CHOLESTYRAMINE 4 GM PACKET PO SCH ×2 (06:08→13:18)
[2016-06-30 07:54] VITALS: BP 131/79; PULSE 71; RESP 20; TEMP 97.9; O2SAT 94
[2016-06-30] MEDS: LACTOBACILLUS ACIDOPHILUS TAB PO SCH ×2 (07:55→13:18)
[2016-06-30] MEDS: FOLIC ACID 1 MG TAB PO SCH (07:55)
[2016-06-30] MEDS: POTASSIUM CHLORIDE 20 MEQ CONTROLLED RELEASE TAB PO SCH (07:55)
[2016-06-30] MEDS: METOPROLOL TARTRATE 25 MG TAB PO SCH (07:55)
[2016-06-30] MEDS: FUROSEMIDE 20 MG TAB PO SCH (07:56)
[2016-06-30] MEDS: CALCIUM CARBONATE 1.25 GM (CA 500 MG) TAB PO SCH (07:56)
[2016-06-30] MEDS: PANTOPRAZOLE SOD 40 MG DELAYED RELEASE TAB PO SCH (07:56)
[2016-06-30] MEDS: DIPHENOXYLATE/ATROPINE 2.5 MG/0.025 MG/5 ML CUP PO SCH ×2 (07:57→13:18)
--- NOTE | 2016-06-30 09:56 | HHI.PR ---
Objective Vitals Vital Signs Date Time Temp Pulse Resp B/P Pulse Ox O2 Delivery O2 Flow Rate FiO2 06/30/16 07:54 97.9 71 20 131/79 94 06/30/16 04:00 97.5 75 17 125/74 94 06/30/16 00:00 97.9 83 18 158/88 94 06/29/16 20:00 99.6 80 18 134/77 95 06/29/16 16:00 98.7 81 18 143/77 95 06/29/16 12:00 98.7 79 19 140/71 95 I/O 06/29/16 06/29/16 06/29/16 06/30/16 06/30/16 06/30/16 07:00 15:00 23:00 07:00 15:00 23:00 Intake Total 480 ml 1200 ml 240 ml 480 ml Balance 480 ml 1200 ml 240 ml 480 ml Intake Oral 480 ml 1200 ml 240 ml 480 ml # Voids 3 3 1 3 # Bowel Movements 1 2 1 3 Result Diagram: 06/27/16 0530 06/30/16 0250 Objective Remarks GENERAL: alert, NAD. SKIN: Warm and dry. HEAD: Normocephalic. EYES: No scleral icterus. No injection or drainage. NECK: Supple, trachea midline. No JVD or lymphadenopathy. CARDIOVASCULAR: Regular rate and rhythm without murmurs, gallops, or rubs. RESPIRATORY: Breath sounds equal bilaterally. No accessory muscle use. GASTROINTESTINAL: Abdomen soft, non-tender, nondistended. MUSCULOSKELETAL: No cyanosis. 1+ edema in both lower ext. Left lower ext swelling worse than right LLE. BACK: Nontender without obvious deformity. No CVA tenderness. Procedures Echo 06/08/2016 - Left ventricle: The cavity size was normal. Wall thickness was normal. Systolic function was normal. The estimated ejection fraction was in the range of 55% to 60%. Wall motion was normal; there were no regional wall motion abnormalities. - Mitral valve: Mild regurgitation. - Tricuspid valve: Mild regurgitation. A/P Problem List: (1) C. difficile colitis ICD Code: A04.7 Status: Acute (2) Hypomagnesemia ICD Code: E83.42 Status: Acute (3) GI bleed ICD Code: K92.2 Status: Acute (4) Cervical cancer ICD Code: C53.9 Status: Acute Assessment and Plan Ms. Mccauley is a 60-year-old female with a history of cervical cancer, hypertension who presented to the emergency department on 05/30/2016 due to rectal bleed. She was evaluated by GI but refused EGD and colonoscopy. She has not had any further GI bleed. She was also diagnosed with C. difficile colitis for which she has been taking Flagyl. She also has anasarca especially bilateral lower extremity edema. Doppler ultrasound of the left lower extremity was negative for any DVT. C. difficile colitis - Lactinex 1 tablet by mouth 3 times a day. - Finished Flagyl on 06/23/16 supposedly however still with diarrhea, and worse, repeat C. difficile negative. Continue Questran, Imodium Hypomagnesemia - Mg 1.2 on 06/27/2016. Check BMP, Mg on 06/30/2016. GI bleed - patient has refused EGD and colonoscopy. No further GI bleed. Hemoglobin stable. Switched Protonix 40 mg IV every 12 hours to Protonix 40 mg BID. - Dysphagia - will consult Speech for swallow eval. If needed, we can obtain Modified barium swallow study and then GI consult. - Anasarca - Echo --> EF 55-60%. Essentially unremarkable Echo. Much improved with lasix. We will continue Lasix 20mg Qday. - History of cervical cancer - patient to continue follow-up with Dr. Rodriguez at [facility] Full code. On 06/07/2016, discussed with patient regarding DVT prophylaxis with heparin subcutaneously. Given the risk and benefit, I do recommend heparin for DVT prophylaxis. However patient refused. Discharge plan: Probably home with home health when patient improves. Problem Qualifiers (1) GI bleed: Qualified Code: K92.2 - Gastrointestinal hemorrhage, unspecified gastrointestinal hemorrhage type Peña Montero DO Jun 30, 2016 09:56
[2016-06-30 12:00] VITALS: BP 149/79; PULSE 73; RESP 18; TEMP 98.2; O2SAT 94
[2016-06-30] MEDS ORDERED: FOLI1TAB4 PO (12:31)
[2016-06-30] MEDS ORDERED: FURO20TA PO (12:31)
[2016-06-30] MEDS ORDERED: METO25TA3 PO (12:31)
--- NOTE | 2016-06-30 12:32 | HHI.DS ---
Discharge Summary Admission Date Jun 02, 2016 at 10:29 am Discharge Date: Jun 30, 2016 Admitting Diagnosis GI bleed/diarrhea (1) C. difficile colitis ICD Code: A04.7 Diagnosis: Principal (2) Hypomagnesemia ICD Code: E83.42 Diagnosis: Principal (3) GI bleed ICD Code: K92.2 (4) Cervical cancer ICD Code: C53.9 Procedures Echo 06/08/2016 - Left ventricle: The cavity size was normal. Wall thickness was normal. Systolic function was normal. The estimated ejection fraction was in the range of 55% to 60%. Wall motion was normal; there were no regional wall motion abnormalities. - Mitral valve: Mild regurgitation. - Tricuspid valve: Mild regurgitation. Brief History - From Admission patient is a 60 y/o female with history of cervical and lung cancer, hypertension who presented to ER with rectal bleed. she says that she had one episode of rectal bleed earlier today. she says that she passed some bright-red and blood clots. she denies any abdominal pain, nausea or vomiting but she says that she feels very weak. she says that she never had colonoscopy in the past. she denies any sob but she has some dizziness when she's standing up. she's being followed up by and the last chemo session was about two months ago. CBC/BMP: 06/27/16 0530 06/30/16 0250 Significant Findings Laboratory Tests Test 06/30/16 02:50 Blood Urea Nitrogen 3 MG/DL (7-18) Creatinine 0.35 MG/DL (0.50-1.00) Random Glucose 118 MG/DL (74-106) Calcium Level 7.9 MG/DL (8.5-10.1) Magnesium Level 1.1 MG/DL (1.5-2.5) Imaging Last Impressions Abdomen X-Ray 06/15/16 0000 Signed Impressions: Service Date/Time: Wednesday, June 15, 2016 14:50 - CONCLUSION: 1. No evidence of bowel obstruction, ileus or perforation. 2. Degenerative changes and mild scoliosis of the thoracolumbar spine. Maged Shore MD Lower Extremity Ultrasound 06/04/16 0000 Signed Impressions: Service Date/Time: May 11:08 - CONCLUSION: No DVT is present within the left lower extremity. Subcutaneous edema is visualized. Darrick Hi MD Abdomen/Pelvis CT 06/04/16 0000 Signed Impressions: Service Date/Time: Sunday, June 05, 2016 00:06 - CONCLUSION: 1. Liver slightly nodular could be from early morphologic changes of cirrhosis. 2. Mild abdominal ascites and tiny bilateral pleural effusions. 3. Mild superior endplate compression fracture at T12 likely old. 4. Diffuse anasarca. Aristides Barbosa MD Liver Ultrasound 05/30/16 0000 Signed Impressions: Service Date/Time: Monday, May 30, 2016 21:55 - CONCLUSION: 1. The liver is slightly echogenic which maybe due to fatty infiltration and or hepatocellular dysfunction. 2. Sludge in the gallbladder with mild pericholecystic fluid nonspecific. No definite gallstones. K. Glenroy Pryor MD PE at Discharge Not in distress. SKIN: No rashes, warm and dry HEAD: Atraumatic. Normocephalic. EYES: Pupils equal round and reactive. Extraocular motions intact. No scleral icterus. ENT:Airway patent. NECK: Supple neck CARDIOVASCULAR: Regular rate and rhythm without murmurs, gallops, or rubs. RESPIRATORY: Fair air entry bilaterally. No wheezes, rales, or rhonchi. GASTROINTESTINAL: Abdomen soft, mildly tender, mildly distended, good bowel sounds. MUSCULOSKELETAL: No edema or cyanosis NEUROLOGICAL: Awake and alert, oriented 3. Moves all extremity. Normal speech.no focal neurological deficit Grumpy. Pt update on day of discharge Patient is doing well. Denies any acute concerns. Denies any chest pain, shortness of breath, fever or chills. She is improving some. Case management discussed with physical therapy who agreed with discharging patient home. Hospital Course Ms. Mccauley is a 60-year-old female with a history of cervical cancer, hypertension who presented to the emergency department on 05/30/2016 due to rectal bleed. She was evaluated by GI but refused EGD and colonoscopy. She has not had any further GI bleed. She was also diagnosed with C. difficile colitis for which she has been taking Flagyl. She also has anasarca especially bilateral lower extremity edema. Doppler ultrasound of the left lower extremity was negative for any DVT. Patient's bilateral leg swelling improved well on lasix. Patient was severely deconditioned. PT worked with her and gradually patient's condition improved. She was able to get up from bed and ambulate some. Since patient does not have additional SNF benefits, patient was discharged home with home health nursing. PT recommended home health as well. If needed patient can obtain outpatient physical therapy. Discussed with patient at length and patient agrees with discharge plan to go home with home health. All questions answered. Pt Condition on Discharge: Stable Discharge Disposition: Disch w/ Home Health Serv Discharge Time: > 30 minutes Discharge Instructions DIET: Follow Instructions for: As Tolerated, No Restrictions Activities you can perform: Weight Bearing as Rosa Follow up Referrals: PCP Follow-up - 1 Week New Medications: Pantoprazole (Protonix) 40 Mg Tab 40 MG PO DAILY Reflux #30 Ref 0 TAB Potassium Chloride ER (K-Tab) 10 Meq Tab 10 MEQ PO DAILY Electrolyte Replacement #30 Ref 0 TAB Transport Chair Ultra Lig (Transport Chair Ultra Lig) 1 Mis Mis 1 EA .ROUTE DIRECTED #1 EA Folic Acid (Folate) 1 Mg Tab 1 MG PO DAILY vitamin #30 TAB Furosemide (Furosemide) 20 Mg Tab 20 MG PO DAILY Heart #30 TAB Metoprolol Tartrate (Metoprolol Tartrate) 25 Mg Tab 12.5 MG PO Q12HR Heart Days 30 TAB Oyster Shell (Oyster Shell Calcium) 500 Mg Tab 500 MG PO Q12HR Calcium Supplement #30 TAB Continued Medications: Ondansetron (Zofran) 8 Mg Tab 8 MG PO TID Nausea/Vomiting Ref 0 TAB Prochlorperazine Maleate (Prochlorperazine Maleate) 10 Mg Tab 10 MG PO Q6H PRN NAUSEA OR VOMITING Ref 0 TAB Discontinued Medications: Dexamethasone (Dexamethasone) 4 Mg Tab 4 MG PO BID #60 Ref 0 TAB Peña Montero DO Jun 30, 2016 12:32 pm
--- NOTE | 2016-06-30 12:34 | HHI.FF ---
Face to Face Verification Diagnosis: (1) C. difficile colitis (2) Cervical cancer (3) Diarrhea Home Health Nursing Order: Signs/symptoms of disease process Nursing assessment with vital signs I have seen patient Karen Mccauley on 06/30/16. My clinical findings support the need for the requested home health care services because: Patient has SOB Deconditioned w/ increased weakness Limited ability to care for self Need for psychosocial assistance High risk of falls Infection w/ risk of complications I certify that my clinical findings support that this patient is homebound because: Impaired cognitive ability/safety Unsteady gait/balance Unsafe to leave home unassisted Unable to use public transportation Peña Montero DO Jun 30, 2016 12:34 pm
[2016-06-30] MEDS ORDERED: HYDR-3516 PO (12:35)
[2016-06-30] MEDS: ONDANSETRON HCL 4 MG/2 ML VIAL IV PUSH PRN (14:25)
[2016-06-30 16:00] VITALS: BP 143/77; PULSE 84; RESP 18; TEMP 97.6; O2SAT 95
== END 2016-06-30 17:14 | disposition home health service (06) | DRG 372 ==
LOC: NEPE 17:50 → INTOOBSV 19:13 → NEDA 19:13 → NEPGCP 22:33 → OBSVTOIN 06-02 10:29 → HOCB 06-03 00:30
PROVIDERS: ADMIT Hospitalist; ATTEND Hospitalist
DX: A04.7 Enterocolitis due to Clostridium difficile (principal); J90 Pleural effusion, not elsewhere classified; E87.3 Alkalosis; C78.00 Secondary malignant neoplasm of unspecified lung; R18.8 Other ascites; D69.59 Other secondary thrombocytopenia; E87.1 Hypo-osmolality and hyponatremia; D70.9 Neutropenia, unspecified; K76.0 Fatty (change of) liver, not elsewhere classified; E88.09 Other disorders of plasma-protein metabolism, not elsewhere classified; E83.51 Hypocalcemia; I10 Essential (primary) hypertension; E87.6 Hypokalemia; D53.9 Nutritional anemia, unspecified; E83.42 Hypomagnesemia; R60.0 Localized edema; R13.10 Dysphagia, unspecified; I08.1 Rheumatic disorders of both mitral and tricuspid valves; L30.9 Dermatitis, unspecified; C53.9 Malignant neoplasm of cervix uteri, unspecified; K42.9 Umbilical hernia without obstruction or gangrene; M41.85 Other forms of scoliosis, thoracolumbar region; F17.210 Nicotine dependence, cigarettes, uncomplicated; Z53.29 Procedure and treatment not carried out because of patient's decision for other reasons; Z86.73 Personal history of transient ischemic attack (TIA), and cerebral infarction without residual deficits; Z88.0 Allergy status to penicillin; Z92.3 Personal history of irradiation; Z92.21 Personal history of antineoplastic chemotherapy
CPT/HCPCS: 74000; 74176; 76705; 80048; 80053; 81001; 82272; 82607; 82746; 83690; 83735; 83880; 84100; 84132; 84155; 85014; 85018; 85025; 85610; 85730; 86850; 86900; 86901; 87205; 87207; 87328; 87329; 87425; 87493; 87506; 93306; 93971; 96374; 96375; C9113; G0378; G8987-GP; G8988-GP; J0610; J1642; J1940; J2270; J2405; J2550; J3475; J3480; J7030; J7050; P9045; Q9963

== ENCOUNTER 2016-07-24 18:02 | Inpatient (IN) | payer MEDICAID ==
[~2016-07-24] VITALS: Ht 165.1 cm; Wt 52.0 kg
[~2016-07-24 18:02] MED LIST changes: +FOLI1TAB4 PO; +FURO20TA PO; +HYDR-3516 PO; +K-TA10TA PO; +METO25TA3 PO; +OYST500T11 PO; -PRED20 PO; +PROC10TA PO; +PROT40TA PO; +TRANSPORT CHAIR1 MIS; -TRIA.1%T TOP; -Z.0.NO CURRENT MEDS; +ZOFR8TAB PO
[2016-07-24 18:21] VITALS: BP 140/66; PULSE 72; RESP 18; TEMP 98.8; O2SAT 98
--- NOTE | 2016-07-24 18:42 | PD ---
HPI Chief Complaint: anemia Time Seen by Provider: 18:28 Travel History International Travel<30 days: No Contact w/Intl Traveler<30days: No Traveled to known affect area: No History of Present Illness HPI 61-year-old female with history of alcoholic hepatitis, hypertension, coronary disease, cervical cancer, COPD. She presents from [facility] for evaluation of low hemoglobin. She was sent here because her hemoglobin was low. She does note that over the past few weeks she has been feeling more fatigued than usual. She denies any melena, bright red blood per rectum, diarrhea, abdominal pain, hematemesis, coffee-ground emesis. She denies any recent bleeding episodes. Per chart review it appears that the patient was admitted in May 2016 for GI bleed and diarrhea. At that time she was apparently refusing colonoscopy and endoscopy. According to her son who is at bedside shortly after discharge she brought her to [facility] in late May/early June and she had a colonoscopy done but he is unsure of the results of the colonoscopy and he does not know who the prepress proofer was. She is not on any anticoagulation. No other complaints. PFSH Past Medical History Asthma: No Blood Disorders: No Heart Rhythm Problems: No Cancer: No (lung and cervix) Cardiovascular Problems: Yes High Cholesterol: No Chemotherapy: Yes Congestive Heart Failure: No Cerebrovascular Accident: Yes Diminished Hearing: Yes (TINNITIS) Endocrine: No Genitourinary: No Hypertension: Yes Immune Disorder: Yes (cancer on chemo, low wbcs) Musculoskeletal: Yes ( ARTHRITIS) Neurologic: Yes Psychiatric: No Reproductive: No Respiratory: Yes (lung cancer) Migraines: No Radiation Therapy: Yes Seizures: No Sleep Apnea: No Menopausal: Yes Dilation and Curettage (D&C): Yes Past Surgical History Body Medical Devices: port Section: Yes Tonsillectomy: Yes Other Surgery: Yes (rt chest port) Social History Alcohol Use: Yes Tobacco Use: Yes () Substance Use: No Allergies-Medications (Allergen,Severity, Reaction): Coded Allergies: Penicillin (Verified Allergy, Severe, THROAT SWELLS, 07/24/16) [place] (Verified Allergy, Severe, RASH, 07/24/16) Cat Dander (Verified Allergy, Unknown, 07/24/16) Reported Meds & Prescriptions Reported Meds & Active Scripts Active Hydrocodone-Acetaminophen 5-325 mg Tab 1 Tab PO Q6HR PRN Metoprolol Tartrate 25 Mg Tab 12.5 Mg PO Q12HR 30 Days Furosemide 20 Mg Tab 20 Mg PO DAILY Folate (Folic Acid) 1 Mg Tab 1 Mg PO DAILY Transport Chair Ultra Lig (Device) 1 Mis Mis 1 Ea .ROUTE DIRECTED K-Tab (Potassium Chloride) 10 Meq Tab 10 Meq PO DAILY Oyster Shell Calcium (Oyster Shell) 500 Mg Tab 500 Mg PO Q12HR Protonix (Pantoprazole Sodium) 40 Mg Tab 40 Mg PO DAILY Reported Prochlorperazine Maleate 10 Mg Tab 10 Mg PO Q6H PRN Zofran (Ondansetron HCl) 8 Mg Tab 8 Mg PO TID Review of Systems Except as stated in HPI: all other systems reviewed are Neg Physical Exam Narrative GENERAL: Well-developed well-nourished female in no acute distress SKIN: Warm and dry. Somewhat pale. HEAD: Atraumatic. Normocephalic. EYES: Pupils equal and round. No scleral icterus. No injection or drainage. ENT: No nasal bleeding or discharge. Mucous membranes pink and moist. NECK: Trachea midline. No JVD. CARDIOVASCULAR: Regular rate and rhythm. No murmur appreciated. RESPIRATORY: No accessory muscle use. Clear to auscultation. Breath sounds equal bilaterally. GASTROINTESTINAL: Abdomen soft, non-tender, nondistended. Hepatic and splenic margins not palpable. MUSCULOSKELETAL: No obvious deformities. No edema. NEUROLOGICAL: Awake and alert. No obvious cranial nerve deficits. Motor grossly within normal limits. Normal speech. PSYCHIATRIC: Appropriate mood and affect; insight and judgment normal. Data Data Last Documented VS Vital Signs Date Time Temp Pulse Resp B/P Pulse Ox O2 Delivery O2 Flow Rate FiO2 07/24/16 18:21 98.8 72 18 140/66 98 Orders Type And Screen (07/24/16 18:30) Complete Blood Count With Diff (07/24/16 18:30) Comprehensive Metabolic Panel (07/24/16 18:30) Act Partial Throm Time (Ptt) (07/24/16 18:30) Prothrombin Time / Inr (Pt) (07/24/16 18:30) Iv Access Insert/Monitor (07/24/16 18:30) Pantoprazole Inj (Protonix Inj) (07/24/16 18:45) Red Blood Cells (Rbc) (07/24/16 20:35) Blood Product Administration .UPON TRANSFUSION (07/24/16 20:35) Sodium Chlor 0.9% 250 Ml Inj (Ns 250 Ml (07/24/16 20:45) Admit Order (Ed Use Only) (07/24/16 20:53) Labs Laboratory Tests Test 07/24/16 07/24/16 19:15 20:37 White Blood Count 6.9 TH/MM3 Red Blood Count 2.29 MIL/MM3 Hemoglobin 6.6 GM/DL Hematocrit 19.3 % Mean Corpuscular Volume 84.1 FL Mean Corpuscular Hemoglobin 28.7 PG Mean Corpuscular Hemoglobin 34.1 % Concent Red Cell Distribution Width 19.1 % Platelet Count 283 TH/MM3 Mean Platelet Volume 8.9 FL Neutrophils (%) (Auto) 85.0 % Lymphocytes (%) (Auto) 4.2 % Monocytes (%) (Auto) 9.1 % Eosinophils (%) (Auto) 1.1 % Basophils (%) (Auto) 0.6 % Neutrophils # (Auto) 5.8 TH/MM3 Lymphocytes # (Auto) 0.3 TH/MM3 Monocytes # (Auto) 0.6 TH/MM3 Eosinophils # (Auto) 0.1 TH/MM3 Basophils # (Auto) 0.0 TH/MM3 CBC Comment AUTO DIFF Prothrombin Time 12.8 SEC Prothromb Time International 1.2 RATIO Ratio Activated Partial 23.5 SEC Thromboplast Time Sodium Level 129 MEQ/L Potassium Level 3.2 MEQ/L Chloride Level 88 MEQ/L Carbon Dioxide Level 32.4 MEQ/L Anion Gap 9 MEQ/L Blood Urea Nitrogen 7 MG/DL Creatinine 0.34 MG/DL Estimat Glomerular Filtration 195 ML/MIN Rate Random Glucose 110 MG/DL Calcium Level 7.8 MG/DL Total Bilirubin 0.3 MG/DL Aspartate Amino Transf 18 U/L (AST/SGOT) Alanine Aminotransferase 7 U/L (ALT/SGPT) Alkaline Phosphatase 156 U/L Total Protein 5.7 GM/DL Albumin 1.5 GM/DL Blood Type O POSITIVE Antibody Screen NEGATIVE Crossmatch Leukocyte-Reduced Red Blood Cells Blood Bank Comment MDM Medical Decision Making Medical Screen Exam Complete: Yes Emergency Medical Condition: Yes Medical Record Reviewed: Yes Interpretation(s) CMP sodium 129, potassium 3.2 Hemoglobin 6.6 Differential Diagnosis Acute anemia, chronic anemia, upper GI bleed, lower GI bleed Narrative Course 61-year-old female presents from [facility] for evaluation of anemia. She has heme positive stool. Plan is for basic lab work, type and screen, admission. IV Protonix administered. The patient will be given 2 units of packed red blood cells. Discussed with Dr. Potter who is agreeable with admission. HemaPrompt Point of Care Internal Pos. & Neg. Controls: Passed Fecal Specimen Occult Blood: Positive Diagnosis Primary Impression: Anemia Qualified Code: D64.9 - Anemia, unspecified type Additional Impression: GI bleed Qualified Code: K92.2 - Gastrointestinal hemorrhage, unspecified gastrointestinal hemorrhage type Admitting Information Admitting Physician Requests: Admit Chad Torre Jul 24, 2016 18:42
[2016-07-24] MEDS ORDERED: PANTOPRAZOLE SODIUM 40 MG VIAL IV PUSH ONE (18:45)
[2016-07-24 20:10] LABS: APTT (PATIENT) 23.5 SEC (24.3-30.1); INTERNATIONAL NORMALIZED RATIO 1.2 RATIO; PROTHROMBIN TIME - PATIENT 12.8 SEC (9.8-11.6)
[2016-07-24 20:20] LABS: ANION GAP 9 MEQ/L (5-15); AST (GOT) 18 U/L (15-37); BICARBONATE 32.4 MEQ/L (21.0-32.0); BLOOD UREA NITROGEN 7 MG/DL (7-18); CHLORIDE 88 MEQ/L (98-107); GLOMERULAR FILTRATION RATE 195 ML/MIN (>89); POTASSIUM 3.2 MEQ/L (3.5-5.1); SODIUM (NA) 129 MEQ/L (136-145)
[2016-07-24 20:23] LABS: ALKALINE PHOSPHATASE 156 U/L (45-117); ALT (GPT) 7 U/L (10-53); TOTAL BILIRUBIN ADULT 0.3 MG/DL (0.2-1.0)
[2016-07-24 20:32] LABS: AUTOMATED NEUTROPHIL # 5.8 TH/MM3 (1.8-7.7); BASOPHIL % 0.6 % (0.0-2.0); EOSINOPHIL # 0.1 TH/MM3 (0-0.4); EOSINOPHIL % 1.1 % (0.0-4.0); HEMATOCRIT 19.3 % (35.0-46.0); LYMPH % 4.2 % (9.0-44.0); LYMPHOCYTE # 0.3 TH/MM3 (1.0-4.8); MEAN CELL VOLUME 84.1 FL (80.0-100.0); MEAN CORPUSCULAR HEMOGLOBIN 28.7 PG (27.0-34.0); MEAN CORPUSCULAR HGB CONC 34.1 % (32.0-36.0); MONO % 9.1 % (0.0-8.0); PLATELET COUNT 283 TH/MM3 (150-450); RED BLOOD COUNT 2.29 MIL/MM3 (4.00-5.30); RED CELL DISTRIBUTION WIDTH 19.1 % (11.6-17.2); WHITE BLOOD COUNT 6.9 TH/MM3 (4.0-11.0)
[2016-07-24 20:36] LABS: HEMO FLAGS AUTO DIFF
[2016-07-24] MEDS ORDERED: SODIUM CHLOR 0.9% 250 ML INJ 250 ML IV ONE (20:45)
[2016-07-24 21:00] VITALS: BP 141/67; PULSE 71; RESP 16; O2SAT 97
[2016-07-24] MEDS ORDERED: SODIUM CHLORIDE 0.9% FLUSH 5 ML FLUSH FLUSH PRN (21:00)
[2016-07-24] MEDS ORDERED: NALOXONE HCL 0.4 MG/ML AMP IV PRN (21:00)
[2016-07-24] MEDS: SODIUM CHLORIDE 0.9% FLUSH 5 ML FLUSH FLUSH SCH (21:00)
[2016-07-24] MEDS ORDERED: POTASSIUM CHLORIDE 20 MEQ CONTROLLED RELEASE TAB PO ONE ×2 (21:00)
--- NOTE | 2016-07-24 21:03 | PD ---
Physical Exam Date Seen by Provider: Jul 24, 2016 Time Seen by Provider: 19:00 Narrative Patient is sent to us from a senior care for evaluation of anemia Data Data Last Documented VS Vital Signs Date Time Temp Pulse Resp B/P Pulse Ox O2 Delivery O2 Flow Rate FiO2 07/24/16 18:21 98.8 72 18 140/66 98 Orders Type And Screen (07/24/16 18:30) Complete Blood Count With Diff (07/24/16 18:30) Comprehensive Metabolic Panel (07/24/16 18:30) Act Partial Throm Time (Ptt) (07/24/16 18:30) Prothrombin Time / Inr (Pt) (07/24/16 18:30) Iv Access Insert/Monitor (07/24/16 18:30) Pantoprazole Inj (Protonix Inj) (07/24/16 18:45) Red Blood Cells (Rbc) (07/24/16 20:35) Sodium Chlor 0.9% 250 Ml Inj (Ns 250 Ml (07/24/16 20:45) Admit Order (Ed Use Only) (07/24/16 20:53) Potassium Chloride (Kcl) (07/24/16 21:00) Admit To Inpatient (07/24/16 ) Vital Signs (Adult) Q4H (07/24/16 20:49) Activity Oob With Assistance (07/24/16 20:49) Car Repair Supervisor / Telemetry .CONTINUOUS (07/24/16 20:49) Diet Npo (07/25/16 Breakfast) Sodium Chloride 0.9% Flush (Ns Flush) (07/24/16 21:00) Sodium Chloride 0.9% Flush (Ns Flush) (07/24/16 21:00) Naloxone Inj (Narcan Inj) (07/24/16 21:00) Inpatient Certification (07/24/16 ) Potassium Chloride (Kcl) (07/24/16 21:00) Blood Product Administration .UPON TRANSFUSION (07/24/16 20:56) Basic Metabolic Panel (Bmp) (07/25/16 06:00) Complete Blood Count With Diff (07/25/16 06:00) Hgb & Hct (07/25/16 01:00) Labs Laboratory Tests Test 07/24/16 07/24/16 19:15 20:37 White Blood Count 6.9 TH/MM3 Red Blood Count 2.29 MIL/MM3 Hemoglobin 6.6 GM/DL Hematocrit 19.3 % Mean Corpuscular Volume 84.1 FL Mean Corpuscular Hemoglobin 28.7 PG Mean Corpuscular Hemoglobin 34.1 % Concent Red Cell Distribution Width 19.1 % Platelet Count 283 TH/MM3 Mean Platelet Volume 8.9 FL Neutrophils (%) (Auto) 85.0 % Lymphocytes (%) (Auto) 4.2 % Monocytes (%) (Auto) 9.1 % Eosinophils (%) (Auto) 1.1 % Basophils (%) (Auto) 0.6 % Neutrophils # (Auto) 5.8 TH/MM3 Lymphocytes # (Auto) 0.3 TH/MM3 Monocytes # (Auto) 0.6 TH/MM3 Eosinophils # (Auto) 0.1 TH/MM3 Basophils # (Auto) 0.0 TH/MM3 CBC Comment AUTO DIFF Prothrombin Time 12.8 SEC Prothromb Time International 1.2 RATIO Ratio Activated Partial 23.5 SEC Thromboplast Time Sodium Level 129 MEQ/L Potassium Level 3.2 MEQ/L Chloride Level 88 MEQ/L Carbon Dioxide Level 32.4 MEQ/L Anion Gap 9 MEQ/L Blood Urea Nitrogen 7 MG/DL Creatinine 0.34 MG/DL Estimat Glomerular Filtration 195 ML/MIN Rate Random Glucose 110 MG/DL Calcium Level 7.8 MG/DL Total Bilirubin 0.3 MG/DL Aspartate Amino Transf 18 U/L (AST/SGOT) Alanine Aminotransferase 7 U/L (ALT/SGPT) Alkaline Phosphatase 156 U/L Total Protein 5.7 GM/DL Albumin 1.5 GM/DL Blood Type O POSITIVE Antibody Screen NEGATIVE Crossmatch Leukocyte-Reduced Red Blood Cells Blood Bank Comment MDM Supervised Visit with JAQUELINE: Yes Narrative Course I, Dr. Scanlon, have reviewed the advance practice practitioner's documentation and am in agreement, met with the patient face to face, made the diagnosis, and the medical decision making was done by me. *My assessment and Findings: Patient is awake and alert. She is pale. CBC Diagram 07/24/16 19:15 She is being admitted for treatment of her anemia. Diagnosis Primary Impression: Anemia Qualified Code: D64.9 - Anemia, unspecified type Additional Impression: GI bleed Qualified Code: K92.2 - Gastrointestinal hemorrhage, unspecified gastrointestinal hemorrhage type Fartun Scanlon MD Jul 24, 2016 21:03
[2016-07-24 22:19] VITALS: BP 153/70; PULSE 66; RESP 17; TEMP 98.6; O2SAT 98
[2016-07-24 22:34] VITALS: BP 162/78; PULSE 68; RESP 16; TEMP 98.6; O2SAT 99
[2016-07-24 22:55] LABS: HYPERSEGMENTED POLYS 1+ (NORMAL); NEUTROPHIL # MANUAL DIFF 6.8 TH/MM3 (1.8-7.7); POLYS (SEG NEUTROPHILS) 99 % (16-70); WBC DIFF SAMPLE 100
[2016-07-24 22:56] LABS: STOMATOCYTES 1+ (NORMAL)
[2016-07-24 22:57] LABS: PLATELET ESTIMATE SMEAR NORMAL (NORMAL); PLATELET MORPHOLOGY NORMAL (NORMAL); SCAN/DIFF FINAL DIFF MANUAL
[2016-07-24 23:39] VITALS: BP 162/70; PULSE 67; RESP 19; TEMP 98; O2SAT 100
[2016-07-24 23:49] VITALS: PULSE 64
[2016-07-25] VITALS (9 sets, daily range): BP systolic 132–162; BP diastolic 70–100; PULSE 65–71; RESP 18–20; TEMP 97.4–98.2; O2SAT 95–100
[2016-07-25] MEDS ORDERED: ACETAMINOPHEN 325 MG TAB PO ONE (01:30)
[2016-07-25] MEDS ORDERED: FUROSEMIDE 20 MG/2 ML VIAL IV PUSH ONE (02:00)
[2016-07-25] MEDS ORDERED: RESP: ALBUTEROL 2.5 MG/IPRATROPIUM 0.5 MG NEB (PRN) NEB (02:00)
--- NOTE | 2016-07-25 02:51 | RADRPT ---
EXAM DATE/TIME: 07/25/2016 02:12 [place] COMPARISON: No previous studies available for comparison. INDICATIONS : Shortness of breath. MEDICAL HISTORY : Hypertension. Carcinoma, lung. SURGICAL HISTORY : None. ENCOUNTER: Initial ACUITY: 1 day PAIN SCORE: Non-responsive. LOCATION: Bilateral chest FINDINGS: The cardiac silhouette is enlarged in transverse diameter. [id number] is in place via right customer success intern al jugular approach with its tip in the superior vena cava. There is subsegmental atelectasis in the right base. A small right sided effusion is present. CONCLUSION: 1. Cardiomegaly 2. Subsegmental ectasis right base with small right effusion Ankush Gibbs MD on July 25, 2016 at 2:49 Board Certified Radiologist. This report was verified electronically.
--- NOTE | 2016-07-25 03:01 | HHI.HP ---
HPI Service [facility] Primary Care Physician Elías Antonio MD Admission Diagnosis Anemia, GI bleed Diagnoses: Chief Complaint: "They told me I was anemic" Travel History International Travel<30 Days: No Contact w/Intl Traveler <30 Da: No Traveled to Known Affected Are: No History of Present Illness This is a 61-year-old female with history of alcoholic hepatitis, hypertension, cervical cancer diagnosed august 2015 s/p chemo and radiation, CVA, COPD, HTN and lung cancer followed by Dr. Rodriguez. Patient presents from [facility] for evaluation of low hemoglobin. Patient is a poor historian therefore information gathered from patient as well as prior computerized chart. Patient was recently admitted to [facility] from 06/02/2016 - 06/30/2016 for C Diff, hypomagnesemia and GI. She does note that over the past few weeks she has been feeling more fatigued than usual with occasional shortness of breath. Patient is unsure if she has had any melena or bright red blood per rectum as she is incontinent and, 'someone else has been cleaning her up. Patient denies diarrhea, abdominal pain, hematemesis, coffee-ground emesis. Patient was admitted in May 2016 for GI bleed and diarrhea. At that time she was apparently refusing colonoscopy and endoscopy. According to the ER documentation her son reports that shortly after discharge she brought her to [facility] in late May/early June and she had a colonoscopy done but he is unsure of the results of the colonoscopy and he does not know who the highway worker was. She is not on any anticoagulation. Patient denies fevers, chills, nausea, vomiting, or chest pain. Review of Systems Except as stated in HPI: all other systems reviewed are Neg Past Family Social History Past Medical History alcoholic hepatitis, hypertension, cervical cancer diagnosed August 2015 s/p chemo and radiation,CVA, COPD, HTN and lung cancer followed by Dr. Rodriguez Past Surgical History Tonsillectomy, PORT placement, C section Reported Medications Hydrocodone-Acetaminophen 5-325 mg Tab 1 Tab PO Q6HR PRN Metoprolol Tartrate 25 Mg Tab 12.5 Mg PO Q12HR 30 Days Furosemide 20 Mg Tab 20 Mg PO DAILY Folate (Folic Acid) 1 Mg Tab 1 Mg PO DAILY Transport Chair Ultra Lig (Device) 1 Mis Mis 1 Ea .ROUTE DIRECTED K-Tab (Potassium Chloride) 10 Meq Tab 10 Meq PO DAILY Oyster Shell Calcium (Oyster Shell) 500 Mg Tab 500 Mg PO Q12HR Protonix (Pantoprazole Sodium) 40 Mg Tab 40 Mg PO DAILY Prochlorperazine Maleate 10 Mg Tab 10 Mg PO Q6H PRN Zofran (Ondansetron HCl) 8 Mg Tab 8 Mg PO TID Allergies: Coded Allergies: Penicillin (Verified Allergy, Severe, THROAT SWELLS, 07/24/16) [place] (Verified Allergy, Severe, RASH, 07/24/16) Cat Dander (Verified Allergy, Unknown, 07/24/16) Active Ordered Medications Current Medications Medications (Trade) Dose Ordered Sig/Rachelle Route Start Time Stop Time Status Last Admin (NS 250 ml Inj) 250 ml @ 15 mls/hr ONCE ONCE IV 07/24/16 20:45 07/25/16 13:24 07/24/16 22:29 (NS Flush) 2 ml UNSCH PRN FLUSH 07/24/16 21:00 (NS Flush) 2 ml BID FLUSH 07/24/16 21:00 (Narcan Inj) 0.4 mg UNSCH PRN IV 07/24/16 21:00 Family History denies family medical history including CAD, DM, HTN or cancer Social History Tobacco use about 10 cigarettes per day ETOH use about 3 times per week Physical Exam Vital Signs Vital Signs Date Time Temp Pulse Resp B/P Pulse Ox O2 Delivery O2 Flow Rate FiO2 07/25/16 02:34 66 20 147/70 99 07/25/16 02:19 98.0 67 20 162/100 100 07/24/16 23:49 64 07/24/16 23:39 98.0 67 19 162/70 100 07/24/16 22:34 98.6 68 16 162/78 99 Nasal Cannula 2 07/24/16 22:19 98.6 66 17 153/70 98 Nasal Cannula 2 07/24/16 21:00 71 16 141/67 97 Nasal Cannula 2 07/24/16 18:21 98.8 72 18 140/66 98 Physical Exam GENERAL: This is a frail chronically ill appearing 61 year old female, fatigued and mildly SOB with conversation. SKIN: thin pale skin HEAD: Atraumatic. Normocephalic. No temporal or scalp tenderness. EYES: Extraocular motions intact. No scleral icterus. No injection or drainage. ENT: Nose without bleeding, purulent drainage or septal hematoma. Throat without erythema, tonsillar hypertrophy or exudate. Uvula midline. Airway patent. NECK: Trachea midline. No JVD or lymphadenopathy. Supple, nontender, no meningeal signs. CARDIOVASCULAR: Regular rate and rhythm without murmurs, gallops, or rubs. RESPIRATORY: Clear to auscultation. Breath sounds equal bilaterally. No wheezes , rales, or rhonchi. GASTROINTESTINAL: Abdomen soft, non-tender, nondistended. No guarding. MUSCULOSKELETAL: Extremities without clubbing, cyanosis, or edema. No joint tenderness, effusion, or edema noted. No calf tenderness. Negative Homans sign bilaterally. NEUROLOGICAL: Awake and alert.no focal deficits. Motor and sensory grossly within normal limits. 3-4 out of 5 muscle strength in all muscle groups. slow speech. Laboratory Laboratory Tests Test 07/24/16 07/24/16 19:15 20:37 White Blood Count 6.9 Red Blood Count 2.29 Hemoglobin 6.6 Hematocrit 19.3 Mean Corpuscular Volume 84.1 Mean Corpuscular Hemoglobin 28.7 Mean Corpuscular Hemoglobin 34.1 Concent Red Cell Distribution Width 19.1 Platelet Count 283 Mean Platelet Volume 8.9 Neutrophils (%) (Auto) 85.0 Lymphocytes (%) (Auto) 4.2 Monocytes (%) (Auto) 9.1 Eosinophils (%) (Auto) 1.1 Basophils (%) (Auto) 0.6 Neutrophils # (Auto) 5.8 Lymphocytes # (Auto) 0.3 Monocytes # (Auto) 0.6 Eosinophils # (Auto) 0.1 Basophils # (Auto) 0.0 CBC Comment AUTO DIFF Differential Total Cells 100 Counted Neutrophils % (Manual) 99 Monocytes % 1 Neutrophils # (Manual) 6.8 Differential Comment FINAL DIFF MANUAL Hypersegmented Polys 1+ Platelet Estimate NORMAL Platelet Morphology Comment NORMAL Stomatocytes 1+ Prothrombin Time 12.8 Prothromb Time International 1.2 Ratio Activated Partial 23.5 Thromboplast Time Sodium Level 129 Potassium Level 3.2 Chloride Level 88 Carbon Dioxide Level 32.4 Anion Gap 9 Blood Urea Nitrogen 7 Creatinine 0.34 Estimat Glomerular Filtration 195 Rate Random Glucose 110 Calcium Level 7.8 Total Bilirubin 0.3 Aspartate Amino Transf 18 (AST/SGOT) Alanine Aminotransferase 7 (ALT/SGPT) Alkaline Phosphatase 156 Total Protein 5.7 Albumin 1.5 Blood Type O POSITIVE Antibody Screen NEGATIVE Crossmatch Leukocyte-Reduced Red Blood Cells Blood Bank Comment Result Diagram: 07/24/16191407/24/161914 Assessment and Plan Assessment and Plan This is a 61-year-old female with history of alcoholic hepatitis, hypertension, cervical cancer diagnosed august 2015 s/p chemo and radiation, CVA, COPD, HTN and lung cancer followed by Dr. Rodriguez. Patient presents from [facility] for evaluation of low hemoglobin. Patient is a poor historian therefore information gathered from patient as well as prior computerized chart. anemia- symptomatic with Hemoccult positive stool 2 units PRBC GI consult Request records from [facility] HTN- continue home medications metoprolol 12.5 mg BID Hypokalemia- replaced by ER with 40 Meq KCL Magnesium level ordered recheck BMP in AM Lung CA follow up outpatient with Dr. Rodriguez after DC DVT prophylaxis- SCDs, avoid chemical DVT prophylaxis in light of GI bleed Inge Vergara Jul 25, 2016 03:01
[2016-07-25] MEDS: RESP: ALBUTEROL 2.5 MG/IPRATROPIUM 0.5 MG NEB (SCH) NEB ×4 (03:50→20:35)
[2016-07-25] MEDS: SODIUM CHLORIDE 0.9% FLUSH 5 ML FLUSH FLUSH SCH ×2 (08:33→21:10)
[2016-07-25] MEDS: METOPROLOL TARTRATE 25 MG TAB PO SCH ×2 (08:34→21:11)
[2016-07-25] MEDS: POTASSIUM CHLORIDE 10 MEQ CONTROLLED RELEASE TAB PO SCH (08:35)
[2016-07-25] MEDS: FUROSEMIDE 20 MG TAB PO SCH (08:38)
[2016-07-25] MEDS: PANTOPRAZOLE SOD 40 MG DELAYED RELEASE TAB PO SCH (08:38)
[2016-07-25] MEDS: ONDANSETRON ODT 4 MG TAB PO SCH ×3 (09:00→18:08)
--- NOTE | 2016-07-25 09:58 | HHI.PR ---
Subjective Remarks Follow up for anemia. The patient denies noticing any recent hematemesis, melena , hematochezia. Denies abdominal pain/nausea/vomiting. She admits to just feeling weak and fatigued recently. She agrees to EGD today if needed. She is hungry and wants to eat. Awaiting GI evaluation. Objective Vitals Vital Signs Date Time Temp Pulse Resp B/P Pulse Ox O2 Delivery O2 Flow Rate FiO2 07/25/16 03:53 95 Nasal Cannula 2.00 07/25/16 03:34 98.2 70 19 132/71 96 07/25/16 02:34 66 20 147/70 99 07/25/16 02:19 98.0 67 20 162/100 100 07/24/16 23:49 64 07/24/16 23:39 98.0 67 19 162/70 100 07/24/16 22:34 98.6 68 16 162/78 99 Nasal Cannula 2 07/24/16 22:19 98.6 66 17 153/70 98 Nasal Cannula 2 07/24/16 21:00 71 16 141/67 97 Nasal Cannula 2 07/24/16 18:21 98.8 72 18 140/66 98 I/O 07/24/16 07/24/16 07/24/16 07/25/16 07/25/16 07/25/16 07:00 15:00 23:00 07:00 15:00 23:00 Intake Total 600 ml Balance 600 ml Intake Packed Cells 600 ml Result Diagram: 07/24/16191407/24/161914 Imaging Last Impressions Chest X-Ray 07/25/16 0000 Signed Impressions: Service Date/Time: Monday, July 25, 2016 02:12 - CONCLUSION: 1. Cardiomegaly 2. Subsegmental ectasis right base with small right effusion Ankush Gibbs MD Objective Remarks GENERAL: Well-nourished, well-developed female patient in [facility]. SKIN: Warm and dry. No rash. HEENT: Normocephalic. Atraumatic. Pupils equal and round. No scleral icterus. No injection or drainage. Mucous membranes pink and moist. NECK: Supple. Trachea midline. CARDIOVASCULAR: Regular rate and rhythm. S1, S2 noted. No murmur appreciated. RESPIRATORY: No accessory muscle use. Clear to auscultation. Breath sounds equal bilaterally. GASTROINTESTINAL: Abdomen soft, non-tender, nondistended. Normoactive bowel sounds x4. MUSCULOSKELETAL: No obvious deformities. Extremities without clubbing, cyanosis , or edema. NEUROLOGICAL: Awake and alert. No obvious cranial nerve deficits. Motor grossly within normal limits. Normal speech. PSYCHIATRIC: Appropriate mood and affect; insight and judgment normal. Medications and IVs Current Medications Medications (Trade) Dose Ordered Sig/Rachelle Route Start Time Stop Time Status Last Admin (NS Flush) 2 ml UNSCH PRN FLUSH 07/24/16 21:00 (NS Flush) 2 ml BID FLUSH 07/24/16 21:00 07/25/16 08:33 (Narcan Inj) 0.4 mg UNSCH PRN IV 07/24/16 21:00 (Lasix) 20 mg DAILY PO 07/25/16 09:00 07/25/16 08:38 ([place] 5-325 Mg) 1 tab Q6HR PRN PO 07/25/16 03:15 07/25/16 11:01 (Lopressor) 12.5 mg Q12HR PO 07/25/16 09:00 07/25/16 08:34 (Protonix) 40 mg DAILY PO 07/25/16 09:00 07/25/16 08:38 (KCl) 10 meq DAILY PO 07/25/16 09:00 07/25/16 08:35 (Zofran Odt) 8 mg TID PO 07/25/16 09:00 07/25/16 14:01 A/P Problem List: (1) Anemia ICD Code: D64.9 Status: Acute (2) GI bleed ICD Code: K92.2 Status: Acute Assessment and Plan 61-year-old female with PMH of alcoholic hepatitis, HTN, cervical cancer diagnosed august 2015 s/p chemo and radiation, CVA, COPD, HTN and lung cancer followed by Dr. Rodriguez; presents from [facility] for evaluation of low hemoglobin, Patient is a poor historian therefore information gathered from patient as well as EMR. Acute on Chronic Symptomatic Normocytic Anemia: secondary to GI bleeding. Patient with generalized weakness/fatigue for several days. Hemoccult positive stool in the ER. Hgb 6.6 upon arrival. -s/p 2 units PRBC transfusion, Hgb now 9.0 -EGD/colonoscopy 07/03/16 at [facility], showed portal htn gastropathy, duodenitis; multiple colon polyps removed, and diffuse radiation induced colitis ; No active bleeding found. -Consulted GI, appreciate recommendations -diet as tolerated -monitor CBC and transfuse as needed -per GI, no need for urgent endoscopic evaluation at this time, outpatient f/ up with GI HTN: continue home medications metoprolol 12.5 mg BID. Monitor BP, adjust antihypertensives as needed. Hypokalemia/Hypomagnesemia: replaced by ER with 40 Meq KCL. Mag 1.1, give IV Mag sulfate 1G x2 now. Repeat K/Mag in the am. Lung CA: follow up outpatient with Dr. Rodriguez after DC DVT prophylaxis- SCDs, avoid chemical DVT prophylaxis in light of GI bleed Written by Shaina Jose, acting as scribe for Dr. Montero on 07/25/16 at 09:57. The documentation accurately reflects the work performed [id number] by me on at 09:57. Problem Qualifiers (1) Anemia: Qualified Code: D64.9 - Anemia, unspecified type (2) GI bleed: Qualified Code: K92.2 - Gastrointestinal hemorrhage, unspecified gastrointestinal hemorrhage type Shaina Jose PA-C Jul 25, 2016 09:57 Peña Montero DO Jul 25, 2016 20:57
[2016-07-25] MEDS: ACETAMINOPHEN/HYDROcodone 325 MG/5 MG TAB PO PRN ×2 (11:01→16:56)
[2016-07-25 12:43] LABS: AUTOMATED NEUTROPHIL # 4.5 TH/MM3 (1.8-7.7); BASOPHIL % 0.3 % (0.0-2.0); EOSINOPHIL % 0.8 % (0.0-4.0); HEMATOCRIT 26.2 % (35.0-46.0); HEMO FLAGS DIFF FINAL; LYMPH % 4.9 % (9.0-44.0); LYMPHOCYTE # 0.3 TH/MM3 (1.0-4.8); MEAN CELL VOLUME 84.2 FL (80.0-100.0); MEAN CORPUSCULAR HEMOGLOBIN 28.8 PG (27.0-34.0); MEAN CORPUSCULAR HGB CONC 34.3 % (32.0-36.0); MONO % 9.2 % (0.0-8.0); NEUT % 84.8 % (16.0-70.0); PLATELET COUNT 283 TH/MM3 (150-450); RED BLOOD COUNT 3.12 MIL/MM3 (4.00-5.30); RED CELL DISTRIBUTION WIDTH 17.8 % (11.6-17.2); WHITE BLOOD COUNT 5.3 TH/MM3 (4.0-11.0)
[2016-07-25 13:05] LABS: BICARBONATE 34.8 MEQ/L (21.0-32.0); MAGNESIUM 1.1 MG/DL (1.5-2.5); POTASSIUM 3.2 MEQ/L (3.5-5.1)
--- NOTE | 2016-07-25 13:15 | HHI.GIFU ---
GI Follow-up Note Consult Follow-up Full consult dictated: ASSESSMENT/PLAN: 1. Acute and chronic Anemia Suspect occult GI blood loss Pt recently had EGD and colon on 07/03/16 at [facility]. 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 No active bleeding was found RECS: 1. Diet as tolerated 2. Rpt CBC and transfuse as needed. 3. No urgent need to endoscopic procedures. 4. Out pt follow up with GI It was a pleasure seeing Karen Mccauley. Thank you for this consult. Entered by: Nataliya Weldon MD Jul 25, 2016 13:15
--- NOTE | 2016-07-25 14:09 | MB ---
cc: ABAD BOBO DATE OF CONSULTATION: 07/25/2016. REASON FOR CONSULTATION: Anemia. Possible GI bleed. HISTORY OF PRESENT ILLNESS: This is a pleasant 61-year-old female who presented to the hospital from [facility] with evaluation of low hemoglobin. She overall is somewhat of a poor historian and some of the records I obtained from the patient's chart. She was recently hospitalized at this hospital an issue with C. difficile which was appropriately treated and she was discharged. Then she was admitted to [facility] for GI bleed and underwent an EGD and colonoscopy at that time and was found to have EGD significant for possible esophageal varices, which were not bleeding, mild portal hypertension appearance of the stomach and duodenitis in the duodenum. Her colonoscopy was significant for several small colon polyps which were removed. Additionally, she had evidence of diffuse colitis likely secondary to radiation. She was treated appropriately and was discharged home and was supposed to followup outpatient on 07/24/2016 at the office. Apparently she did not show up for the appointment but she was admitted to the hospital due to severe fatigue, weakness. In the emergency room, she was noted to have significantly hemoglobin of 6.6. GI was consulted for further help in management. PAST MEDICAL HISTORY: 1. Distant history of alcoholic hepatitis. 2. Hypertension. 3. History of cervical cancer diagnosed August of 2015 status post chemotherapy and radiation. 4. History of CVA. 5. COPD. 6. Hypertension. 7. History of lung cancer. PAST SURGICAL HISTORY: 1. Tonsillectomy. 2. Port placement. 3. section. ALLERGIES: 1. PENICILLIN. 2. STRAWBERRIES. HOME MEDICATIONS: 1. Hydrocodone. 2. Metoprolol. 3. Furosemide. 4. Folic acid. 5. Potassium. 6. Protonix. 7. Zofran. FAMILY HISTORY: No GI malignancies. SOCIAL HISTORY: She uses half pack a day of tobacco, drinks per three times a week, denies illicit drug use. REVIEW OF SYSTEMS: A twelve-point review of systems was obtained and was negative or noncontributory except for the above-mentioned in the history of present illness. PHYSICAL EXAMINATION: VITAL SIGNS: 69, 18, 156/76 and 98%. GENERAL: Alert oriented and in no acute distress. HEAD, EYES, EARS, NOSE, THROAT: Normocephalic and atraumatic. Pupils equal, round and reactive to light and accommodation. Extraocular muscles intact. Oral mucosa is moist. NECK: The neck is supple. Nontender. No carotid bruits. No jugular venous distention noted. LUNGS: Respirations are clear to auscultation. CARDIOVASCULAR: Normal rate and rhythm. GASTROINTESTINAL: Soft and nontender and nondistended. Bowel sounds are present. GENITOURINARY: No significant tenderness noted. No lymphadenopathy noted. MUSCULOSKELETAL: Normal range of motion. Slight stiffness. SKIN: Warm and dry and intact. NEUROLOGIC: Alert and oriented. No focal deficits. PSYCHIATRIC: Cooperative. Appropriate mood and affect. LABORATORY DATA: WBC 5.3, hemoglobin initially 6.6, received a transfusion and currently it is 9.0, MCV 84.2, platelet count of 283,000. Sodium 135, potassium 3.2, chloride 94, bicarbonate 34.8, BUN 5, creatinine 0.3. Total bilirubin 3.0, AST 18, ALT 7, alkaline phosphatase 156. Total protein is 5.7. IMPRESSION: 1. Symptomatic anemia which may be secondary to acute on chronic occult blood loss due to history of portal hypertension and history of radiation-induced colitis. 2. Radiation-induced colitis which was biopsied in June. 3. History of lung cancer. 4. History of cervical cancer with chemoradiation. RECOMMENDATIONS: 1. Monitor hemoglobin and transfuse as necessary. 2. In regards to workup, the patient already underwent an EGD and colonoscopy at the last hospitalization at [facility] on July 03, 2016. Therefore, I do not believe that any urgent endoscopic workup is necessary at this time. The patient does not have any florid or overt signs of active GI bleeding. 3. At this time, I would recommend restarting diet as tolerated. Treat symptomatically and can be followed up outpatient with GI on discharge once everything stabilizes. This was discussed with her and she is agreeable to this plan. MD JAMIE Dunbar/ILEANA /1:19 PM /1:46 PM
[2016-07-25] MEDS: MAGNESIUM SULFATE 1 GM PREMIX 100 ML IV SCH ×2 (16:22→17:37)
[2016-07-25] MEDS ORDERED: POTASSIUM CHLORIDE 20 MEQ CONTROLLED RELEASE TAB PO ONE (18:00)
[2016-07-26] MEDS: RESP: ALBUTEROL 2.5 MG/IPRATROPIUM 0.5 MG NEB (SCH) NEB ×2 (03:32→10:08)
[2016-07-26 03:40] VITALS: BP 149/84; PULSE 75; RESP 20; TEMP 98; O2SAT 95
[2016-07-26 05:33] LABS: AUTOMATED NEUTROPHIL # 3.9 TH/MM3 (1.8-7.7); BASOPHIL % 0.2 % (0.0-2.0); EOSINOPHIL # 0.1 TH/MM3 (0-0.4); EOSINOPHIL % 2.9 % (0.0-4.0); HEMATOCRIT 24.6 % (35.0-46.0); HEMO FLAGS DIFF FINAL; LYMPH % 6.1 % (9.0-44.0); LYMPHOCYTE # 0.3 TH/MM3 (1.0-4.8); MEAN CORPUSCULAR HEMOGLOBIN 28.6 PG (27.0-34.0); MEAN CORPUSCULAR HGB CONC 33.7 % (32.0-36.0); MONO % 9.6 % (0.0-8.0); NEUT % 81.2 % (16.0-70.0); PLATELET COUNT 273 TH/MM3 (150-450); RED CELL DISTRIBUTION WIDTH 17.7 % (11.6-17.2); WHITE BLOOD COUNT 4.8 TH/MM3 (4.0-11.0)
[2016-07-26 06:35] LABS: BICARBONATE 34.9 MEQ/L (21.0-32.0); MAGNESIUM 1.4 MG/DL (1.5-2.5)
[2016-07-26 06:41] LABS: POTASSIUM 2.9 MEQ/L (3.5-5.1)
[2016-07-26] MEDS ORDERED: POTASSIUM CHLORIDE 20 MEQ CONTROLLED RELEASE TAB PO ONE ×2 (07:00→11:00)
[2016-07-26] MEDS ORDERED: POTASSIUM CHLOR 20 MEQ PREMIX 100 ML IV SCH (07:00)
[2016-07-26] MEDS: ACETAMINOPHEN/HYDROcodone 325 MG/5 MG TAB PO PRN (07:37)
[2016-07-26] MEDS: MAGNESIUM SULFATE 1 GM PREMIX 100 ML IV SCH ×2 (08:00→08:02)
[2016-07-26] MEDS: SODIUM CHLORIDE 0.9% FLUSH 5 ML FLUSH FLUSH SCH (09:00)
[2016-07-26] MEDS: ONDANSETRON ODT 4 MG TAB PO SCH ×2 (09:58→11:25)
[2016-07-26] MEDS: METOPROLOL TARTRATE 25 MG TAB PO SCH (09:58)
[2016-07-26] MEDS: POTASSIUM CHLORIDE 10 MEQ CONTROLLED RELEASE TAB PO SCH (09:58)
[2016-07-26] MEDS: FUROSEMIDE 20 MG TAB PO SCH (09:59)
[2016-07-26] MEDS: PANTOPRAZOLE SOD 40 MG DELAYED RELEASE TAB PO SCH (09:59)
[2016-07-26 10:10] VITALS: O2SAT 95
[2016-07-26] MEDS ORDERED: POTASSIUM CHLORIDE 10 MEQ CONTROLLED RELEASE TAB PO ONE (11:00)
[2016-07-26 11:52] VITALS: BP 155/86; PULSE 70; RESP 20; TEMP 98.1; O2SAT 94
--- NOTE | 2016-07-26 12:06 | HHI.GIFU ---
GI Follow-up Note Consult Follow-up Subjective: Patient laying in bed comfortably, no new complaints. Feel well wants to go back to [facility] Objective: PHYSICAL EXAMINATION: Vitals signs stable No fever HEENT: Pupils round and reactive to light; normocephalic; atraumatic; no jaundice. Throat is clear. NECK: Neck is supple, no JVD, no lymphadenopathy. CHEST: Chest is clear to auscultation and percussion. CARDIAC: Regular rate and rhythm with no murmur gallop or rubs. ABDOMEN: Soft, nondistended, nontender; no hepatosplenomegaly; bowel sounds are present in all four quadrants. EXTREMITIES: No clubbing, cyanosis, or edema. SKIN: Normal; no rash; no jaundice. REFRIGERATION UNIT REPAIRER: No focal deficits; alert and oriented times three. Available Data (labs, X- Rays, Procedures) : ASSESSMENT/PLAN: 1. Anemia 2. Reviewed Recent EGD/Colon - gastritis and radiation colitis 3. Hypokalemia Recs: 1. START Asacol 800 mg once per day 2. PPi daily 3. Replace K 3. No objection to discharge from GI stand point. It was a pleasure seeing Karen Mccauley. Thank you for this consult. Entered by: Nataliya Weldon MD Jul 26, 2016 12:06
--- NOTE | 2016-07-26 12:32 | HHI.PR ---
Subjective Remarks Follow up for anemia with GIB. The patient again reports feeling well today. Denies any abdominal pain, nausea/vomiting, diarrhea, or fevers/chills. She is tolerating oral intake. She wants to go back to [facility]. Cleared for discharge by GI. Explained to the patient we need improvement of electrolytes prior to discharge, patient verbalized understanding. She did not tolerate IV KCl therefore additional doses of po KCl given. Objective Vitals Vital Signs Date Time Temp Pulse Resp B/P Pulse Ox O2 Delivery O2 Flow Rate FiO2 07/26/16 11:52 98.1 70 20 155/86 94 07/26/16 11:05 20 07/26/16 10:10 95 21 07/26/16 03:40 98.0 75 20 149/84 95 07/25/16 23:27 97.4 71 20 148/74 95 07/25/16 20:37 100 Nasal Cannula 2.00 07/25/16 19:16 98.0 65 20 137/74 97 Result Diagram: 07/26/16 0429 07/26/16 0429 Imaging Last Impressions Chest X-Ray 07/25/16 0000 Signed Impressions: Service Date/Time: Monday, July 25, 2016 02:12 - CONCLUSION: 1. Cardiomegaly 2. Subsegmental ectasis right base with small right effusion Ankush Gibbs MD Objective Remarks GENERAL: Well-nourished, well-developed female patient in [facility]. SKIN: Warm and dry. No rash. HEENT: Normocephalic. Atraumatic. Pupils equal and round. No scleral icterus. No injection or drainage. Mucous membranes pink and moist. NECK: Supple. Trachea midline. CARDIOVASCULAR: Regular rate and rhythm. S1, S2 noted. No murmur appreciated. RESPIRATORY: No accessory muscle use. Clear to auscultation. Breath sounds equal bilaterally. GASTROINTESTINAL: Abdomen soft, non-tender, nondistended. Normoactive bowel sounds x4. MUSCULOSKELETAL: No obvious deformities. Extremities without clubbing, cyanosis , or edema. NEUROLOGICAL: Awake and alert. No obvious cranial nerve deficits. Motor grossly within normal limits. Normal speech. PSYCHIATRIC: Flat affect but pleasant mood; insight and judgment normal. Medications and IVs Current Medications Medications (Trade) Dose Ordered Sig/Rachelle Route Start Time Stop Time Status Last Admin (NS Flush) 2 ml UNSCH PRN FLUSH 07/24/16 21:00 (NS Flush) 2 ml BID FLUSH 07/24/16 21:00 07/26/16 09:00 (Narcan Inj) 0.4 mg UNSCH PRN IV 07/24/16 21:00 (Lasix) 20 mg DAILY PO 07/25/16 09:00 07/26/16 09:59 ([place] 5-325 Mg) 1 tab Q6HR PRN PO 07/25/16 03:15 07/26/16 07:37 (Lopressor) 12.5 mg Q12HR PO 07/25/16 09:00 07/26/16 09:58 (Protonix) 40 mg DAILY PO 07/25/16 09:00 07/26/16 09:59 (KCl) 10 meq DAILY PO 07/25/16 09:00 07/26/16 09:58 (Zofran Odt) 8 mg TID PO 07/25/16 09:00 07/26/16 11:25 (Asacol Hd Dr) 800 mg DAILY PO 07/26/16 14:00 A/P Problem List: (1) Anemia ICD Code: D64.9 Status: Acute (2) GI bleed ICD Code: K92.2 Status: Acute Assessment and Plan 61-year-old female with PMH of alcoholic hepatitis, HTN, cervical cancer diagnosed august 2015 s/p chemo and radiation, CVA, COPD, HTN and lung cancer followed by Dr. Rodriguez; presents from [facility] for evaluation of low hemoglobin, Patient is a poor historian therefore information gathered from patient as well as EMR. Acute on Chronic Symptomatic Normocytic Anemia: secondary to GI bleeding. Patient with generalized weakness/fatigue for several days. Hemoccult positive stool in the ER. Hgb 6.6 upon arrival. -s/p 2 units PRBC transfusion, Hgb 9.0, 8.3, stable -EGD/colonoscopy 07/03/[address] [facility], showed portal htn gastropathy, duodenitis; multiple colon polyps removed, and diffuse radiation induced colitis ; No active bleeding found. -Consulted GI, no need for urgent endoscopic evaluation at this time, outpatient f/up with GI, ok to discharge -GI started on Asacol 800mg qd -diet as tolerated, patient tolerating well HTN: continue home medications metoprolol 12.5 mg BID. Monitor BP, adjust antihypertensives as needed. Intractable Hypokalemia/Hypomagnesemia: replaced by ER with 40 Meq KCL. Mag 1.1 , given IV Mag sulfate 1G x2 now. Repeat K/Mag still low today, given additional KCl/Mag replacement, will recheck labs this afternoon. Lung CA: follow up outpatient with Dr. Rodriguez after DC DVT prophylaxis- SCDs, avoid chemical DVT prophylaxis in light of GI bleed Discussed with Dr. Montero and CDU RN. Discharge Planning Possible discharge today if electrolytes improve on repeat labs this afternoon. Discharge patient to [facility] Condition on discharge: Improved Regular Diet as tolerated Ad Irina activity Rx written: KCl 20meq daily Follow-up with primary care physician Dr. Antonio and gastroenterology within 1 week Problem Qualifiers (1) Anemia: Qualified Code: D64.9 - Anemia, unspecified type (2) GI bleed: Qualified Code: K92.2 - Gastrointestinal hemorrhage, unspecified gastrointestinal hemorrhage type Shaina Jose PA-C Jul 26, 2016 12:32 pm
[2016-07-26 13:22] LABS: MAGNESIUM 1.4 MG/DL (1.5-2.5); POTASSIUM 3.8 MEQ/L (3.5-5.1)
[2016-07-26] MEDS ORDERED: [UNRECOGNIZED DRUG - OTHER] PO (13:22)
[2016-07-26] MEDS ORDERED: K-TA10TA PO (13:22)
--- NOTE | 2016-07-26 13:23 | HHI.DCPOC ---
Discharge Care Plan Diagnosis: (1) Anemia (2) GI bleed (3) Colitis due to radiation (4) Hypomagnesemia (5) Hypokalemia Goals to Promote Your Health * To prevent worsening of your condition and complications * To maintain your health at the optimal level Directions to Meet Your Goals Take your medications as prescribed Follow your dietary instruction Follow activity as directed Keep your appointments as scheduled Take your immunizations and boosters as scheduled If your symptoms worsen call your PCP, if no PCP go to Urgent Care Center or Emergency Room Smoking is Dangerous to Your Health. Avoid second hand smoke Call the 24-hour hour crisis hotline for domestic abuse at Shaina Jose PA-C Jul 26, 2016 13:22
[2016-07-26] MEDS ORDERED: MAGO400T PO (13:25)
[2016-07-26] MEDS ORDERED: MESALAMINE HD 800 MG DELAYED RELEASE TAB PO SCH (14:00)
== END 2016-07-26 16:16 | DRG 378 ==
LOC: NEPC 18:02 → NEDA 20:54 → NEPGCP 23:31
PROVIDERS: ADMIT Hospitalist; ATTEND Hospitalist
DX: K92.2 Gastrointestinal hemorrhage, unspecified (principal); K52.0 Gastroenteritis and colitis due to radiation; D50.0 Iron deficiency anemia secondary to blood loss (chronic); C34.90 Malignant neoplasm of unspecified part of unspecified bronchus or lung; K70.10 Alcoholic hepatitis without ascites; I10 Essential (primary) hypertension; F17.210 Nicotine dependence, cigarettes, uncomplicated; E83.42 Hypomagnesemia; J44.9 Chronic obstructive pulmonary disease, unspecified; E87.6 Hypokalemia; Z85.41 Personal history of malignant neoplasm of cervix uteri; Z85.118 Personal history of other malignant neoplasm of bronchus and lung; Y84.2 Radiological procedure and radiotherapy as the cause of abnormal reaction of the patient, or of later complication, without mention of misadventure at the time of the procedure; Z86.73 Personal history of transient ischemic attack (TIA), and cerebral infarction without residual deficits; Z92.21 Personal history of antineoplastic chemotherapy; Z92.3 Personal history of irradiation
CPT/HCPCS: 36430; 71010; 80048; 80053; 83735; 84132; 85007; 85025; 85027; 85610; 85730; 86850; 86900; 86901; 86920; 94640; 94664; 96374; C9113; J1940; J3475; J3480; J7050; P9016